=== PATIENT | male | born 1935 | race Two or more races ===

== ENCOUNTER → 2024-06-05 | Outpatient (BNVA) | payer MEDICARE, SELFPAY | END | disposition home or self-care (01) | PROVIDERS: PCP Internal Medicine; Referring Provider Internal Medicine; Visit Provider Urology | DX: N40.1 Benign prostatic hyperplasia with lower urinary tract symptoms (principal); N13.8 Other obstructive and reflux uropathy; N32.89 Other specified disorders of bladder; N32.3 Diverticulum of bladder; Z96.0 Presence of urogenital implants; I10 Essential (primary) hypertension; I25.10 Atherosclerotic heart disease of native coronary artery without angina pectoris | CPT/HCPCS: 99212; G0463 ==

== ENCOUNTER → 2024-06-20 | Outpatient (BNVA) | payer MEDICARE, SELFPAY | END | disposition home or self-care (01) | PROVIDERS: PCP Internal Medicine; Referring Provider Internal Medicine; Visit Provider Urology | DX: N32.89 Other specified disorders of bladder (principal); N32.3 Diverticulum of bladder; Z96.0 Presence of urogenital implants; Z98.890 Other specified postprocedural states; C67.9 Malignant neoplasm of bladder, unspecified; I10 Essential (primary) hypertension; E78.00 Pure hypercholesterolemia, unspecified | CPT/HCPCS: 52310; 96372; 99212; A4217; A4649; C1894; J3260; A9270; G0463 ==

== ENCOUNTER 2024-07-24 14:05 | Inpatient (IN) | payer MEDICARE, SELFPAY ==
[2024-07-24] VITALS (24 sets, daily range): BP systolic 96–157; BP diastolic 44–78; PULSE 87–114; RESP 14–27; TEMP 36.5–37; O2SAT 81–97; BMI 31.0
--- NOTE | 2024-07-24 14:23 | EKG_ITS ---
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
--- NOTE | 2024-07-24 14:27 | XR_ITS ---
Examination: AP chest single view Technique one AP portable upright chest single view Exam date and time: July 24, 2024 1442 hours Comparison April 20, 2017 INDICATIONS: Shortness of breath today, history fluid buildup heart failure FINDINGS: Mild chronic heart failure Moderate enlargement cardiac contour with prominent vascular congestion Bibasilar opacity which may represent superimposed pneumonia Cardiac leads satisfactory position IMPRESSION: Mild chronic heart failure Consider superimposed bibasilar pneumonia Consider ultrasound left hemithorax follow-up to exclude left pleural fluid
[2024-07-24] MEDS: MORPHINE SULF INJ 10 MG/ML VIAL 2 MG IVP (15:22)
[2024-07-24] MEDS: FUROSEMIDE INJ 10 MG/ML 4ML VIAL 80 MG IVP (15:22)
[2024-07-24] MEDS: NITROGLYCERIN OINT 2% 1 INCH PACKET TOP (15:22)
--- NOTE | 2024-07-24 15:42 | EDNOTE_ITS ---
ED SOB =RME/HPI General Chief Complaint: Shortness of Breath/Dyspnea Stated Complaint: WATER LEFT LUNG, SOB; SENT BY DR CRABTREE Time Seen by Provider: 07/24/24 14:12 Arrival date/time: 07/24/24 14:05 RME / HPI RME / HPI Narrative: This section includes all my notes and documentations, including HPI, PE, and ED course. Ricki Stubbs MD HPI: 89-year-old male here with 1-2 week history of worsening cough, productive cough, purulent sputum, and dyspnea. No obvious fever. Increased leg swelling. Reports orthopnea. No chest pain. No other complaints. ROS: All negative except as documented in HPI. Physical Exam: General: Alert and oriented. Respiratory distress. Hypoxia noted needing oxygen. Eyes: Conjunctivae and lids clear. ENT: No nasal congestion. Neck: Supple. Heart: RRR. Lungs: In moderate respiratory distress. Moderately decreased air movement with bilateral rails, L > R. Abdomen: Soft and nontender. Back: No CVA tenderness. Skin: Warm and dry. Legs: Remarkable for pitting edema in the lower legs. Neuro: Alert and oriented X 3. At this point, I suspect CHF. And he was given Lasix and topical NTG and morphine. I reviewed all diagnostic test results. My interpretation of the EKG is sinus rhythm with LBBB. My interpretation of the chest x-ray is bilateral infiltrates, L > R. My review of the bilateral leg US report is no DVT. Blood tests and urine tests remarkable for WBC 30.6, D-dimer > 3820, negative troponin, BNP 31. At this point, diagnoses include: Acute respiratory failure with hypoxia, sepsis, pneumonia, elevated D-dimer, left lower effusion, and CHF. I discussed the case with our [employer] product consultant and our hospitalist. About the presentation and exam and diagnostics and treatments here. And need of further care in the hospital. Will accept the patient. Ricki Stubbs MD Related Data Home Medications ?Medication ?Instructions ?Recorded ?Confirmed simvastatin 40 mg tablet (Zocor) 20 mg PO HS #0 tabs 07/22/15 06/20/24 aspirin 81 mg tablet,delayed 81 mg PO QDAY 12/30/19 06/20/24 release (Aspir-) dorzolamide 2 %-timolol 0.5 % (PF) 1 drp ophthalmic (eye) QDAY 12/30/19 06/20/24 eye drops tamsulosin 0.4 mg capsule 0.4 mg PO QHS 05/02/24 06/20/24 finasteride 5 mg tablet 5 mg PO QDAY 06/20/24 06/20/24 telmisartan 20 mg tablet 20 mg PO QDAY 06/20/24 06/20/24 Allergies Allergy/AdvReac Type Severity Reaction Status Date / Time clopidogrel [From Plavix] Allergy Mild Rash Verified 07/24/24 14:09 Penicillins Allergy Verified 07/24/24 14:09 Course Quality Measures none Orders Category Date Time Status Bedside COVID-19 Antigen Test NOW Care 07/24/24 14:23 Active Bedside Influenza A&B Antigen Test NOW Care 07/24/24 14:[address] Screening NOW Care 07/24/24 14:27 Active EKG (ED ONLY) *Do not use* NOW Care 07/24/24 14:23 Completed EKG (ED ONLY) *Do not use* NOW Care 07/24/24 14:27 Completed Saline [Insert IV] NOW Care 07/24/24 14:26 Active Consult to Cardiology Stat Cons 07/24/24 16:[address] angio chest Stat Exams 07/24/24 14:27 Ordered EKG (ED Only) Stat Exams 07/24/24 14:23 Draft EKG (ED Only) Stat Exams 07/24/24 14:27 Ordered US pleural effusion Stat Exams 07/24/24 15:44 Completed US venous doppler LE BI Stat Exams 07/24/24 15:44 Completed XR chest 1V portable Stat Exams 07/24/24 14:27 Completed ABG [Arterial Blood Gas] Stat Lab 07/24/24 21:16 Completed BNP [B-Type Natriuretic Peptide] Stat Lab 07/24/24 15:16 Completed CBC Stat Lab 07/24/24 15:16 Completed CMP [Comprehensive Metabolic Panel] Stat Lab 07/24/24 15:16 Completed D-Dimer Stat Lab 07/24/24 15:16 Completed Magnesium Stat Lab 07/24/24 15:16 Completed TSH [Thyroid Stimulating Hormone] Stat Lab 07/24/24 15:16 Completed Troponin I Stat Lab 07/24/24 15:16 Completed UA, C/S IF [Urinalysis, C/S if Indicated] Stat Lab 07/24/24 15:44 Completed Azithromycin Inj [Zithromax Inj] 500 mg Med 07/24/24 16:31 Discontinued Sodium Chloride 0.9% 250 ml [Ns] 250 ml IV X1 Furosemide Inj [Lasix Inj] Med 07/24/24 14:25 Discontinued 80 mg IVP X1 ONE Morphine Inj Med 07/24/24 14:25 Discontinued 2 mg IVP X1 ONE Nitroglycerin Oint 2% [Nitro-paste Oint 2%] Med 07/24/24 14:25 Discontinued 1 inch TOP X1 ONE cefTRIAXone [Rocephin] 1,000 mg Med 07/24/24 16:31 Discontinued Sodium Chloride 0.9% (P) [Ns 0.9% (P)] 50 ml IV X1 Vital Signs Vital signs: Vital Signs Temperature 98.6 F 07/24/24 14:17 Pulse Rate 103 H 07/24/24 14:17 Respiratory Rate 20 07/24/24 14:17 Blood Pressure 136/62 H 07/24/24 14:17 Pulse Oximetry (%) 90 L 07/24/24 14:17 Oxygen Delivery Method Room Air 07/24/24 14:17 Shortness of Breath / Dyspnea Patient data External records reviewed:: [facility] previous records Clinical information provided by:: patient and family Social determinants that could affect healthcare access:: none Patient has the following chronic illnesses:: CAD and HTN How is presenting disease/condition affected by chronic disease/condition?: exacerbated by Evaluation data The following diagnostics were reviewed and interpreted by me:: lab results, radiology exam(s) and EKG tracing(s) (My interpretation of the EKG is: Sinus rhy thm (98 bpm) with left BBB. Ricki Stubbs MD) Lab and/or radiology exams considered but not ordered:: None Interpretation Summary: Acute respiratory failure with hypoxia, sepsis, pneumonia, elevated D-dimer, left lower effusion, and CHF. Medications / Prescriptions Medications or Prescriptions considered but not ordered:: None Medication administrations:: Medication Administration History Acetaminophen (Acetaminophen 325 Mg Tablet) 650 mg PO Q6H PRN PRN Reason: Fever >100.5 Stop: 08/23/24 17:22 Last Admin: 07/25/24 01:33 Dose: 650 mg Documented By: KARINE Acetaminophen (Acetaminophen 325 Mg Tablet) 650 mg PO Q6H PRN PRN Reason: PAIN SCALE 1-3 (mild Stop: 08/23/24 17:22 Hydrocodone Bitart/Acetaminophen (Hydrocodone/Apap 5/325 Tablet) 1 tab PO Q6HR PRN PRN Reason: PAIN SCALE 4-10(Mod-Sev Stop: 07/30/24 04:20 Last Admin: 07/25/24 04:39 Dose: 1 tab Documented By: KARINE Aspirin (Aspirin Ec 81 Mg Tabec) 81 mg PO QDAY [facility] Stop: 08/23/24 18:14 Last Admin: 07/24/24 20:11 Dose: 81 mg Documented By: KARINE Atorvastatin Calcium (Atorvastatin Calcium 20 Mg Tablet) 40 mg PO HS [facility] Stop: 08/23/24 20:59 Last Admin: 07/24/24 20:35 Dose: 40 mg Documented By: KARINE Bumetanide (Bumetanide Inj 0.25 Mg/Ml Vial 4 Ml) 2 mg IVP BIDD [facility] Stop: 08/23/24 17:59 Last Admin: 07/24/24 20:14 Dose: 2 mg Documented By: KARINE Docusate Sodium (Docusate Sod 100 Mg Capsule) 100 mg PO QDAY [facility]; Protocol Stop: 08/24/24 08:59 Doxycycline Hyclate (Doxycycline 100 Mg Tablet) 100 mg PO BID [facility] Stop: 07/31/24 20:59 Last Admin: 07/24/24 20:38 Dose: 100 mg Documented By: KARINE Heparin Sodium (Porcine) (Heparin Sod Inj 5000 Unit/Ml Vial) 5,000 unit SC Q8HR [facility] Stop: 08/07/24 21:59 Last Admin: 07/25/24 01:32 Dose: 5,000 unit Documented By: KARINE Co-signed By: URSULA Ceftriaxone Sodium/Dextrose (Rocephin/D5w 1gm Iv Premix) 50 mls @ 100 mls/hr IV QDAY [facility] Stop: 08/01/24 08:59 Losartan Potassium (Losartan Potassium 25 Mg Tablet) 50 mg PO QDAY [facility] Stop: 08/23/24 18:44 Last Admin: 07/24/24 20:12 Dose: 50 mg Documented By: KARINE Ondansetron HCl (Ondansetron Inj 2 Mg/Ml Inj 2 Ml) 4 mg IV Q6H PRN; Protocol PRN Reason: NAUSEA OR VOMITING Stop: 08/23/24 17:22 Tamsulosin HCl (Tamsulosin Hcl 0.4 Mg Capsule) 0.4 mg PO QDAY [facility] Stop: 08/23/24 17:44 Last Admin: 07/24/24 20:11 Dose: 0.4 mg Documented By: KARINE Discontinued Medications Bumetanide (Bumetanide Inj 0.25 Mg/Ml Vial 4 Ml) 1 mg IVP BID [facility] Stop: 08/23/24 20:59 Furosemide (Furosemide Inj 10 Mg/Ml 4ml Vial) 80 mg IVP X1 ONE Stop: 07/24/24 14:26 Last Admin: 07/24/24 15:22 Dose: 80 mg Documented By: EM Azithromycin 500 mg/ Sodium (Chloride) 250 mls @ 250 mls/hr IV X1 ONE Stop: 07/24/24 17:30 Last Infusion: 07/24/24 22:39 Dose: Infused Documented By: Admin: 07/24/24 20:15 Dose: 250 mls/hr Documented By: KARINE Ceftriaxone Sodium 1,000 mg/ (Sodium Chloride) 50 mls @ 100 mls/hr IV X1 ONE Stop: 07/24/24 17:00 Last Infusion: 07/24/24 18:49 Dose: Infused Documented By: Admin: 07/24/24 17:40 Dose: 100 mls/hr Documented By: EM Losartan Potassium (Losartan Potassium 25 Mg Tablet) 50 mg PO QDAY [facility] Stop: 08/23/24 18:29 Morphine Sulfate (Morphine Sulf Inj 10 Mg/Ml Vial) 2 mg IVP X1 ONE Stop: 07/24/24 14:26 Last Admin: 07/24/24 15:22 Dose: 2 mg Documented By: EM Nitroglycerin (Nitroglycerin Oint 2% 1 Inch Packet) 1 inch TOP X1 ONE Stop: 07/24/24 14:26 Last Admin: 07/24/24 15:22 Dose: 1 inch Documented By: EM Potassium Chloride (Potassium Chloride 20 Meq Tabcr) 40 meq PO X1 ONE Stop: 07/24/24 17:45 Last Admin: 07/24/24 20:35 Dose: 40 meq Documented By: KARINE Sodium Chloride (Sodium Chloride Rt 10% 15 Ml Nebu) 5 ml INH X1 ONE Stop: 07/24/24 17:51 Last Admin: 07/25/24 01:34 Dose: Not Given Documented By: AC Non-Admin Reason: Patient Refused In the ER, he was given Lasix and topical NTG and morphine only by me. Consultations Consultation(s) initiated? (list below): Yes Consultation #1 (Physician, Specialty, Details): Cardiology, Dr. Noyola Diagnosis Shortness of Breath Differential Diagnosis: acute exacerbation of chronic obstructive airways disease, congestive heart failure, community acquired pneumonia, asthma with exacerbation, pulmonary embolism and other (CHF, NC, sepsis, pleural effusion) Most likely diagnosis given after review of the tests above:: Acute respiratory failure with hypoxia, sepsis, pneumonia, elevated D-dimer, left lower effusion, and CHF. Admission Indicated Admission indicated?: indicated Explain why admission is indicated or not indicated:: Acute respiratory failure with hypoxia, sepsis, pneumonia, elevated D-dimer, left lower effusion, and CHF. Admission Request Was there a request for admission?: Yes Admission Attestation Admission request attestation: Discussed case with Hospitalist service regarding admission. Discussed patients ED course, exam findings, labs, and radiology results. The Hospitalist [agrees,declines] to accept the patient for admission. Disposition Plan Disposition Plan: Admit Critical Care Time Critical Care Time Critical Care Time: Yes Total Critical Care Time (min.): 36 Attestation: Due to a high probability of clinically significant, life threatening deterioration, the patient required my highest level of preparedness to intervene emergently and I personally spent this critical care time directly and personally managing the patient. This critical care time included obtaining a history; examining the patient; ordering and review of studies; arranging urgent treatment with development of a management plan; evaluation of patient's response to treatment; frequent reassessment; and discussions with family and other providers. It was exclusive of separately billable procedures and treating other patients and teaching time. Ricki Stubbs MD Discharge Plan Plan Patient Disposition: Admit Acute Care w/in Hospital Problem List Clinical Impression: Acute respiratory failure with hypoxia, Pneumonia, CHF (congestive heart failure), Elevated d-dimer, Pleural effusion, left, Sepsis
--- NOTE | 2024-07-24 15:44 | XR_ITS ---
Examination: Venous duplex lower extremity sonogram, bilateral. Date and time of exam: July 24, 2024 1632 hrs. Indications: Onset shortness of breath today, with bilateral leg edema Technique: Multiple sonographic images of the deep venous system have been obtained. B-mode/2-D grayscale imaging of vascular structures and Doppler spectral analysis (waveforms) and color performed Both legs are examined. Findings: Deep venous systems do not demonstrate abnormal echogenicity. All visualized deep veins exhibit compressibility. All visualized deep veins exhibit augmentation. Impression: Negative for deep vein thrombosis
--- NOTE | 2024-07-24 15:44 | XR_ITS ---
Examination: Ultrasound left hemithorax Technique: Grayscale sonographic images left hemithorax Indications: Shortness of breath today, pleural parenchymal disease left base on chest film today Exam date and time: July 24, 2024 1717 hrs. Findings: Moderate left pleural effusion Impression: Moderate left pleural effusion, amenable to ultrasound-guided thoracentesis
[2024-07-24 15:53] LABS: Collection Type, Urine Clean Catch
[2024-07-24 16:00] LABS: Basophils # (Auto) 0.1 Thou/mm3 (0.0-0.2); Basophils % (Auto) 0 % (0-2.5); Eosinophils # (Auto) 0.4 Thou/mm3 (0.0-0.5); Eosinophils % (Auto) 1 % (0-10); Hematocrit 32.8 % (41.0-53.0); Hemoglobin 10.7 g/dL (13.5-16.0); Immature Granulocytes % (Auto) 3 % (0-0); Immature Granulocytes Auto 0.88 Thou/mm3 (0.00-0.00); Lymphocytes # (Auto) 1.8 Thou/mm3 (1.0-4.8); Lymphocytes % (Auto) 6 % (10-50); Mean Corpuscular HGB Conc 32.6 g/dl (31.0-37.0); Mean Corpuscular Hemoglobin 27.3 pg (25.0-35.0); Mean Corpuscular Volume 84 fL (80-100); Monocytes # (Auto) 2.5 Thou/mm3 (0.0-0.8); Monocytes % (Auto) 8 % (0-12); Neutrophils # (Auto) 24.3 Thou/mm3 (1.8-7.7); Neutrophils % (Auto) 81 % (37-80); Nucleated Red Blood Cell # 0.03 Thou/mm3 (0.00-0.00); Nucleated Red Blood Cell % 0 /100 WBC (0); Platelet Count 418 Thou/mm3 (140-440); RDW Standard Deviation 44.1 fL (35.1-43.9); Red Blood Count 3.92 Miln/mm3 (4.50-5.90)
[2024-07-24 16:01] LABS: Bilirubin,Urine Negative (Negative); Blood,Urine Negative (Negative); Clarity,Urine Clear (Clear/Hazy); Color,Urine Lt-Yellow (Lt Yel-Yel); Culture Indicated,Urine Not Indicated; Glucose, Urine Negative (Negative); Hyaline Casts,Urine < 1 /hpf (0-1); Ketones,Urine Negative (Negative); Leukocyte Esterase,Urine Negative (Negative); Nitrite,Urine Negative (Negative); Protein,Urine Negative (Neg - Trace); RBC,Urine 1 /hpf (0-3); Specific Gravity,Urine 1.013 (1.001-1.035); Squamous Epithelial Cell,Urine < 1 /hpf (0-5); Urobilinogen,Urine Negative mg/dL (0.0-1.0); WBC,Urine 2 /hpf (0-5)
[2024-07-24 16:19] LABS: D-Dimer > 3820 ng/mL (<600)
[2024-07-24 16:26] LABS: Alanine Aminotransferase 55 U/L (10-49); Albumin, Serum 4.1 gm/dL (3.4-4.8); Albumin/Globulin Ratio 1.4 (1.2-2.2); Alkaline Phosphatase 128 U/L (46-116); Anion Gap 9 (7-16); Aspartate Amino Transferase 40 U/L (0-34); BUN/Creatinine Ratio 29 Ratio (12-20); Bilirubin,Total 0.5 mg/dL (0.3-1.2); Blood Urea Nitrogen 23 mg/dL (9-23); Calcium 9.7 mg/dL (8.3-10.6); Calcium (Corrected) 9.7 mg/dL (8.5-10.1); Carbon Dioxide 33.1 mMol/L (20.0-31.0); Chloride 93 mMol/L (98-107); Creatinine (Component) 0.8 mg/dL (0.6-1.3); Estimated Creatinine Clearance 74.1 mL/min (>60); Glucose 216 mg/dL (74-106); Osmolality,Calculated 280 (275-295); Potassium 3.6 mMol/L (3.4-5.1); Sodium 135 mMol/L (136-145); Thyroid Stimulating Hormone 0.46 uIU/mL (0.55-4.78); Total Protein 7.1 gm/dL (5.7-8.2); Troponin I < 0.020 ng/mL (0.0-0.045); eGFR > 60 See Note
[2024-07-24 16:27] LABS: B-Type Natriuretic Peptide 31 pg/mL (0-100)
[2024-07-24] MEDS: cefTRIAXone 1,000 MG in SODIUM CHLORIDE 0.9% (P) 50 ML 100 MG IV (17:40)
--- NOTE | 2024-07-24 17:42 | ECHO_ITS ---
Transthoracic Echo Report Ht (in): 69 Wt (lb): 210 Exam Location: ER Status: Emergency Real Estate Operations Manager: Mulu Bejarano Indications: Procedure Performed: BP: 117 / 50 HR: 83 Technical Quality: Technically difficult study MEASUREMENTS (Male / Female) Normal Values 2D ECHO LV Diastolic Diameter PLAX 4.3 cm 4.2 - 5.9 / 3.9 - 5.3 cm LV Systolic Diameter PLAX 2.8 cm IVS Diastolic Thickness 1.1 cm 0.6 - 1.0 / 0.6 - 0.9 cm LVPW Diastolic Thickness 1.1 cm 0.6 - 1.0 / 0.6 - 0.9 cm LV Relative Wall Thickness 0.5 LVOT Diameter 1.7 cm LA Volume Index 31.3 cm?/m? 16 - 28 cm?/m? Ascending Aorta Diameter 3.4 cm M-MODE Aortic Root Diameter MM 2.6 cm LA Systolic Diameter MM 3.6 cm LA Ao Ratio MM 1.4 AV Cusp Separation MM 2.0 cm DOPPLER AV Peak Velocity 194.7 cm/s AV Peak Gradient 15.2 mmHg AV Mean Gradient 7.7 mmHg AV Velocity Time Integral 33.8 cm LVOT Peak Velocity 117.0 cm/s LVOT Peak Gradient 5.5 mmHg LVOT Velocity Time Integral 23.0 cm LVOT Cardiac Index 1986.9 cm?/min?m? AV Area Cont Eq vti 1.5 cm? AV Area Cont Eq pk 1.4 cm? MV Peak Velocity 152.0 cm/s MV Peak Gradient 9.2 mmHg MV Mean Velocity 90.5 cm/s MV Mean Gradient 4.0 mmHg MV Area PHT 4.6 cm? Mitral E Point Velocity 70.3 cm/s Mitral A Point Velocity 138.0 cm/s Mitral E to A Ratio 0.5 LV E' Lateral Velocity 6.7 cm/s Mitral E to LV E' Lateral Ratio 10.4 LV E' Septal Velocity 6.1 cm/s Mitral E to LV E' Septal Ratio 11.5 FINDINGS Left Ventricle Normal left ventricular size, systolic function with no obvious regional wall motion abnormalities.M ild LVH. The ejection fraction is visually estimated at 60-65%. Right Ventricle The right ventricle is normal in size and systolic function. Left Atrium The left atrium is normal by two-dimensional, color flow and Doppler imaging with no structural abnormalities, no thrombus formation present. Right Atrium The right atrium is normal by two-dimensional imaging, color flow and Doppler imaging with no struct ural abnormalities, no thrombus formation present. Atrial Septum The interatrial septum appears normal with no evidence of a shunt. Aorta The aorta is normal by two-dimensional, color flow and Doppler interrogation. Mitral Valve The mitral valve is normal by two-dimensional, color flow and Doppler interrogation. There is no sig nificant mitral valve regurgitation. Aortic Valve Aortic bioprothetic valve mean gradient 4mmHg, vmax 1.5m/s. There is no significant aortic valve regurgitation. Tricuspid Valve The tricuspid valve is normal by two-dimensional, color flow and Doppler interrogation. There is tra ce tricuspid valve regurgitation. Pulmonic Valve There is no significant pulmonic valve regurgitation. Vessels The pulmonary artery appears normal. The inferior vena cava pulmonary and hepatic veins appear kim l. Pericardium The pericardium is normal by two-dimensional imaging. There is no significant pericardial effusion. Other Findings Large pleural effusion present. CONCLUSIONS Normal LV size and function. Mild LVH. Estimated EF 60-65% Normal RV size and function Aortic bioprothetic valve mean gradient 4mmHg, vmax 1.5m/s. Trace TR. Large pleural effusion present. Sherri Arguello (Electronically Signed) Final Date: 25 July 2024 11:56
--- NOTE | 2024-07-24 17:54 | ESHP_ITS ---
Documentation for date of: 07/24/24 HPI History of Present Illness Chief complaint: Shortness of breath History of present illness: Patient's son Was present at the bedside,contributed to the HPI. 89-year-old former smoker male with past medical history of hypertension, congestive heart failure, hyperlipidemia, status post pacemaker, CAD status post stents, status post valve replacement, BPH, cataracts came to the ED from Dr. Geovanna Noyola's office due to shortness of breath. Per son patient had a cold a few weeks ago and then just a few days ago started developing a dry cough approximately and experiencing shortness of breath has been progressive. Patient went to his PCP had an x-ray done was found with pleural effusion on the left side. At that point in time patient went to Dr. Noyola's office evaluated the patient and sent him to the ED. Patient is unable to lay flat endorses orthopnea and sleeps on recliner due to shortness of breath. ED course: Vitals on arrival significant for hypertension systolic blood pressure 130s, tachycardia 103, tachypnea, O2 sat 90% on room air. Labs significant for leukocytosis white blood cells in the 30s, hemoglobin 10.7, bicarb 33.1, chloride 93, glucose 216. D-dimer is more than 3820. EKG showed sinus rhythm with some paced beats possible left bundle branch block, chest x- ray showed left-sided pleural effusion and bibasilar pneumonia. In the ED patient received 80 mg of Lasix, morphine 2 mg, nitroglycerin PMHx: Hypertension, CHF, hyperlipidemia, BPH, cataract SxHx: Pacemaker, stents, TURP procedure, valve replacement Social Hx: Denies alcohol use, denies illicit substances use including THC, former smoker FHx: Unknown Review of Systems Review of Systems Narrative Review of Systems: Narrative ROS GENERAL: Denies fevers/chills or diaphoresis. HEENT: Denies headache or visual/hearing changes. Denies nasal discharge. NEURO: Denies unusual weakness or difficulty speaking. CARDIO: Denies chest pain or palpitations. PULM: + SOB, coughing GI: Denies abdominal pain, N/V/C/D/reflux/gas, bright red blood per rectum or melena. Reports having BMs. URO: Denies burning/itching/pain/urinary changes. MSK/EXT/SKIN: Denies joint/skeletal/muscle pain, issues/changes in upper or lower extremities, itchiness, or superficial pain. PSYCH: Cooperative, pleasant mood & affect. The rest of the review of systems is otherwise negative. Past Medical History Past Medical History NEUROLOGIC: Negative Neurological Disorders CARDIAC: Positive Cardiac Disorders, Cardiac Arrhythmia, Hypercholesterolemia, Valvular Heart Disease and Hypertension; Negative Myocardial Infarction, Atrial Fibrillation, Angina, Heart Murmur, Coronary Artery Disease, Atherosclerotic Heart Disease, Peripheral Vascular Disease, Aneurysm, Congestive Heart Failure, Congenital Heart Disease, Rheumatic Fever, Cardiomyopathy, Edema, Pericarditis, Cellulitis, Deep Vein Thrombosis, Hypotension or Varicose Veins RESPIRATORY: Negative Chronic Obstructive Pulmonary Disease (COPD) or Asthma GASTROINTESTINAL: Negative Gastrointestinal Disorders GENITOURINARY: Negative Genitourinary Disorders or Renal Disease MUSCULOSKELETAL: Negative Arthritis ENT: Positive Cataracts (BILATERAL) ENDOCRINE: Negative Endocrine Disorders, Diabetes Mellitus Type 1, Diabetes Mellitus Type 2, Hypoglycemia, Ubly's Syndrome, Mcduffie's Disease, Hyperthyroidism, Hypothyroidism, Parathyroid Disease, Pituitary Disease, Systemic Lupus Erythematosus, Syndrome of Inappropriate Antidiuretic Hormone (SIADH), Adrenal Disease or Graves' Disease HEMATOLOGIC: Negative Anemia or Sickle Cell Disease OTHER HISTORY: Positive Chicken Pox, Measles and Mumps; Negative Hospitalization (SINCE PACEMAKER), Autoimmune Disease, Falls or Cancer Family History FAMILY HISTORY: Positive Family Cardiac Disorders (FATHER HAD MO/PASSED AT 55Y.O.); Negative Family Psychiatric Problems, Family Respiratory Disorders, Family Gastrointestinal Problems, Family Cancer, Family Surgery or Family Anesthesia Reaction Surgical History SURGICAL: Positive Cardiac Surgery, Valve Replacement, Coronary Stent, Pacemaker (2017) and Tonsillectomy Social History SMOKING STATUS: Never smoker Exam Vital Signs Temp Pulse Resp BP Pulse Ox O2 Del Method O2 Flow Rate 97.7 F 99 23 H 157/78 H 94 L Nasal Cannula 2 07/24/24 17:40 07/24/24 17:40 07/24/24 17:40 07/24/24 17:40 07/24/24 17:40 07/24/24 17:40 07/24/24 17:40 Narrative Exam Physical Exam GENERAL: NAD, AAOx3, hard of hearing HEENT: Moist mucosa. Eyes open, symmetrical, & clear CARDIO: Heart RRR, no obvious murmurs PULM: No noted coughing/dyspnea CTA B/L, no R/W/R GI: Abdomen soft, nondistended, no pain on palpation. BSx4 SKIN/MSK/EXT: +2 pitting lower extremity edema, no pain on palpation. Pedal pulses present B/L NEURO: AAOx3, no focal neuro deficits, able to move all 4 extremities Results: Labs 07/25/24 04:25 07/25/24 04:25 Labs: Short CBC 07/24/24 Range/Units 15:16 WBC 30.0 H (3.8-10.6) Thou/mm3 Hgb 10.7 L (13.5-16.0) g/dL Hct 32.8 L (41.0-53.0) % Plt Count 418 (140-440) Thou/mm3 BMP 07/24/24 15:16 Sodium 135 L Potassium 3.6 Chloride 93 L Carbon Dioxide 33.1 H BUN 23 Creatinine 0.8 Glucose 216 H Calcium 9.7 Cardiac Enzymes 07/24/24 Range/Units 15:16 Troponin I < 0.020 (0.0-0.045) ng/mL Liver Function 07/24/24 Range/Units 15:16 Total Bilirubin 0.5 (0.3-1.2) mg/dL AST 40 H (0-34) U/L ALT 55 H (10-49) U/L Alkaline Phosphatase 128 H (46-116) U/L Albumin 4.1 (3.4-4.8) gm/dL Urine 07/24/24 Range/Units 15:44 Urine Color Lt-Yellow (Lt Yel-Yel) Urine Clarity Clear (Clear/Hazy) Urine pH 6.0 (5.0-7.0) Ur Specific [place] 1.013 (1.001-1.035) Urine Protein Negative (Neg - Trace) Urine Glucose (UA) Negative (Negative) Quality Measures Quality Measures VTE prophylaxis Advance care planning discussed with:: patient and child Medications Home Medications and Allergies Home Medications ?Medication ?Instructions ?Recorded ?Confirmed ?Type simvastatin 40 mg tablet (Zocor) 20 mg PO HS #0 tabs 07/22/15 06/20/24 History aspirin 81 mg tablet,delayed 81 mg PO QDAY 12/30/19 06/20/24 History release (Aspir-) dorzolamide 2 %-timolol 0.5 % (PF) 1 drp ophthalmic (eye) QDAY 12/30/19 06/20/24 History eye drops tamsulosin 0.4 mg capsule 0.4 mg PO QHS 05/02/24 06/20/24 History finasteride 5 mg tablet 5 mg PO QDAY 06/20/24 06/20/24 History telmisartan 20 mg tablet 20 mg PO QDAY 06/20/24 06/20/24 History Allergies Allergy/AdvReac Type Severity Reaction Status Date / Time clopidogrel [From Plavix] Allergy Mild Rash Verified 07/24/24 14:09 Penicillins Allergy Verified 07/24/24 14:09 Visit Medications Acetaminophen (Acetaminophen 325 Mg Tablet) 650 mg PO Q6H PRN PRN Reason: Fever >100.5 Stop: 08/23/24 17:22 Acetaminophen (Acetaminophen 325 Mg Tablet) 650 mg PO Q6H PRN PRN Reason: PAIN SCALE 1-3 (mild Stop: 08/23/24 17:22 Bumetanide (Bumetanide Inj 0.25 Mg/Ml Vial 4 Ml) 2 mg IVP BIDD [facility] Stop: 08/23/24 17:59 Docusate Sodium (Docusate Sod 100 Mg Capsule) 100 mg PO QDAY [facility]; Protocol Stop: 08/24/24 08:59 Doxycycline Hyclate (Doxycycline 100 Mg Tablet) 100 mg PO BID [facility] Stop: 07/31/24 20:59 Heparin Sodium (Porcine) (Heparin Sod Inj 5000 Unit/Ml Vial) 5,000 unit SC Q8HR [facility] Stop: 08/07/24 21:59 Ceftriaxone Sodium/Dextrose (Rocephin/D5w 1gm Iv Premix) 50 mls @ 100 mls/hr IV QDAY [facility] Stop: 08/01/24 08:59 Ondansetron HCl (Ondansetron Inj 2 Mg/Ml Inj 2 Ml) 4 mg IV Q6H PRN; Protocol PRN Reason: NAUSEA OR VOMITING Stop: 08/23/24 17:22 Tamsulosin HCl (Tamsulosin Hcl 0.4 Mg Capsule) 0.4 mg PO QDAY [facility] Stop: 08/23/24 17:44 Discontinued Medications Bumetanide (Bumetanide Inj 0.25 Mg/Ml Vial 4 Ml) 1 mg IVP BID [facility]ITO Stop: 08/23/24 20:59 Furosemide (Furosemide Inj 10 Mg/Ml 4ml Vial) 80 mg IVP X1 ONE Stop: 07/24/24 14:26 Last Admin: 07/24/24 15:22 Dose: 80 mg Azithromycin 500 mg/ Sodium (Chloride) 250 mls @ 250 mls/hr IV X1 ONE Stop: 07/24/24 17:30 Ceftriaxone Sodium 1,000 mg/ (Sodium Chloride) 50 mls @ 100 mls/hr IV X1 ONE Stop: 07/24/24 17:00 Last Admin: 07/24/24 17:40 Dose: 100 mls/hr Morphine Sulfate (Morphine Sulf Inj 10 Mg/Ml Vial) 2 mg IVP X1 ONE Stop: 07/24/24 14:26 Last Admin: 07/24/24 15:22 Dose: 2 mg Nitroglycerin (Nitroglycerin Oint 2% 1 Inch Packet) 1 inch TOP X1 ONE Stop: 07/24/24 14:26 Last Admin: 07/24/24 15:22 Dose: 1 inch Potassium Chloride (Potassium Chloride 20 Meq Tabcr) 40 meq PO X1 ONE Stop: 07/24/24 17:45 Sodium Chloride (Sodium Chloride Rt 10% 15 Ml Nebu) 5 ml INH X1 ONE Stop: 07/24/24 17:51 Assessment & Plan Plan 89-year-old former smoker male with past medical history of hypertension, congestive heart failure, hyperlipidemia who presented to the ED from Dr. Noyola's office due to shortness of breath. Patient will be admitted due to acute hypoxic respiratory failure secondary to acute decompensated heart failure versus bilateral pneumonia. #Acute hypoxic respiratory failure #Left-sided pleural effusion #Congestive heart failure #? Pulmonary embolism-rule out Patient has been having progressive shortness of breath for the past few days, patient endorses orthopnea BNP within normal limits, troponins negative Patient has extensive cardiac history including coronary artery disease with stent placement, congestive heart failure, hypertension, pacemaker placement, valve replacement Chest x-ray was done showed left-sided pleural effusion D-dimer was found to be more than 3820, CTA was ordered however patient was unable to lay flat so study was unable to be done, will likely need some diuresis and later perform study Ultrasound left side of the chest was done, ultrasound of the lower extremities was done -Bumex 2 mg IV twice daily -Strict ins and outs -Fluid restriction 1200 mL -Daily weights -Echo ordered -Keep potassium above 4, magnesium above 2 -Pending CTA chest -Pending ultrasound of lower extremity read -Cardiology Dr. Noyola consulted and appreciate recommendations #Sepsis secondary to bilateral pneumonia #Community-acquired pneumonia Admission patient had leukocytosis, tachycardia, tachypnea 3 out of 4 SIRS criteria with endorgan damage lung Patient had a cold a few weeks ago and then a few days ago started developing a cough with shortness of breath has been progressing till arrival here in the ED. Sepsis 30 cc/kg not given due to likely CHF exacerbation -Ceftriaxone 1 g IV daily [07/24/2024- -Doxycycline 100 mg p.o. twice daily [07/24/2024- -Blood cultures ordered -Lactic acid ordered -Sputum cultures ordered -Procalcitonin ordered #Hypertension #Hyperlipidemia #CAD status post stents #Status post pacemaker #History of valve replacement Patient takes simvastatin 40 mg and baby aspirin -Resumed aspirin 81 mg daily -Started losartan 50 mg daily -Atorvastatin 40 mg daily #Benign prostatic hyperplasia #History of TURP procedure -Resume Flomax 0.4 mg daily Case discussed with my senior Dr. Bocanegra PGY-[address] Sandra Graff MD PGY-1 Disposition: Telemetry Fluids: None Feeding: Cardiac diet Thrombo prophylaxis: Heparin Gastric Ulcer prophylaxis: Not indicated CODE STATUS: DNR Senior resident attestation: Patient evaluated and examined at the bedside, plan of care discussed with rest of the team including my attending physician, except as noted. Patient is a 89-year-old foremost, per, history of CHF recent history of surgical procedure s/p TURP, who presented to the emergency room complaining of shortness of breath after being directed by maintenance repairman for acute CHF. Complaining of cough and shortness of breath for the past 2 days being unable to lay down, orthopnea positive nocturnal dyspnea positive, denied fever, but reported having a cold 1 week ago. Initial labs pertinent for WBC 30,000, pending lactic acid and Pro-Brandt, admitted for acute CHF exacerbation and pneumonia started on IV antibiotics and IV diuresis. Also concern for acute pulmonary embolism, but patient is unable to lay down for CT angiogram, DVT was more than 3000, will proceed with CT angiogram once patient is able to lie down after diuresis. Mendez's catheter ordered as patient history of s/p TURP and aggressive diuresis right now Daljit PGY2 Attending Provider Attestation/Addendum I reviewed labs, imaging, EKG, home medications and prior available records. Face to face evaluation was performed by me. I have personally examined the patient and discussed assessment and plan with the IM team. I reviewed the resident note and agree with the plan with exceptions as below. CHF exacerbation, unknown EF Bilateral pneumonia, bibasilar, organism unknown CAD status post stenting Status post AICD Type 2 diabetes mellitus History of AV replacement History of bladder cancer Started IV diuresis Started ceftriaxone/doxycycline Order echocardiogram Cannot do CTA chest as he is not able to lie flat due to volume overload Ordered ultrasound of the lower extremities to rule out DVT Ordered echocardiogram DVT prophylaxis with subcutaneous heparin Consulted cardiology
[2024-07-24 18:08] LABS: Lactate (Lactic Acid) 1.6 mMol/L (0.4-2.0)
[2024-07-24 18:38] LABS: Procalcitonin 1.02 ng/ml (0.0-0.49)
[2024-07-24] MEDS: TAMSULOSIN HCL 0.4 MG CAPSULE PO (20:11)
[2024-07-24] MEDS: ASPIRIN EC 81 MG TABEC PO (20:11)
[2024-07-24] MEDS: LOSARTAN POTASSIUM 25 MG TABLET 50 MG PO (20:12)
[2024-07-24] MEDS: BUMETANIDE INJ 0.25 MG/ML VIAL 4 ML 2 MG IVP (20:14)
[2024-07-24] MEDS: AZITHROMYCIN INJ 500 MG in SODIUM CHLORIDE 0.9% 250 ML 250 ML 250 MG IV (20:15)
[2024-07-24] MEDS: ATORVASTATIN CALCIUM 20 MG TABLET 40 MG PO (20:35)
[2024-07-24] MEDS: POTASSIUM CHLORIDE 20 mEq TABCR 40 MEQ PO (20:35)
[2024-07-24] MEDS: DOXYCYCLINE 100 MG TABLET PO (20:38)
[2024-07-24 21:23] LABS: Base Excess 11 (-3-3); HCO3 37 mEq/L (20-26); Inspired Oxygen, FIO2 21 %; O2 Saturation 97 % (91-98); PCO2 55 mmHg (32.0-48.0); PO2 82 mmHg (83-108); pH, Arterial 7.44 (7.35-7.45)
[2024-07-24 21:25] LABS: Allen Test Performed/OK; Puncture Site Left Radial
--- NOTE | 2024-07-24 22:44 | PC.RT ---
Pt refused Sputum... Pt says hes too dry and does not want TX to make him cough.
[2024-07-25] VITALS (22 sets, daily range): BP systolic 69–121; BP diastolic 44–65; PULSE 78–100; RESP 13–28; TEMP 35.8–36.8; O2SAT 92–100
--- NOTE | 2024-07-25 | XR_ITS ---
Examination: AP chest single view Technique one AP portable chest single view Exam date and time: July 25, 2024 1403 hours INDICATIONS: Post left thoracentesis today. FINDINGS: No pneumothorax post left thoracentesis Mild enlargement cardiac contour Prominent vascular congestion Cardiac leads adequate position IMPRESSION: No pneumothorax post thoracentesis
[2024-07-25] MEDS: HEPARIN SOD INJ 5000 UNIT/ML VIAL SC ×4 (01:32→20:30)
[2024-07-25] MEDS: ACETAMINOPHEN 325 MG TABLET 650 MG PO (01:33)
[2024-07-25] MEDS: HYDROcodone/APAP 5/325 TABLET 1 TAB PO ×3 (04:39→20:37)
--- NOTE | 2024-07-25 04:52 | PC.NURSE ---
Pt is sitting straight up in [facility]. PT unwilling to lay back at all for fear he cant breath. Pt refuses to take breathing tx do th the fact that they make him cough profusely. Has chronic back pain tylenol gave him no relief. contacted admit Dr and stronger pain med ordered and given. Assisting pt in changeing position frequently to help with back pain.
[2024-07-25 04:55] LABS: Basophils # (Auto) 0.1 Thou/mm3 (0.0-0.2); Basophils % (Auto) 0 % (0-2.5); Eosinophils # (Auto) 0.7 Thou/mm3 (0.0-0.5); Eosinophils % (Auto) 2 % (0-10); Hematocrit 29.8 % (41.0-53.0); Hemoglobin 9.8 g/dL (13.5-16.0); Immature Granulocytes % (Auto) 3 % (0-0); Immature Granulocytes Auto 0.75 Thou/mm3 (0.00-0.00); Lymphocytes % (Auto) 7 % (10-50); Mean Corpuscular HGB Conc 32.9 g/dl (31.0-37.0); Mean Corpuscular Hemoglobin 27.6 pg (25.0-35.0); Mean Corpuscular Volume 84 fL (80-100); Monocytes # (Auto) 2.7 Thou/mm3 (0.0-0.8); Monocytes % (Auto) 9 % (0-12); Neutrophils # (Auto) 24.3 Thou/mm3 (1.8-7.7); Neutrophils % (Auto) 80 % (37-80); Nucleated Red Blood Cell # 0.02 Thou/mm3 (0.00-0.00); Nucleated Red Blood Cell % 0 /100 WBC (0); Platelet Count 354 Thou/mm3 (140-440); RDW Standard Deviation 44.9 fL (35.1-43.9); Red Blood Count 3.55 Miln/mm3 (4.50-5.90); White Blood Count 30.6 Thou/mm3 (3.8-10.6)
[2024-07-25 05:10] LABS: Alanine Aminotransferase 50 U/L (10-49); Albumin, Serum 3.6 gm/dL (3.4-4.8); Albumin/Globulin Ratio 1.3 (1.2-2.2); Alkaline Phosphatase 109 U/L (46-116); Anion Gap 6 (7-16); Aspartate Amino Transferase 32 U/L (0-34); BUN/Creatinine Ratio 27 Ratio (12-20); Bilirubin,Total 0.5 mg/dL (0.3-1.2); Blood Urea Nitrogen 24 mg/dL (9-23); Calcium 9.4 mg/dL (8.3-10.6); Calcium (Corrected) 9.7 mg/dL (8.5-10.1); Carbon Dioxide 35.7 mMol/L (20.0-31.0); Cardiac Risk Estimate 5.3 RATIO (4.0-6.7); Chloride 92 mMol/L (98-107); Cholesterol 117 mg/dL (132-200); Creatinine (Component) 0.9 mg/dL (0.6-1.3); Estimated Creatinine Clearance 65.9 mL/min (>60); Globulin 2.7 gm/dL (2.3-3.5); Glucose 170 mg/dL (74-106); HDL Cholesterol 22 mg/dL (40-60); LDL Cholesterol,Calculated 74 mg/dL (0-130); Magnesium 1.8 mg/dL (1.6-2.6); Osmolality,Calculated 276 (275-295); Phosphorous 4.3 mg/dL (2.4-5.1); Potassium 3.4 mMol/L (3.4-5.1); Sodium 134 mMol/L (136-145); Thyroid Stimulating Hormone 0.78 uIU/mL (0.55-4.78); Total Protein 6.3 gm/dL (5.7-8.2); Triglycerides 104 mg/dL (30-150); eGFR > 60 See Note
--- NOTE | 2024-07-25 05:13 | PC.NURSE ---
pt had refused oxymask earlier and was on NC 5L. pt now accepts oxymask.
--- NOTE | 2024-07-25 06:13 | PC.NURSE ---
Pt resting quietly. pain has significantly improved and pt feeling much better after oxy mask on.
[2024-07-25] MEDS: BUMETANIDE INJ 0.25 MG/ML VIAL 4 ML 2 MG IVP ×2 (06:50→18:04)
[2024-07-25] MEDS: Magnesium Sulfate 4 GM Ivpb 4 GM/50 ML BAG IV (08:04)
[2024-07-25] MEDS: ASPIRIN EC 81 MG TABEC PO (08:19)
[2024-07-25] MEDS: LOSARTAN POTASSIUM 25 MG TABLET 50 MG PO (08:19)
[2024-07-25] MEDS: POTASSIUM CHLORIDE 20 mEq TABCR 40 MEQ PO (08:19)
[2024-07-25] MEDS: POTASSIUM CHL 10 mEq IVPB 10 MEQ/100 ML BAG 100 MEQ IV ×3 (08:20→12:31)
[2024-07-25] MEDS: DOCUSATE SOD 100 MG CAPSULE PO (08:24)
[2024-07-25] MEDS: DOXYCYCLINE 100 MG TABLET PO (08:24)
[2024-07-25] MEDS: TAMSULOSIN HCL 0.4 MG CAPSULE PO (08:24)
[2024-07-25] MEDS: cefTRIAXone/D5w 1gm IV premix 50 ML IV (08:24)
--- NOTE | 2024-07-25 10:21 | PC.NURSE ---
potassium chloride behind, pt keeps bending arm at IV site cutting off infusion repeatedly.
--- NOTE | 2024-07-25 11:29 | PC.CC ---
Patient is a 89 year-old male who presents to the [facility] shortness of breath. ASWZoë made [id number] contact with patient. ASW introduced self, role, and reason for visit. Patient appeared alert and oriented to self, location, and situation. Patient was pleasant and engaged in initial assessment. Patient confirmed information on demographics and reports to living home alone. Patient stated his medical decision maker should he be unable to make his own decisions is his son, Iain Choudhary . At home patient uses a walker to ambulate and reports he completes his own ADLs but his son is always checking up on him. Patient does not use oxygen at home. Patient has a nurse that comes to the home once a week but does not recall which company she is with. Patient receives primary care with [facility]. Upon discharge patient plans to return and is not open to SNF. ASW to follow up with any discharge needs.
--- NOTE | 2024-07-25 11:59 | XR_ITS ---
Examination: Ultrasound-guided left thoracentesis Ultrasound left hemithorax Ultrasound right hemithorax Exam date and time: January 22, 2025 1327 hours INDICATIONS: Difficulty breathing this week, CT chest study yesterday significant left pleural fluid TECHNIQUE AND FINDINGS: Multiple grayscale sonographic images right and left hemithoraces Large left pleural effusion Small right pleural effusion Informed consent provided. Timeout performed. Skin prepped over the left hemithorax and sterile drape applied, hand hygiene ultrasound sterile technique 1% lidocaine administered for local anesthesia Utilizing ultrasonographic guidance 5 Sinhala catheter placed in left pleural space 1900 cc pleural fluid removed Estimated blood loss 0 cc IMPRESSION: Successful ultrasound-guided left thoracentesis, 1900 cc pleural fluid removed
[2024-07-25 12:42] LABS: INR 1.2 (0.9-1.3); Prothrombin Time 12.6 Seconds (9.0-12.2)
[2024-07-25] MEDS: CEFEPIME INJ 1 GM in SODIUM CHLORIDE 0.9% 50 ML IV ×2 (12:59→20:33)
--- NOTE | 2024-07-25 13:48 | PC.NURSE ---
Pt to US @1315, floor RN made aware, pt to go to floor from [facility].
--- NOTE | 2024-07-25 14:01 | ESCONSULT_ITS ---
<Statement entered by Flower Noyola MD - 07/27/24 14:55> I personally examined the patient known him for several years he was having severe shortness of breath admitted hospital large left pleural effusion and pneumonia recommending thoracentesis and CT scan to assess the pneumonia patient clinically appears to be doing a little better but still very short of breath I evaluated the patient in detail all essential components of the note are reviewed by me agree with the treatment plan recommendation as documented with Dr Laureano will continue to follow the patient with you HPI Data of Consult Requesting Physician: Luis Flores MD Admitting Provider: Luis Flores MD Attending Provider: Luis Flores MD Primary Care Provider: Huy Matute NP Consult Narrative History of present illness: Patient is an 89-year-old former smoker male with past medical history of hypertension, 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 On imaging patient noted to have pleural effusion and admitted to hospital for management of pleural effusion and acute hypoxia. Patient well-known by Dr. Noyola and cardiology consulted due to extensive past cardiac history. cc:: cc: Luis Flores MD Exam Vital Signs Temp Pulse Resp BP Pulse Ox O2 Del Method O2 Flow Rate 98.2 F 93 19 104/51 L 99 Nasal Cannula 07/25/24 12:00 07/25/24 12:00 07/25/24 12:07/25/24 12:07/25/24 12:07/25/24 12:07/25/24 07:28 Narrative Exam GENERAL: Pleasant elderly male. NAD, AAOx3, hard of hearing CARDIO: Heart RRR, distant heart sounds. PULM: Chest clear to auscultation bilaterally anteriorly. No wheezing, rhonchi or rales. GI: Abdomen soft, nondistended, no pain on palpation. SKIN/MSK/EXT: +2 pitting lower extremity edema. Results Labs 07/25/24 04:25 07/25/24 04:25 Labs: Short CBC 07/24/24 07/25/24 Range/Units 15:16 04:25 WBC 30.0 H 30.6 H (3.8-10.6) Thou/mm3 Hgb 10.7 L 9.8 L (13.5-16.0) g/dL Hct 32.8 L 29.8 L (41.0-53.0) % Plt Count 418 354 D (140-440) Thou/mm3 BMP 07/24/24 07/25/24 15:16 04:25 Sodium 135 L 134 L Potassium 3.6 3.4 Chloride 93 L 92 L Carbon Dioxide 33.1 H 35.7 H BUN 23 24 H Creatinine 0.8 0.9 Glucose 216 H 170 H Calcium 9.7 9.4 Cardiac Enzymes 07/24/24 Range/Units 15:16 Troponin I < 0.020 (0.0-0.045) ng/mL Liver Function 07/24/24 07/25/24 Range/Units 15:16 04:25 Total Bilirubin 0.5 0.5 (0.3-1.2) mg/dL AST 40 H 32 (0-34) U/L ALT 55 H 50 H (10-49) U/L Alkaline Phosphatase 128 H 109 (46-116) U/L Albumin 4.1 3.6 D (3.4-4.8) gm/dL Urine 07/24/24 Range/Units 15:44 Urine Color Lt-Yellow (Lt Yel-Yel) Urine Clarity Clear (Clear/Hazy) Urine pH 6.0 (5.0-7.0) Ur Specific [place] 1.013 (1.001-1.035) Urine Protein Negative (Neg - Trace) Urine Glucose (UA) Negative (Negative) ABG Interpretation ABG results: 07/24/24 21:16 ABG pH 7.44 ABG pCO2 55 H ABG pO2 82 L ABG HCO3 37 H ABG O2 Saturation 97 ABG Base Excess 11 H Quality Measures Quality Measures none Advance care planning discussed with:: patient Medications Home Medications and Allergies Home Medications ?Medication ?Instructions ?Recorded ?Confirmed ?Type simvastatin 40 mg tablet (Zocor) 20 mg PO HS #0 tabs 07/22/15 06/20/24 History aspirin 81 mg tablet,delayed 81 mg PO QDAY 12/30/19 06/20/24 History release (Aspir-) dorzolamide 2 %-timolol 0.5 % (PF) 1 drp ophthalmic (eye) QDAY 12/30/19 06/20/24 History eye drops tamsulosin 0.4 mg capsule 0.4 mg PO QHS 05/02/24 06/20/24 History finasteride 5 mg tablet 5 mg PO QDAY 06/20/24 06/20/24 History telmisartan 20 mg tablet 20 mg PO QDAY 06/20/24 06/20/24 History Allergies Allergy/AdvReac Type Severity Reaction Status Date / Time clopidogrel [From Plavix] Allergy Mild Rash Verified 07/24/24 14:09 Penicillins Allergy Verified 07/24/24 14:09 Visit Medications Acetaminophen (Acetaminophen 325 Mg Tablet) 650 mg PO Q6H PRN PRN Reason: Fever >100.5 Stop: 08/23/24 17:22 Last Admin: 07/25/24 01:33 Dose: 650 mg Acetaminophen (Acetaminophen 325 Mg Tablet) 650 mg PO Q6H PRN PRN Reason: PAIN SCALE 1-3 (mild Stop: 08/23/24 17:22 Hydrocodone Bitart/Acetaminophen (Hydrocodone/Apap 5/325 Tablet) 1 tab PO Q6HR PRN PRN Reason: PAIN SCALE 4-10(Mod-Sev Stop: 07/30/24 04:20 Last Admin: 07/25/24 04:39 Dose: 1 tab Aspirin (Aspirin Ec 81 Mg Tabec) 81 mg PO QDAY [facility] Stop: 08/23/24 18:14 Last Admin: 07/25/24 08:19 Dose: 81 mg Atorvastatin Calcium (Atorvastatin Calcium 20 Mg Tablet) 40 mg PO HS [facility] Stop: 08/23/24 20:59 Last Admin: 07/24/24 20:35 Dose: 40 mg Bumetanide (Bumetanide Inj 0.25 Mg/Ml Vial 4 Ml) 2 mg IVP BIDD [facility] Stop: 08/23/24 17:59 Last Admin: 07/25/24 06:50 Dose: 2 mg Docusate Sodium (Docusate Sod 100 Mg Capsule) 100 mg PO QDAY [facility]; Protocol Stop: 08/24/24 08:59 Last Admin: 07/25/24 08:24 Dose: 100 mg Heparin Sodium (Porcine) (Heparin Sod Inj 5000 Unit/Ml Vial) 5,000 unit SC Q8HR [facility] Stop: 08/07/24 21:59 Last Admin: 07/25/24 06:51 Dose: 5,000 unit Cefepime HCl 1 gm/ Sodium (Chloride) 50 mls @ 100 mls/hr IV Q12HR [facility] Stop: 08/01/24 11:38 Last Admin: 07/25/24 12:59 Dose: 100 mls/hr Losartan Potassium (Losartan Potassium 25 Mg Tablet) 50 mg PO QDAY [facility] Stop: 08/23/24 18:44 Last Admin: 07/25/24 08:19 Dose: 50 mg Ondansetron HCl (Ondansetron Inj 2 Mg/Ml Inj 2 Ml) 4 mg IV Q6H PRN; Protocol PRN Reason: NAUSEA OR VOMITING Stop: 08/23/24 17:22 Pharmacy Consult (Vancomycin Pharmacy To Dose 1 Each Each) 1 each IV QDAY PRN PRN Reason: CONSULT Stop: 08/24/24 11:44 Tamsulosin HCl (Tamsulosin Hcl 0.4 Mg Capsule) 0.4 mg PO QDAY [facility] Stop: 08/23/24 17:44 Last Admin: 07/25/24 08:24 Dose: 0.4 mg Discontinued Medications Bumetanide (Bumetanide Inj 0.25 Mg/Ml Vial 4 Ml) 1 mg IVP BID [facility] Stop: 08/23/24 20:59 Doxycycline Hyclate (Doxycycline 100 Mg Tablet) 100 mg PO BID [facility] Stop: 07/31/24 20:59 Last Admin: 07/25/24 08:24 Dose: 100 mg Furosemide (Furosemide Inj 10 Mg/Ml 4ml Vial) 80 mg IVP X1 ONE Stop: 07/24/24 14:26 Last Admin: 07/24/24 15:22 Dose: 80 mg Azithromycin 500 mg/ Sodium (Chloride) 250 mls @ 250 mls/hr IV X1 ONE Stop: 07/24/24 17:30 Last Infusion: 07/24/24 22:39 Dose: Infused Ceftriaxone Sodium 1,000 mg/ (Sodium Chloride) 50 mls @ 100 mls/hr IV X1 ONE Stop: 07/24/24 17:00 Last Infusion: 07/24/24 18:49 Dose: Infused Ceftriaxone Sodium/Dextrose (Rocephin/D5w 1gm Iv Premix) 50 mls @ 100 mls/hr IV QDAY [facility] Stop: 08/01/24 08:59 Last Infusion: 07/25/24 12:51 Dose: Infused Magnesium Sulfate (Magnesium Sulfate Ivpb) 4 gm in 50 mls @ 12.5 mls/hr IV X1 ONE Stop: 07/25/24 11:09 Last Infusion: 07/25/24 12:48 Dose: Infused Potassium Chloride (Kcl Ivpb) 10 meq in 100 mls @ 100 mls/hr IV Q1H [facility] Stop: 07/25/24 11:14 Last Admin: 07/25/24 12:31 Dose: 100 mls/hr Vancomycin/Sodium Chloride (Vancomycin/Ns 1 Gm Ivpb) 200 mls @ 120 mls/hr IV X1 ONE Stop: 07/25/24 13:39 Losartan Potassium (Losartan Potassium 25 Mg Tablet) 50 mg PO QDAY [facility] Stop: 08/23/24 18:29 Morphine Sulfate (Morphine Sulf Inj 10 Mg/Ml Vial) 2 mg IVP X1 ONE Stop: 07/24/24 14:26 Last Admin: 07/24/24 15:22 Dose: 2 mg Nitroglycerin (Nitroglycerin Oint 2% 1 Inch Packet) 1 inch TOP X1 ONE Stop: 07/24/24 14:26 Last Admin: 07/24/24 15:22 Dose: 1 inch Potassium Chloride (Potassium Chloride 20 Meq Tabcr) 40 meq PO X1 ONE Stop: 07/24/24 17:45 Last Admin: 07/24/24 20:35 Dose: 40 meq Potassium Chloride (Potassium Chloride 20 Meq Tabcr) 40 meq PO X1 ONE Stop: 07/25/24 07:11 Last Admin: 07/25/24 08:19 Dose: 40 meq Sodium Chloride (Sodium Chloride Rt 10% 15 Ml Nebu) 5 ml INH X1 ONE Stop: 07/24/24 17:51 Last Admin: 07/25/24 01:34 Dose: Not Given Assessment & Plan Plan Patient is an 89-year-old former smoker male with past medical history of hypertension, 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 Patient will be admitted due to acute hypoxic respiratory failure secondary to acute decompensated heart failure versus bilateral pneumonia. #HFpEF EF 60 to 65% Cardiac echo showing EF 60 to 65% with normal LV function and size Patient does have pleural effusion likely secondary to pneumonia VS CHF exacerbation VS malignant Patient getting therapeutic thoracentesis Recommend cytology and labs from pleural fluid Strict ins and outs and fluid restrictions Continue with diuresis #Acute hypoxic respiratory failure #Left-sided pleural effusion #Sepsis secondary to bilateral pneumonia #Community-acquired pneumonia #Hypertension #Hyperlipidemia #CAD status post stents #Status post pacemaker #History of valve replacement #Benign prostatic hyperplasia #History of TURP procedure Continue management per primary team Case discussed with attending fiber optic technician Dr. Dennys Coe MD PGY3
--- NOTE | 2024-07-25 14:16 | PC.RT ---
pt refused to do sputum so it was cancelled
--- NOTE | 2024-07-25 14:42 | PD.RESPRO ---
Documentation for date of: 07/25/24 Subjective Subjective Interval history: Patient seen today at the bedside found awake, alert, oriented x 3. No overnight events. Continues to states shortness of breath, oxygen requirements were increased. Leukocytosis continues to worsen antibiotic regimen broadened to vancomycin and cefepime. Will continue to diurese at this time. Echo showed Normal LV size and function. Mild LVH. Estimated EF 60-65%. Normal RV size and function. Aortic bioprothetic valve mean gradient 4mmHg, vmax 1.5m/s. Trace TR. Large pleural effusion present. Patient underwent left-sided thoracentesis approximately 2 L of fluid removed. Postprocedure chest x-ray does not show much improvement will place patient on BiPAP at this time. Exam Vital Signs Temp Pulse Resp BP Pulse Ox O2 Del Method O2 Flow Rate 98.2 F 93 19 104/51 L 99 Nasal Cannula 10 07/25/24 12:00 07/25/24 12:00 07/25/24 12:00 07/25/24 12:07/25/24 12:07/25/24 12:07/25/24 07:28 Narrative Exam Physical Exam GENERAL: NAD, AAOx3, hard of hearing HEENT: Moist mucosa. Eyes open, symmetrical, & clear CARDIO: Heart RRR, no obvious murmurs PULM: No noted coughing/dyspnea CTA B/L, no R/W/R GI: Abdomen soft, nondistended, no pain on palpation. BSx4 SKIN/MSK/EXT: +2 pitting lower extremity edema, no pain on palpation. Pedal pulses present B/L NEURO: AAOx3, no focal neuro deficits, able to move all 4 extremities Objective Labs 07/26/24 05:01 07/26/24 05:01 Labs: Laboratory Results - last 24 hr 07/24/24 07/24/24 07/24/24 15:16 15:44 18:01 WBC 30.0 H RBC 3.92 L Hgb 10.7 L Hct 32.8 L MCV 84 MCH 27.3 MCHC 32.6 RDW Std Deviation 44.1 H Plt Count 418 Neut % (Auto) 81 H Lymph % (Auto) 6 L [place] % (Auto) 8 Eos % (Auto) 1 Baso % (Auto) 0 Neut # (Auto) 24.3 H Lymph # (Auto) 1.8 [place] # (Auto) 2.5 H Eos # (Auto) 0.4 Baso # (Auto) 0.1 Immature Gran # (Auto) 0.88 H Absolute Nucleated RBC 0.03 H Immature Gran % 3 H Nucleated RBC % 0 PT INR D-Dimer > 3820 H Puncture Site ABG pH ABG pCO2 ABG pO2 ABG HCO3 ABG O2 Saturation ABG Base Excess FiO2 Sodium 135 L Potassium 3.6 Chloride 93 L Carbon Dioxide 33.1 H Anion Gap 9 BUN 23 Creatinine 0.8 Estim Creat Clear Calc 74.1 eGFR > 60 BUN/Creatinine Ratio 29 H Glucose 216 H Calculated Osmolality 280 Lactic Acid 1.6 Calcium 9.7 Corrected Calcium 9.7 Phosphorus Magnesium 2.0 Total Bilirubin 0.5 AST 40 H ALT 55 H Alkaline Phosphatase 128 H Troponin I < 0.020 B-Natriuretic Peptide 31 Total Protein 7.1 Albumin 4.1 Globulin 3.0 Albumin/Globulin Ratio 1.4 Triglycerides Cholesterol LDL Cholesterol, Calc HDL Cholesterol Cholesterol/HDL Ratio Procalcitonin 1.02 H TSH 0.46 L Ur Collection Type Clean Catch Urine Color Lt-Yellow Urine Clarity Clear Urine pH 6.0 Ur Specific [place] 1.013 Urine Protein Negative Urine Glucose (UA) Negative Urine Ketones Negative Urine Blood Negative Urine Nitrite Negative Urine Bilirubin Negative Urine Urobilinogen (Auto) Negative Ur Leukocyte Esterase Negative Urine RBC 1 Urine WBC 2 Ur Squamous Epith Cells < 1 Urine Bacteria None Hyaline Casts < 1 Ur Culture Indicated? Not Indicated 07/24/24 07/25/24 21:16 04:25 WBC 30.6 H RBC 3.55 L Hgb 9.8 L Hct 29.8 L MCV 84 MCH 27.6 MCHC 32.9 RDW Std Deviation 44.9 H Plt Count 354 D Neut % (Auto) 80 Lymph % (Auto) 7 L [place] % (Auto) 9 Eos % (Auto) 2 Baso % (Auto) 0 Neut # (Auto) 24.3 H Lymph # (Auto) 2.0 [place] # (Auto) 2.7 H Eos # (Auto) 0.7 H Baso # (Auto) 0.1 Immature Gran # (Auto) 0.75 H Absolute Nucleated RBC 0.02 H Immature Gran % 3 H Nucleated RBC % 0 PT 12.6 H INR 1.2 D-Dimer Puncture Site Left Radial ABG pH 7.44 ABG pCO2 55 H ABG pO2 82 L ABG HCO3 37 H ABG O2 Saturation 97 ABG Base Excess 11 H FiO2 21 Sodium 134 L Potassium 3.4 Chloride 92 L Carbon Dioxide 35.7 H Anion Gap 6 L BUN 24 H Creatinine 0.9 Estim Creat Clear Calc 65.9 eGFR > 60 BUN/Creatinine Ratio 27 H Glucose 170 H Calculated Osmolality 276 Lactic Acid Calcium 9.4 Corrected Calcium 9.7 Phosphorus 4.3 Magnesium 1.8 Total Bilirubin 0.5 AST 32 ALT 50 H Alkaline Phosphatase 109 Troponin I B-Natriuretic Peptide Total Protein 6.3 Albumin 3.6 D Globulin 2.7 Albumin/Globulin Ratio 1.3 Triglycerides 104 Cholesterol 117 L LDL Cholesterol, Calc 74 HDL Cholesterol 22 L Cholesterol/HDL Ratio 5.3 Procalcitonin TSH 0.78 Ur Collection Type Urine Color Urine Clarity Urine pH Ur Specific [place] Urine Protein Urine Glucose (UA) Urine Ketones Urine Blood Urine Nitrite Urine Bilirubin Urine Urobilinogen (Auto) Ur Leukocyte Esterase Urine RBC Urine WBC Ur Squamous Epith Cells Urine Bacteria Hyaline Casts Ur Culture Indicated? ABG Interpretation ABG results: 07/24/24 21:16 ABG pH 7.44 ABG pCO2 55 H ABG pO2 82 L ABG HCO3 37 H ABG O2 Saturation 97 ABG Base Excess 11 H Quality Measures Quality Measures none Advance care planning discussed with:: patient Assessment & Plan Assessment Current Active Medications: Generic Name Dose Route Start Last Admin Trade Name Freq PRN Reason Stop Dose Admin Acetaminophen 650 mg 07/24/24 17:23 07/25/24 01:33 Acetaminophen 325 Mg Tablet PO 08/23/24 17:22 650 mg Q6H PRN Administration Fever >100.5 Acetaminophen 650 mg 07/24/24 17:23 Acetaminophen 325 Mg Tablet PO 08/23/24 17:22 Q6H PRN PAIN SCALE 1-3 (mild Hydrocodone Bitart/Acetaminophen 1 tab 07/25/24 04:21 07/25/24 04:39 Hydrocodone/Apap 5/325 Tablet PO 07/30/24 04:20 1 tab Q6HR PRN Administration PAIN SCALE 4-10(Mod-Sev Aspirin 81 mg 07/24/24 18:15 07/25/24 08:19 Aspirin Ec 81 Mg Tabec PO 08/23/24 18:14 81 mg QDAY [facility] Administration Atorvastatin Calcium 40 mg 07/24/24 21:00 07/24/24 20:35 Atorvastatin Calcium 20 Mg Tablet PO 08/23/24 20:59 40 mg HS [facility] Administration Bumetanide 2 mg 07/24/24 18:00 07/25/24 06:50 Bumetanide Inj 0.25 Mg/Ml Vial 4 Ml IVP 08/23/24 17:59 2 mg BIDD [facility] Administration Docusate Sodium 100 mg 07/25/24 09:00 07/25/24 08:24 Docusate Sod 100 Mg Capsule PO 08/24/24 08:59 100 mg QDAY [facility] Administration Protocol Heparin Sodium (Porcine) 5,000 unit 07/24/24 22:00 07/25/24 06:51 Heparin Sod Inj 5000 Unit/Ml Vial SC 08/07/24 21:59 5,000 unit Q8HR [facility] Administration Cefepime HCl 1 gm/ Sodium 50 mls @ 100 mls/hr 07/25/24 11:39 07/25/24 12:59 Chloride IV 08/01/24 11:38 100 mls/hr Q12HR [facility] Administration Losartan Potassium 50 mg 07/24/24 18:45 07/25/24 08:19 Losartan Potassium 25 Mg Tablet PO 08/23/24 18:44 50 mg QDAY [facility] Administration Ondansetron HCl 4 mg 07/24/24 17:23 Ondansetron Inj 2 Mg/Ml Inj 2 Ml IV 08/23/24 17:22 Q6H PRN NAUSEA OR VOMITING Protocol Pharmacy Consult 1 each 07/25/24 11:45 Vancomycin Pharmacy To Dose 1 Each Each IV 08/24/24 11:44 QDAY PRN CONSULT Tamsulosin HCl 0.4 mg 07/24/24 17:45 07/25/24 08:24 Tamsulosin Hcl 0.4 Mg Capsule PO 08/23/24 17:44 0.4 mg QDAY [facility] Administration Plan 89-year-old former smoker male with past medical history of hypertension, congestive heart failure, hyperlipidemia who presented to the ED from Dr. Noyola's office due to shortness of breath. Patient will be admitted due to acute hypoxic respiratory failure secondary to acute decompensated heart failure versus bilateral pneumonia. #Acute hypoxic respiratory failure #Left-sided pleural effusion #Congestive heart failure #? Pulmonary embolism-rule out Patient has been having progressive shortness of breath for the past few days, patient endorses orthopnea BNP within normal limits, troponins negative Patient has extensive cardiac history including coronary artery disease with stent placement, congestive heart failure, hypertension, pacemaker placement, valve replacement Chest x-ray was done showed left-sided pleural effusion D-dimer was found to be more than 3820, CTA was ordered however patient was unable to lay flat so study was unable to be done, will likely need some diuresis and later perform study Ultrasound left side of the chest was done, ultrasound of the lower extremities was done negative for DVT Echo showed Normal LV size and function. Mild LVH. Estimated EF 60-65%. Normal RV size and function. Aortic bioprothetic valve mean gradient 4mmHg, vmax 1.5m/s. Trace TR. Large pleural effusion present. Patient underwent left-sided thoracentesis approximately 2 L of fluid removed. Postprocedure chest x-ray does not show much improvement will place patient on BiPAP at this time. -Bumex 2 mg IV twice daily -Strict ins and outs -Fluid restriction 1200 mL -Daily weights -BiPAP -Keep potassium above 4, magnesium above 2 -Pending CTA chest -Cardiology Dr. Noyola consulted and appreciate recommendations #Sepsis secondary to bilateral pneumonia #Community-acquired pneumonia Admission patient had leukocytosis, tachycardia, tachypnea 3 out of 4 SIRS criteria with endorgan damage lung Patient had a cold a few weeks ago and then a few days ago started developing a cough with shortness of breath has been progressing till arrival here in the ED. Sepsis 30 cc/kg not given due to likely CHF exacerbation Lactic acid normal, Pro-Brandt 1.02 -On vancomycin -On cefepime -Blood cultures pending -Sputum cultures pending -Urine culture pending #Hypertension #Hyperlipidemia #CAD status post stents #Status post pacemaker #History of valve replacement Patient takes simvastatin 40 mg and baby aspirin -Resumed aspirin 81 mg daily -Chronic losartan 50 mg daily -Atorvastatin 40 mg daily #Benign prostatic hyperplasia #History of TURP procedure -Resume Flomax 0.4 mg daily Case discussed with my senior Dr. Bocanegra PGY-[address] Sandra Graff MD PGY-1 Disposition: Telemetry Fluids: None Feeding: Cardiac diet Thrombo prophylaxis: Heparin Gastric Ulcer prophylaxis: Not indicated CODE STATUS: DNR Senior resident attestation: Patient evaluated and examined at the bedside, plan of care discussed with rest of the team including my attending physician, except as noted. Patient is an 89-year-old male past medical history of bladder mass recent surgical procedure s/p TURP, recent hospitalization for surgery, was having cold and flulike symptoms for the past week, complaining of worsening shortness of breath for the past 2 to 3 days, complaining of orthopnea, patient went to see his hospice aide Dr. Reginaldo Noyola who directed him to the emergency room for further workup and admission. Patient is admitted for acute pulmonary edema secondary to CHF as well as concern for superimposed pneumonia. Leukocytosis could possibly be reactive versus secondary to pneumonia. Noted pleural effusion on chest x-ray, there is concern for pulm embolism due to elevated D-dimers, negative Doppler venous ultrasound bilateral lower limbs, CT angiogram was ordered to rule out pulmonary embolism but patient is unable to lay flat due to severe orthopnea. Overnight patient has increasing oxygen requirements up to 10 L via oxy mask, patient was started on IV diuresis Bumex 2 mg twice daily, Mendez's bag was emptied multiple times, patient is s/p thoracentesis, 2 L drained, post Thora chest x-ray did not show pneumothorax, but noted blunting of CP angle on the left and worsening vascular congestion. Will start the patient on BiPAP, once patient is able to lay flat and get the CT chest done, will rule out pulmonary embolism as well as any other underlying pathology. #Acute CHF #Acute hypoxic respiratory failure #Concern for pneumonia #Pleural effusion #Pulmonary edema #History of bladder surgery status post TURP Quresh PGY2 Attending Provider Attestation/Addendum I reviewed labs, imaging, EKG, home medications and prior available records. Face to face evaluation was performed by me. I have personally examined the patient and discussed assessment and plan with the IM team. I reviewed the resident note and agree with the plan with exceptions as below. CHF exacerbation, unknown EF Bilateral pneumonia, bibasilar, organism unknown CAD status post stenting Status post AICD Type 2 diabetes mellitus History of AV replacement History of bladder cancer Started IV diuresis Ordered IR guided pleurocentesis given the pleural effusion Escalated antibiotics to Vanco cefepime given the leukocytosis and borderline hypotension Cannot do CTA chest as he is not able to lie flat due to volume overload Ordered ultrasound of the lower extremities to rule out DVT: Showed no DVT Ordered echocardiogram DVT prophylaxis with subcutaneous heparin Consulted cardiology
[2024-07-25] MEDS: POTASSIUM CHL 10 mEq IVPB 10 MEQ/100 ML BAG 50 MEQ IV (14:49)
[2024-07-25] MEDS: VANCOMYCIN/NS 1 GM IVPB 200 ML IV (15:31)
[2024-07-25 16:57] LABS: Pleural Fluid WBC 2400 /cmm
[2024-07-25 17:05] LABS: Pleural Fluid Appearance Hazy; Pleural Fluid Color Straw; Pleural Fluid RBC 17000 /cmm
[2024-07-25 17:15] LABS: Amylase,Pleural Fluid < 20 IU/L; Glucose,Pleural Fluid 204 mg/dL; LDH,Pleural Fluid 263 IU/L; Protein Total,Pleural Fluid 3.9 g/dL
[2024-07-25] MEDS: ATORVASTATIN CALCIUM 20 MG TABLET 40 MG PO (20:30)
[2024-07-26] VITALS (11 sets, daily range): BP systolic 96–115; BP diastolic 52–77; PULSE 69–118; RESP 12–26; TEMP 36.1–36.4; O2SAT 92–100; BMI 29.7
[2024-07-26] MEDS: BUMETANIDE INJ 0.25 MG/ML VIAL 4 ML 2 MG IVP ×2 (05:14→17:35)
[2024-07-26] MEDS: HEPARIN SOD INJ 5000 UNIT/ML VIAL SC ×3 (05:14→20:05)
[2024-07-26 05:53] LABS: Basophils # (Auto) 0.1 Thou/mm3 (0.0-0.2); Basophils % (Auto) 0 % (0-2.5); Eosinophils # (Auto) 0.7 Thou/mm3 (0.0-0.5); Eosinophils % (Auto) 2 % (0-10); Hematocrit 28.6 % (41.0-53.0); Hemoglobin 9.2 g/dL (13.5-16.0); Immature Granulocytes % (Auto) 3 % (0-0); Immature Granulocytes Auto 0.99 Thou/mm3 (0.00-0.00); Lymphocytes # (Auto) 1.8 Thou/mm3 (1.0-4.8); Lymphocytes % (Auto) 6 % (10-50); Mean Corpuscular HGB Conc 32.2 g/dl (31.0-37.0); Mean Corpuscular Hemoglobin 27.6 pg (25.0-35.0); Mean Corpuscular Volume 86 fL (80-100); Monocytes # (Auto) 2.4 Thou/mm3 (0.0-0.8); Monocytes % (Auto) 8 % (0-12); Neutrophils # (Auto) 25.1 Thou/mm3 (1.8-7.7); Neutrophils % (Auto) 81 % (37-80); Nucleated Red Blood Cell % 0 /100 WBC (0); Platelet Count 287 Thou/mm3 (140-440); RDW Standard Deviation 46.4 fL (35.1-43.9); Red Blood Count 3.33 Miln/mm3 (4.50-5.90)
[2024-07-26 06:14] LABS: Alanine Aminotransferase 48 U/L (10-49); Albumin, Serum 3.5 gm/dL (3.4-4.8); Albumin/Globulin Ratio 1.3 (1.2-2.2); Alkaline Phosphatase 120 U/L (46-116); Anion Gap 6 (7-16); Aspartate Amino Transferase 24 U/L (0-34); BUN/Creatinine Ratio 27 Ratio (12-20); Bilirubin,Total 0.4 mg/dL (0.3-1.2); Blood Urea Nitrogen 32 mg/dL (9-23); Calcium 9.5 mg/dL (8.3-10.6); Calcium (Corrected) 9.9 mg/dL (8.5-10.1); Carbon Dioxide 34.6 mMol/L (20.0-31.0); Chloride 92 mMol/L (98-107); Creatinine (Component) 1.2 mg/dL (0.6-1.3); Estimated Creatinine Clearance 48.4 mL/min (>60); Globulin 2.6 gm/dL (2.3-3.5); Glucose 153 mg/dL (74-106); Magnesium 2.4 mg/dL (1.6-2.6); Osmolality,Calculated 276 (275-295); Phosphorous 4.4 mg/dL (2.4-5.1); Potassium 3.8 mMol/L (3.4-5.1); Sodium 133 mMol/L (136-145); Total Protein 6.1 gm/dL (5.7-8.2); eGFR 59 See Note
[2024-07-26] MEDS: LOSARTAN POTASSIUM 25 MG TABLET 50 MG PO (09:12)
[2024-07-26] MEDS: TAMSULOSIN HCL 0.4 MG CAPSULE PO (09:12)
[2024-07-26] MEDS: POTASSIUM CHLORIDE 10% 20 MEQ/15 ML UDC 40 MEQ PO (09:12)
[2024-07-26] MEDS: ASPIRIN EC 81 MG TABEC PO (09:12)
[2024-07-26] MEDS: CEFEPIME INJ 1 GM in SODIUM CHLORIDE 0.9% 50 ML IV ×2 (09:13→20:05)
[2024-07-26] MEDS: guaiFENesin SYRUP 200 MG/10 ML UDC PO (10:18)
[2024-07-26 10:38] LABS: Path Review Blood Smear Sent to Pathologist
--- NOTE | 2024-07-26 10:55 | ESPR_ITS ---
<Statement entered by Flower Noyola MD - 07/27/24 14:59> I personally examined the patient with resident physician Dr. Anthony Coe appears to be clinically doing better patient continues or shortness of breath thoracentesis performed more than 1 L fluid was removed appears to be improving but still white count is quite elevated acutely ill discussed with daughter about plan patient requires prolonged hospitalization because of his acutely ill as well as bilateral extensive pneumonia and multiple comorbidities. Documentation for date of: 07/26/24 Subjective Subjective Interval history: Patient seen and assessed at bedside. Patient continues on 4 L nasal cannula and states to be feeling slightly better. Patient still has 2+ lower extremity edema. Patient denies any chest pain at this time. Exam Vital Signs Temp Pulse Resp BP Pulse Ox O2 Del Method O2 Flow Rate 96.9 F 100 20 115/60 94 L Nasal Cannula 4 07/26/24 08:00 07/26/24 09:12 07/26/24 08:00 07/26/24 09:12 07/26/24 08:00 07/26/24 08:00 07/26/24 08:00 Narrative Exam GENERAL: Pleasant elderly male. NAD, AAOx3, hard of hearing CARDIO: Heart RRR, distant heart sounds. PULM: Chest clear to auscultation bilaterally anteriorly. No wheezing, rhonchi or rales. GI: Abdomen soft, nondistended, no pain on palpation. SKIN/MSK/EXT: +2 pitting lower extremity edema. Objective Labs 07/26/24 05:01 07/26/24 05:01 Labs: Laboratory Results - last 24 hr 07/25/24 07/25/24 07/26/24 04:25 15:25 05:01 WBC 31.0 H RBC 3.33 L Hgb 9.2 L Hct 28.6 L MCV 86 MCH 27.6 MCHC 32.2 RDW Std Deviation 46.4 H Plt Count 287 D Neut % (Auto) 81 H Lymph % (Auto) 6 L [place] % (Auto) 8 Eos % (Auto) 2 Baso % (Auto) 0 Neut # (Auto) 25.1 H Lymph # (Auto) 1.8 [place] # (Auto) 2.4 H Eos # (Auto) 0.7 H Baso # (Auto) 0.1 Immature Gran # (Auto) 0.99 H Absolute Nucleated RBC 0.00 Immature Gran % 3 H Nucleated RBC % 0 Smear Path Review Sent to Pathologist PT 12.6 H INR 1.2 Sodium 133 L Potassium 3.8 Chloride 92 L Carbon Dioxide 34.6 H Anion Gap 6 L BUN 32 H Creatinine 1.2 Estim Creat Clear Calc 48.4 L eGFR 59 L BUN/Creatinine Ratio 27 H Glucose 153 H Calculated Osmolality 276 Calcium 9.5 Corrected Calcium 9.9 Phosphorus 4.4 Magnesium 2.4 Total Bilirubin 0.4 AST 24 ALT 48 Alkaline Phosphatase 120 H Total Protein 6.1 Albumin 3.5 Globulin 2.6 Albumin/Globulin Ratio 1.3 Pleural Color Straw Pleural Appearance Hazy Pleural WBC 2400 Pleural RBC 23057 Pleural Polynuclear WBC 34.0 Pleural Mononuclear WBC 66.0 Pleural Total Protein 3.9 Pleural LDH 263 Pleural Glucose 204 Pleural Amylase < 20 ABG Interpretation ABG results: 07/24/24 21:16 ABG pH 7.44 ABG pCO2 55 H ABG pO2 82 L ABG HCO3 37 H ABG O2 Saturation 97 ABG Base Excess 11 H Quality Measures Quality Measures none Advance care planning discussed with:: patient and child Assessment & Plan Assessment Current Active Medications: Generic Name Dose Route Start Last Admin Trade Name Freq PRN Reason Stop Dose Admin Acetaminophen 650 mg 07/24/24 17:23 07/25/24 01:33 Acetaminophen 325 Mg Tablet PO 08/23/24 17:22 650 mg Q6H PRN Administration Fever >100.5 Acetaminophen 650 mg 07/24/24 17:23 Acetaminophen 325 Mg Tablet PO 08/23/24 17:22 Q6H PRN PAIN SCALE 1-3 (mild Hydrocodone Bitart/Acetaminophen 1 tab 07/25/24 04:21 07/25/24 20:37 Hydrocodone/Apap 5/325 Tablet PO 07/30/24 04:20 1 tab Q6HR PRN Administration PAIN SCALE 4-10(Mod-Sev Aspirin 81 mg 07/24/24 18:15 07/26/24 09:12 Aspirin Ec 81 Mg Tabec PO 08/23/24 18:14 81 mg QDAY VERITO Administration Atorvastatin Calcium 40 mg 07/24/24 21:00 07/25/24 20:30 Atorvastatin Calcium 20 Mg Tablet PO 08/23/24 20:59 40 mg HS VERITO Administration Bumetanide 2 mg 07/24/24 18:00 07/26/24 05:14 Bumetanide Inj 0.25 Mg/Ml Vial 4 Ml IVP 08/23/24 17:59 2 mg BIDD VERITO Administration Docusate Sodium 100 mg 07/25/24 09:00 07/26/24 09:33 Docusate Sod 100 Mg Capsule PO 08/24/24 08:59 Not Given QDAY VERITO Protocol Heparin Sodium (Porcine) 5,000 unit 07/24/24 22:00 07/26/24 05:14 Heparin Sod Inj 5000 Unit/Ml Vial SC 08/07/24 21:59 5,000 unit Q8HR VERITO Administration Cefepime HCl 1 gm/ Sodium 50 mls @ 100 mls/hr 07/25/24 21:00 07/26/24 09:13 Chloride IV 08/01/24 11:38 100 mls/hr Q12HR VERITO Administration Vancomycin/Sodium Chloride 200 mls @ 120 mls/hr 07/26/24 10:00 Vancomycin/Ns 1 Gm Ivpb IV 08/02/24 09:59 QDAY@1000 VERITO Protocol Losartan Potassium 50 mg 07/24/24 18:45 07/26/24 09:12 Losartan Potassium 25 Mg Tablet PO 08/23/24 18:44 50 mg QDAY VERITO Administration Ondansetron HCl 4 mg 07/24/24 17:23 Ondansetron Inj 2 Mg/Ml Inj 2 Ml IV 08/23/24 17:22 Q6H PRN NAUSEA OR VOMITING Protocol Pharmacy Consult 1 each 07/25/24 11:45 Vancomycin Pharmacy To Dose 1 Each Each IV 08/24/24 11:44 QDAY PRN CONSULT Tamsulosin HCl 0.4 mg 07/24/24 17:45 07/26/24 09:12 Tamsulosin Hcl 0.4 Mg Capsule PO 08/23/24 17:44 0.4 mg QDAY VERITO Administration Plan Patient is an 89-year-old former smoker male with past medical history of hypertension, 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 Patient will be admitted due to acute hypoxic respiratory failure secondary to acute decompensated heart failure versus bilateral pneumonia. #HFpEF EF 60 to 65% Cardiac echo showing EF 60 to 65% with normal LV function and size Patient does have pleural effusion likely secondary to pneumonia VS CHF exacerbation VS malignant Patient got 2 L removed from thoracentesis which was exudative per lights criteria Strict ins and outs and fluid restrictions Continue with aggressive diuresis #Acute hypoxic respiratory failure #Left-sided pleural effusion #Sepsis secondary to bilateral pneumonia #Community-acquired pneumonia #Hypertension #Hyperlipidemia #CAD status post stents #Status post pacemaker #History of valve replacement #Benign prostatic hyperplasia #History of TURP procedure Continue management per primary team Case discussed with attending training officer Dr. Dennys Coe MD PGY3
[2024-07-26] MEDS: VANCOMYCIN/NS 1 GM IVPB 200 ML IV (10:57)
[2024-07-26] MEDS: HYDROcodone/APAP 5/325 TABLET 1 TAB PO ×2 (11:06→20:05)
--- NOTE | 2024-07-26 11:44 | XR_ITS ---
Examination: CTA chest with intravenous contrast 2-D reconstructions 3-D reconstructions, vascular Date and time of exam: July 26, 2024 1429 hrs. Indications: Onset chest pain shortness of breath today CTDI: vol (mGy) 42.7 DLP: (mGycm) 540 Technique: Multiple axial sections of the thorax have been obtained. 3 mm slice thickness, from below the hemidiaphragms to above the apices of the lungs. Mediastinal and lung density settings have been obtained. 2-D sagittal and coronal reconstructions. 3-D angiographic renderings, 3-D volume renderings, 3D post processing, vascular maximum intensity projections obtained. Contrast administered is 100 cc Isovue-370. Low dose protocols were performed. One or more of the following dose reduction techniques were used; automated exposure control, adjustment of the mA and/or KV according to patient size, use of iterative reconstruction technique. Findings: No thoracic aortic aneurysm dilatation or dissection Pulmonary artery opacification peripheral branches is not optimal, no gross pulmonary artery emboli Mild to moderate enlargement cardiac contour Extensive opacities throughout both lungs consistent with pneumonia, especially at the lung bases with moderate bilateral pleural fluid Small preaortic lymph nodes Enlarged substernal left thyroid Fatty liver with irregular contour Absent gallbladder Spleen not enlarged No pancreatic mass Impression: Pulmonary artery opacification is limited No gross pulmonary artery emboli Extensive bilateral pneumonia
[2024-07-26 11:58] LABS: LDH (Lactate Dehydrogenase) 191 U/L (120-246)
--- NOTE | 2024-07-26 12:12 | PD.RESPRO ---
Documentation for date of: 07/26/24 Subjective Subjective Interval history: Patient seen today at the bedside fine awake, alert, oriented x 3. Overnight patient refused BiPAP. continues to report shortness of breath. Vital signs stable at this time. Spoke to the patient is agreeable to use BiPAP. Ordered CT angio chest will follow-up on the results if patient can lay flat on the bed. Labs significant for uptrending leukocytosis possibly in the setting of pneumonia versus underlying malignancy. Pending pleural fluid culture however per lights criteria pleural fluid seems to be exudative effusion. Exam Vital Signs Temp Pulse Resp BP Pulse Ox O2 Del Method O2 Flow Rate 96.9 F 100 20 115/60 94 L Nasal Cannula 4 07/26/24 08:00 07/26/24 09:12 07/26/24 08:00 07/26/24 09:12 07/26/24 08:00 07/26/24 08:00 07/26/24 08:00 Narrative Exam Physical Exam GENERAL: NAD, AAOx3, hard of hearing HEENT: Moist mucosa. Eyes open, symmetrical, & clear CARDIO: Heart RRR, no obvious murmurs PULM: No noted coughing/dyspnea CTA B/L, no R/W/R GI: Abdomen soft, nondistended, no pain on palpation. BSx4 SKIN/MSK/EXT: +2 pitting lower extremity edema, no pain on palpation. Pedal pulses present B/L NEURO: AAOx3, no focal neuro deficits, able to move all 4 extremities Objective Labs 07/27/24 04:38 07/27/24 04:38 Labs: Laboratory Results - last 24 hr 07/25/24 07/25/24 07/26/24 04:25 15:25 05:01 WBC 31.0 H RBC 3.33 L Hgb 9.2 L Hct 28.6 L MCV 86 MCH 27.6 MCHC 32.2 RDW Std Deviation 46.4 H Plt Count 287 D Neut % (Auto) 81 H Lymph % (Auto) 6 L [place] % (Auto) 8 Eos % (Auto) 2 Baso % (Auto) 0 Neut # (Auto) 25.1 H Lymph # (Auto) 1.8 [place] # (Auto) 2.4 H Eos # (Auto) 0.7 H Baso # (Auto) 0.1 Immature Gran # (Auto) 0.99 H Absolute Nucleated RBC 0.00 Immature Gran % 3 H Nucleated RBC % 0 Smear Path Review Sent to Pathologist PT 12.6 H INR 1.2 Sodium 133 L Potassium 3.8 Chloride 92 L Carbon Dioxide 34.6 H Anion Gap 6 L BUN 32 H Creatinine 1.2 Estim Creat Clear Calc 48.4 L eGFR 59 L BUN/Creatinine Ratio 27 H Glucose 153 H Calculated Osmolality 276 Calcium 9.5 Corrected Calcium 9.9 Phosphorus 4.4 Magnesium 2.4 Total Bilirubin 0.4 AST 24 ALT 48 Alkaline Phosphatase 120 H Lactate Dehydrogenase 191 Total Protein 6.1 Albumin 3.5 Globulin 2.6 Albumin/Globulin Ratio 1.3 Pleural Color Straw Pleural Appearance Hazy Pleural WBC 2400 Ple[place] 95114 Pleural Polynuclear WBC 34.0 Pleural Mononuclear WBC 66.0 Pleural Total Protein 3.9 Pleural LDH 263 Pleural Glucose 204 Pleural Amylase < 20 ABG Interpretation ABG results: 07/24/24 21:16 ABG pH 7.44 ABG pCO2 55 H ABG pO2 82 L ABG HCO3 37 H ABG O2 Saturation 97 ABG Base Excess 11 H Quality Measures Quality Measures none Advance care planning discussed with:: patient Assessment & Plan Assessment Current Active Medications: Generic Name Dose Route Start Last Admin Trade Name Freq PRN Reason Stop Dose Admin Acetaminophen 650 mg 07/24/24 17:23 07/25/24 01:33 Acetaminophen 325 Mg Tablet PO 08/23/24 17:22 650 mg Q6H PRN Administration Fever >100.5 Acetaminophen 650 mg 07/24/24 17:23 Acetaminophen 325 Mg Tablet PO 08/23/24 17:22 Q6H PRN PAIN SCALE 1-3 (mild Hydrocodone Bitart/Acetaminophen 1 tab 07/25/24 04:21 07/26/24 11:06 Hydrocodone/Apap 5/325 Tablet PO 07/30/24 04:20 1 tab Q6HR PRN Administration PAIN SCALE 4-10(Mod-Sev Aspirin 81 mg 07/24/24 18:15 07/26/24 09:12 Aspirin Ec 81 Mg Tabec PO 08/23/24 18:14 81 mg QDAY VERITO Administration Atorvastatin Calcium 40 mg 07/24/24 21:00 07/25/24 20:30 Atorvastatin Calcium 20 Mg Tablet PO 08/23/24 20:59 40 mg HS VERITO Administration Bumetanide 2 mg 07/24/24 18:00 07/26/24 05:14 Bumetanide Inj 0.25 Mg/Ml Vial 4 Ml IVP 08/23/24 17:59 2 mg BIDD VERITO Administration Docusate Sodium 100 mg 07/25/24 09:00 07/26/24 09:33 Docusate Sod 100 Mg Capsule PO 08/24/24 08:59 Not Given QDAY VERITO Protocol Heparin Sodium (Porcine) 5,000 unit 07/24/24 22:00 07/26/24 05:14 Heparin Sod Inj 5000 Unit/Ml Vial SC 08/07/24 21:59 5,000 unit Q8HR VERITO Administration Cefepime HCl 1 gm/ Sodium 50 mls @ 100 mls/hr 07/25/24 21:00 07/26/24 09:13 Chloride IV 08/01/24 11:38 100 mls/hr Q12HR VERITO Administration Vancomycin/Sodium Chloride 200 mls @ 120 mls/hr 07/26/24 10:00 07/26/24 10:57 Vancomycin/Ns 1 Gm Ivpb IV 08/02/24 09:59 120 mls/hr QDAY@1000 VERITO Administration Protocol Losartan Potassium 50 mg 07/24/24 18:45 07/26/24 09:12 Losartan Potassium 25 Mg Tablet PO 08/23/24 18:44 50 mg QDAY VERITO Administration Ondansetron HCl 4 mg 07/24/24 17:23 Ondansetron Inj 2 Mg/Ml Inj 2 Ml IV 08/23/24 17:22 Q6H PRN NAUSEA OR VOMITING Protocol Pharmacy Consult 1 each 07/25/24 11:45 Vancomycin Pharmacy To Dose 1 Each Each IV 08/24/24 11:44 QDAY PRN CONSULT Tamsulosin HCl 0.4 mg 07/24/24 17:45 07/26/24 09:12 Tamsulosin Hcl 0.4 Mg Capsule PO 08/23/24 17:44 0.4 mg QDAY VERITO Administration Plan 89-year-old former smoker male with past medical history of hypertension, congestive heart failure, hyperlipidemia who presented to the ED from Dr. Noyola's office due to shortness of breath. Patient will be admitted due to acute hypoxic respiratory failure secondary to acute decompensated heart failure versus bilateral pneumonia. #Acute hypoxic respiratory failure #Left-sided pleural effusion # HFpEF 60-65% #? Pulmonary embolism-rule out Patient has been having progressive shortness of breath for the past few days, patient endorses orthopnea BNP within normal limits, troponins negative Patient has extensive cardiac history including coronary artery disease with stent placement, congestive heart failure, hypertension, pacemaker placement, valve replacement Chest x-ray was done showed left-sided pleural effusion D-dimer was found to be more than 3820, CTA was ordered however patient was unable to lay flat so study was unable to be done, will likely need some diuresis and later perform study Ultrasound left side of the chest was done, ultrasound of the lower extremities was done negative for DVT Echo showed Normal LV size and function. Mild LVH. Estimated EF 60-65%. Normal RV size and function. Aortic bioprothetic valve mean gradient 4mmHg, vmax 1.5m/s. Trace TR. Large pleural effusion present. Patient underwent left-sided thoracentesis approximately 2 L of fluid removed. Postprocedure chest x-ray does not show much improvement will place patient on BiPAP at this time. -Bumex 2 mg IV twice daily -Strict ins and outs -Fluid restriction 1200 mL -Daily weights -BiPAP -Pending pleural fluid culture -Keep potassium above 4, magnesium above 2 -Pending CTA chest -Cardiology Dr. Noyola consulted and appreciate recommendations #Sepsis secondary to bilateral pneumonia #Community-acquired pneumonia Admission patient had leukocytosis, tachycardia, tachypnea 3 out of 4 SIRS criteria with endorgan damage lung Patient had a cold a few weeks ago and then a few days ago started developing a cough with shortness of breath has been progressing till arrival here in the ED. Sepsis 30 cc/kg not given due to likely CHF exacerbation Lactic acid normal, Pro-Brandt 1.02 Blood cultures negative in 24 hours, urine culture is negative -On vancomycin -On cefepime -Sputum cultures pending #Hypertension #Hyperlipidemia #CAD status post stents #Status post pacemaker #History of valve replacement Patient takes simvastatin 40 mg and baby aspirin -Resumed aspirin 81 mg daily -On losartan 50 mg daily -Atorvastatin 40 mg daily #Benign prostatic hyperplasia #History of TURP procedure -Resume Flomax 0.4 mg daily Case discussed with my attending Dr. Sandra Graff MD PGY-1 Disposition: Telemetry Fluids: None Feeding: Cardiac diet Thrombo prophylaxis: Heparin Gastric Ulcer prophylaxis: Not indicated CODE STATUS: DNR Attending Provider Attestation/Addendum I reviewed labs, imaging, EKG, home medications and prior available records. Face to face evaluation was performed by me. I have personally examined the patient and discussed assessment and plan with the IM team. I reviewed the resident note and agree with the plan with exceptions as below. CHF exacerbation, unknown EF Bilateral pneumonia, bibasilar, organism unknown CAD status post stenting Status post AICD Type 2 diabetes mellitus History of AV replacement History of bladder cancer Started IV diuresis Ordered IR guided pleurocentesis given the pleural effusion. Status post removal of 1.9 L of exudative fluid Escalated antibiotics to Vanco cefepime given the leukocytosis and borderline hypotension Ordered CTA of the chest given the persistent leukocytosis and to rule out loculated effusion Ordered peripheral smear: Ordered ultrasound of the lower extremities to rule out DVT: Showed no DVT Ordered echocardiogram showed preserved EF of 60 to 65% DVT prophylaxis with subcutaneous heparin Consulted cardiology
[2024-07-26] MEDS: LORazepam 0.5 MG TABLET 1 MG PO (13:09)
[2024-07-26] MEDS: ATORVASTATIN CALCIUM 20 MG TABLET 40 MG PO (20:05)
[2024-07-26] MEDS: guaiFENesin/DM TABLET 1 EACH PO (20:05)
[2024-07-27] VITALS (11 sets, daily range): BP systolic 110–138; BP diastolic 51–72; PULSE 68–118; RESP 13–95; TEMP 36.1–36.6; O2SAT 93–99; BMI 29.6
[2024-07-27] MEDS: HEPARIN SOD INJ 5000 UNIT/ML VIAL SC ×3 (05:15→20:12)
[2024-07-27] MEDS: BUMETANIDE INJ 0.25 MG/ML VIAL 4 ML 2 MG IVP ×2 (05:15→17:48)
[2024-07-27 05:59] LABS: Basophils # (Auto) 0.1 Thou/mm3 (0.0-0.2); Basophils % (Auto) 0 % (0-2.5); Eosinophils # (Auto) 0.8 Thou/mm3 (0.0-0.5); Eosinophils % (Auto) 3 % (0-10); Hemoglobin 9.1 g/dL (13.5-16.0); Immature Granulocytes % (Auto) 3 % (0-0); Immature Granulocytes Auto 1.09 Thou/mm3 (0.00-0.00); Lymphocytes # (Auto) 1.9 Thou/mm3 (1.0-4.8); Lymphocytes % (Auto) 6 % (10-50); Mean Corpuscular HGB Conc 31.4 g/dl (31.0-37.0); Mean Corpuscular Hemoglobin 27.4 pg (25.0-35.0); Mean Corpuscular Volume 87 fL (80-100); Monocytes # (Auto) 2.6 Thou/mm3 (0.0-0.8); Monocytes % (Auto) 8 % (0-12); Neutrophils # (Auto) 25.7 Thou/mm3 (1.8-7.7); Neutrophils % (Auto) 80 % (37-80); Nucleated Red Blood Cell # 0.02 Thou/mm3 (0.00-0.00); Nucleated Red Blood Cell % 0 /100 WBC (0); Platelet Count 321 Thou/mm3 (140-440); RDW Standard Deviation 48.7 fL (35.1-43.9); Red Blood Count 3.32 Miln/mm3 (4.50-5.90); White Blood Count 32.2 Thou/mm3 (3.8-10.6)
[2024-07-27 06:25] LABS: Alanine Aminotransferase 45 U/L (10-49); Albumin, Serum 3.5 gm/dL (3.4-4.8); Albumin/Globulin Ratio 1.5 (1.2-2.2); Alkaline Phosphatase 126 U/L (46-116); Anion Gap 8 (7-16); Aspartate Amino Transferase 30 U/L (0-34); BUN/Creatinine Ratio 25 Ratio (12-20); Bilirubin,Total 0.4 mg/dL (0.3-1.2); Blood Urea Nitrogen 32 mg/dL (9-23); Calcium 9.5 mg/dL (8.3-10.6); Calcium (Corrected) 9.9 mg/dL (8.5-10.1); Carbon Dioxide 32.7 mMol/L (20.0-31.0); Chloride 93 mMol/L (98-107); Creatinine (Component) 1.3 mg/dL (0.6-1.3); Estimated Creatinine Clearance 44.6 mL/min (>60); Globulin 2.4 gm/dL (2.3-3.5); Glucose 145 mg/dL (74-106); Magnesium 2.3 mg/dL (1.6-2.6); Osmolality,Calculated 278 (275-295); Phosphorous 4.5 mg/dL (2.4-5.1); Potassium 4.4 mMol/L (3.4-5.1); Sodium 134 mMol/L (136-145); Total Protein 5.9 gm/dL (5.7-8.2); eGFR 53 See Note
[2024-07-27] MEDS: ASPIRIN EC 81 MG TABEC PO (08:08)
[2024-07-27] MEDS: TAMSULOSIN HCL 0.4 MG CAPSULE PO (08:08)
[2024-07-27] MEDS: LOSARTAN POTASSIUM 25 MG TABLET 50 MG PO (08:08)
[2024-07-27] MEDS: CEFEPIME INJ 1 GM in SODIUM CHLORIDE 0.9% 50 ML IV ×2 (08:09→20:12)
[2024-07-27] MEDS: VANCOMYCIN/NS 750 MG IVPB 750 MG/150 ML BAG 120 MG IV (09:49)
[2024-07-27] MEDS: guaiFENesin/DM TABLET 1 EACH PO ×2 (09:58→18:29)
[2024-07-27] MEDS: HYDROcodone/APAP 5/325 TABLET 1 TAB PO ×2 (11:05→20:12)
--- NOTE | 2024-07-27 13:11 | PD.RESPRO ---
Documentation for date of: 07/27/24 Subjective Subjective Interval history: Patient seen at bedside today. He is sitting upright in a chair on around 3 L via nasal cannula with O2 sats of 95. Explained to the patient that the likelihood of malignancy remains high and we are still pending results of the cell cytology. Patient was scheduled to have outpatient follow-up with [facility] for potential PET/CT due to his history of bladder cancer and prostate cancer. I explained to the patient that our goal will be for tomorrow to de-escalate antibiotic therapy to p.o. antibiotics and to discharge him on 2 L via nasal cannula and for him to follow-up with [facility] for him to have long-term management/planning for his health. Exam Vital Signs Temp Pulse Resp BP Pulse Ox O2 Del Method O2 Flow Rate 97.1 F 99 15 138/72 H 94 L Nasal Cannula 4 07/27/24 12:00 07/27/24 12:00 07/27/24 12:00 07/27/24 12:00 07/27/24 12:00 07/27/24 12:00 07/27/24 12:00 FiO2 96 07/27/24 07:00 Narrative Exam Physical Exam GENERAL: NAD, AAOx3, hard of hearing HEENT: Moist mucosa. Eyes open, symmetrical, & clear CARDIO: Heart RRR, no obvious murmurs PULM: No noted coughing/dyspnea CTA B/L, no R/W/R GI: Abdomen soft, nondistended, no pain on palpation. BSx4 SKIN/MSK/EXT: +2 pitting lower extremity edema, no pain on palpation. Pedal pulses present B/L NEURO: AAOx3, no focal neuro deficits, able to move all 4 extremities Objective Labs 07/28/24 05:05 07/28/24 05:05 Labs: Laboratory Results - last 24 hr 07/27/24 04:38 WBC 32.2 H RBC 3.32 L Hgb 9.1 L Hct 29.0 L MCV 87 MCH 27.4 MCHC 31.4 RDW Std Deviation 48.7 H Plt Count 321 D Neut % (Auto) 80 Lymph % (Auto) 6 L [place] % (Auto) 8 Eos % (Auto) 3 Baso % (Auto) 0 Neut # (Auto) 25.7 H Lymph # (Auto) 1.9 [place] # (Auto) 2.6 H Eos # (Auto) 0.8 H Baso # (Auto) 0.1 Immature Gran # (Auto) 1.09 H Absolute Nucleated RBC 0.02 H Immature Gran % 3 H Nucleated RBC % 0 Sodium 134 L Potassium 4.4 D Chloride 93 L Carbon Dioxide 32.7 H Anion Gap 8 BUN 32 H Creatinine 1.3 Estim Creat Clear Calc 44.6 L eGFR 53 L BUN/Creatinine Ratio 25 H Glucose 145 H Calculated Osmolality 278 Calcium 9.5 Corrected Calcium 9.9 Phosphorus 4.5 Magnesium 2.3 Total Bilirubin 0.4 AST 30 ALT 45 Alkaline Phosphatase 126 H Total Protein 5.9 Albumin 3.5 Globulin 2.4 Albumin/Globulin Ratio 1.5 ABG Interpretation ABG results: 07/24/24 21:16 ABG pH 7.44 ABG pCO2 55 H ABG pO2 82 L ABG HCO3 37 H ABG O2 Saturation 97 ABG Base Excess 11 H Quality Measures Quality Measures none Advance care planning discussed with:: patient Assessment & Plan Assessment Current Active Medications: Generic Name Dose Route Start Last Admin Trade Name Freq PRN Reason Stop Dose Admin Acetaminophen 650 mg 07/24/24 17:23 07/25/24 01:33 Acetaminophen 325 Mg Tablet PO 08/23/24 17:22 650 mg Q6H PRN Administration Fever >100.5 Acetaminophen 650 mg 07/24/24 17:23 Acetaminophen 325 Mg Tablet PO 08/23/24 17:22 Q6H PRN PAIN SCALE 1-3 (mild Hydrocodone Bitart/Acetaminophen 1 tab 07/25/24 04:21 07/27/24 11:05 Hydrocodone/Apap 5/325 Tablet PO 07/30/24 04:20 1 tab Q6HR PRN Administration PAIN SCALE 4-10(Mod-Sev Aspirin 81 mg 07/24/24 18:15 07/27/24 08:08 Aspirin Ec 81 Mg Tabec PO 08/23/24 18:14 81 mg QDAY VERITO Administration Atorvastatin Calcium 40 mg 07/24/24 21:00 07/26/24 20:05 Atorvastatin Calcium 20 Mg Tablet PO 08/23/24 20:59 40 mg HS VERITO Administration Bumetanide 2 mg 07/24/24 18:00 07/27/24 05:15 Bumetanide Inj 0.25 Mg/Ml Vial 4 Ml IVP 08/23/24 17:59 2 mg BIDD VERITO Administration Docusate Sodium 100 mg 07/25/24 09:00 07/27/24 08:19 Docusate Sod 100 Mg Capsule PO 08/24/24 08:59 Not Given QDAY VERITO Protocol Guaifenesin/Dextromethorphan 1 each 07/26/24 18:02 07/27/24 09:58 Guaifenesin/Dm Tablet PO 08/25/24 18:01 1 each Q4HR PRN Administration COUGH Heparin Sodium (Porcine) 5,000 unit 07/24/24 22:00 07/27/24 05:15 Heparin Sod Inj 5000 Unit/Ml Vial SC 08/07/24 21:59 5,000 unit Q8HR VERITO Administration Cefepime HCl 1 gm/ Sodium 50 mls @ 100 mls/hr 07/25/24 21:00 07/27/24 08:09 Chloride IV 08/01/24 11:38 100 mls/hr Q12HR VERITO Administration Vancomycin/Sodium Chloride 750 mg in 150 mls @ 120 mls/hr 07/27/24 10:00 07/27/24 09:49 Vancomycin/Ns 750 Mg Ivpb IV 08/03/24 09:59 120 mls/hr DAILY@1000 VERITO Administration Losartan Potassium 50 mg 07/24/24 18:45 07/27/24 08:08 Losartan Potassium 25 Mg Tablet PO 08/23/24 18:44 50 mg QDAY VERITO Administration Ondansetron HCl 4 mg 07/24/24 17:23 Ondansetron Inj 2 Mg/Ml Inj 2 Ml IV 08/23/24 17:22 Q6H PRN NAUSEA OR VOMITING Protocol Pharmacy Consult 1 each 07/25/24 11:45 Vancomycin Pharmacy To Dose 1 Each Each IV 08/24/24 11:44 QDAY PRN CONSULT Tamsulosin HCl 0.4 mg 07/24/24 17:45 07/27/24 08:08 Tamsulosin Hcl 0.4 Mg Capsule PO 08/23/24 17:44 0.4 mg QDAY VERITO Administration Plan 89-year-old former smoker male with past medical history of hypertension, congestive heart failure, hyperlipidemia who presented to the ED from Dr. Noyola's office due to shortness of breath. Patient will be admitted due to acute hypoxic respiratory failure secondary to acute decompensated heart failure versus bilateral pneumonia. #Acute hypoxic respiratory failure #Left-sided pleural effusion # HFpEF 60-65% #? Pulmonary embolism-rule out Patient has been having progressive shortness of breath for the past few days, patient endorses orthopnea BNP within normal limits, troponins negative Patient has extensive cardiac history including coronary artery disease with stent placement, congestive heart failure, hypertension, pacemaker placement, valve replacement Chest x-ray was done showed left-sided pleural effusion D-dimer was found to be more than 3820, CTA was ordered however patient was unable to lay flat so study was unable to be done, will likely need some diuresis and later perform study Ultrasound left side of the chest was done, ultrasound of the lower extremities was done negative for DVT Echo showed Normal LV size and function. Mild LVH. Estimated EF 60-65%. Normal RV size and function. Aortic bioprothetic valve mean gradient 4mmHg, vmax 1.5m/s. Trace TR. Large pleural effusion present. Patient underwent left-sided thoracentesis approximately 2 L of fluid removed. Postprocedure chest x-ray does not show much improvement will place patient on BiPAP at this time. -Bumex 2 mg IV twice daily -Strict ins and outs -Fluid restriction 1200 mL -Daily weights -BiPAP ?Pleural fluid culture still pending, continue with antibiotic therapy -Keep potassium above 4, magnesium above 2 -CTA chest negative for pulmonary emboli -Cardiology Dr. Noyola consulted and appreciate recommendations #Sepsis secondary to bilateral pneumonia #Community-acquired pneumonia Admission patient had leukocytosis, tachycardia, tachypnea 3 out of 4 SIRS criteria with endorgan damage lung Patient had a cold a few weeks ago and then a few days ago started developing a cough with shortness of breath has been progressing till arrival here in the ED. Sepsis 30 cc/kg not given due to likely CHF exacerbation Lactic acid normal, Pro-Brandt 1.02 Blood cultures negative in 24 hours, urine culture is negative -On vancomycin, will de-escalate once pleural fluid cultures obtained -On cefepime -Sputum cultures pending #Hypertension #Hyperlipidemia #CAD status post stents #Status post pacemaker #History of valve replacement Patient takes simvastatin 40 mg and baby aspirin -Resumed aspirin 81 mg daily -On losartan 50 mg daily -Atorvastatin 40 mg daily #Benign prostatic hyperplasia #History of TURP procedure -Resume Flomax 0.4 mg daily Case discussed with my attending Dr. Sandra Constantino M.D. PGY-3 Disposition: Telemetry Fluids: None Feeding: Cardiac diet Thrombo prophylaxis: Heparin Gastric Ulcer prophylaxis: Not indicated CODE STATUS: DNR Attending Provider Attestation/Addendum I reviewed labs, imaging, EKG, home medications and prior available records. Face to face evaluation was performed by me. I have personally examined the patient and discussed assessment and plan with the IM team. I reviewed the resident note and agree with the plan with exceptions as below. CHF exacerbation, unknown EF Bilateral pneumonia, bibasilar, organism unknown CAD status post stenting Status post AICD Type 2 diabetes mellitus History of AV replacement History of bladder cancer Continue IV diuresis Ordered IR guided pleurocentesis given the pleural effusion. Status post removal of 1.9 L of exudative fluid Escalated antibiotics to Vanco cefepime given the leukocytosis and borderline hypotension Ordered CTA of the chest given the persistent leukocytosis and to rule out loculated effusion: Showed extensive bilateral pneumonia Ordered peripheral smear Ordered ultrasound of the lower extremities to rule out DVT: Showed no DVT Ordered echocardiogram showed preserved EF of 60 to 65% DVT prophylaxis with subcutaneous heparin Consulted cardiology
--- NOTE | 2024-07-27 17:44 | ESPR_ITS ---
RE: SANDEE BERNAL : 1935 DATE OF SERVICE: 07/26/2024 I counseled the patient on 07/27/2024. SUBJECTIVE: The patient is an 89-year-old male with known history of CAD, status post bypass surgery and stent placement, aortic valve replacement, TAVR and recent abdominal surgery and complicated ventral hernia repair, admitted to the hospital with acute shortness of breath and large left pleural effusion initially, even infection, pneumonia on 07/24/2024. The patient has persistent white count elevation. CT scan of the chest repeated showed extensive bilateral pneumonia as well. Pleural effusion was drained more than _ yesterday on 07/25. Clinically improved a lot, but still having a lot of back pain, shortness of breath, no chest pain, however. ALLERGIES: NONE. MEDICATIONS: He continues to be receiving IV antibiotic therapy. Broad spectrum antibiotics have been given. Atorvastatin and bumetanide 2 mg IV b.i.d. for heart failure along with vancomycin and aggressive antibody therapy. Continued on losartan as well. He is still very disappointed. He does not want to stay here or go home. However, I strongly advised him to stay in the hospital. OBJECTIVE: Vital Signs: Shows blood pressure 130/70, pulse 99, respiratory rate 16, temperature normal, and saturating 94% nasal cannula 4 L. HEENT: Head is atraumatic. Neck: Supple. No JVD . Chest: Clear. Lungs: Decreased breath sounds in both bases. Heart: S1 and S2, regular. No gallops. A 1/6 systolic murmur at apex. Abdomen: Thin and soft. Extremities: Mild edema of both feet. Genitourinary and Rectal: Not performed. Central Nervous System: Normal. IMPRESSION: 1. Bilateral extensive pneumonia with hypoxic respiratory failure. 2. Congestive heart failure with further ejection fraction. 3. Status post aortic valve replacement, transcatheter aortic valve replacement procedure. 4. Status post coronary artery bypass graft and stent placement, stable. 5. Hypertension. 6. Chronic back pain. RECOMMENDATIONS: Continue IV antibiotic therapy and oxygen supplement. I do not see any malignancy in the lungs, but patient has a history of prostatic carcinoma, surgical intervention and also ventral hernia repair, complicated stay in the hospital. Recommended to continue to monitor the patient. IV diuretic will be continued. Antibiotics continue. Recommended the patient will need to stay at least 3-4 more days before discharge. The patient wants to move to [place] after they discharged home. I spoke to the daughter as well. DT: 14:32:49 TT: 17:38:00 Ref: [id number] - TID: [id number] MTDD
[2024-07-27] MEDS: ATORVASTATIN CALCIUM 20 MG TABLET 40 MG PO (20:12)
[2024-07-28] VITALS (10 sets, daily range): BP systolic 102–131; BP diastolic 51–74; PULSE 62–112; RESP 12–95; TEMP 36–36.7; O2SAT 95–100; BMI 29.9
[2024-07-28] MEDS: guaiFENesin/DM TABLET 1 EACH PO ×2 (02:15→18:40)
[2024-07-28] MEDS: HYDROcodone/APAP 5/325 TABLET 1 TAB PO ×2 (02:18→14:28)
[2024-07-28] MEDS: HEPARIN SOD INJ 5000 UNIT/ML VIAL SC ×2 (05:25→21:46)
[2024-07-28] MEDS: BUMETANIDE INJ 0.25 MG/ML VIAL 4 ML 2 MG IVP ×2 (05:26→17:40)
[2024-07-28 06:15] LABS: Basophils # (Auto) 0.1 Thou/mm3 (0.0-0.2); Basophils % (Auto) 0 % (0-2.5); Eosinophils % (Auto) 3 % (0-10); Mean Corpuscular Volume 85 fL (80-100); Neutrophils % (Auto) 80 % (37-80); Nucleated Red Blood Cell % 0 /100 WBC (0)
[2024-07-28 06:17] LABS: Eosinophils # (Auto) 0.9 Thou/mm3 (0.0-0.5); Hematocrit 27.9 % (41.0-53.0); Hemoglobin 8.9 g/dL (13.5-16.0); Immature Granulocytes % (Auto) 4 % (0-0); Immature Granulocytes Auto 1.15 Thou/mm3 (0.00-0.00); Lymphocytes # (Auto) 1.9 Thou/mm3 (1.0-4.8); Lymphocytes % (Auto) 6 % (10-50); Mean Corpuscular HGB Conc 31.9 g/dl (31.0-37.0); Monocytes # (Auto) 2.4 Thou/mm3 (0.0-0.8); Monocytes % (Auto) 7 % (0-12); Platelet Count 322 Thou/mm3 (140-440); RDW Standard Deviation 46.6 fL (35.1-43.9); White Blood Count 32.5 Thou/mm3 (3.8-10.6)
[2024-07-28 06:37] LABS: Alanine Aminotransferase 40 U/L (10-49); Albumin, Serum 3.1 gm/dL (3.4-4.8); Albumin/Globulin Ratio 1.1 (1.2-2.2); Alkaline Phosphatase 131 U/L (46-116); Anion Gap 6 (7-16); Aspartate Amino Transferase 28 U/L (0-34); BUN/Creatinine Ratio 29 Ratio (12-20); Bilirubin,Total 0.4 mg/dL (0.3-1.2); Blood Urea Nitrogen 32 mg/dL (9-23); Calcium 9.6 mg/dL (8.3-10.6); Calcium (Corrected) 10.3 mg/dL (8.5-10.1); Carbon Dioxide 32.6 mMol/L (20.0-31.0); Chloride 94 mMol/L (98-107); Creatinine (Component) 1.1 mg/dL (0.6-1.3); Globulin 2.7 gm/dL (2.3-3.5); Glucose 140 mg/dL (74-106); Magnesium 2.2 mg/dL (1.6-2.6); Osmolality,Calculated 275 (275-295); Phosphorous 3.9 mg/dL (2.4-5.1); Potassium 3.8 mMol/L (3.4-5.1); Sodium 133 mMol/L (136-145); Total Protein 5.8 gm/dL (5.7-8.2); eGFR > 60 See Note
[2024-07-28] MEDS: CEFEPIME INJ 1 GM in SODIUM CHLORIDE 0.9% 50 ML IV (08:21)
[2024-07-28] MEDS: TAMSULOSIN HCL 0.4 MG CAPSULE PO (08:22)
[2024-07-28] MEDS: ASPIRIN EC 81 MG TABEC PO (08:22)
[2024-07-28] MEDS: POTASSIUM CHLORIDE 10% 20 MEQ/15 ML UDC 40 MEQ PO (08:22)
[2024-07-28] MEDS: LOSARTAN POTASSIUM 25 MG TABLET 50 MG PO (08:22)
--- NOTE | 2024-07-28 09:44 | XR_ITS ---
Examination: Ultrasound right hemithorax Ultrasound left hemithorax Exam date and time: July 28, 2024 1356 hours INDICATIONS: Shortness of breath this week, bilateral pleural effusions on CT examination chest July 26, 2024 Technique an findings: Grayscale sonographic images right and left hemithoraces Minimal bilateral pleural effusions IMPRESSION: Minimal bilateral pleural effusions
[2024-07-28 09:56] LABS: Vancomycin,Trough 8.1 mcg/mL (5.0-10.0)
--- NOTE | 2024-07-28 10:28 | ESPR_ITS ---
Subjective Subjective Interval history: asked to see for hypoxia with some degree of eosinophilia. 89 yoa, dnr . cocci pending. Exam Vital Signs Temp Pulse Resp BP Pulse Ox O2 Del Method O2 Flow Rate 96.8 F 62 20 117/63 97 Nasal Cannula 3 07/28/24 08:00 07/28/24 08:22 07/28/24 08:00 07/28/24 08:22 07/28/24 08:00 07/28/24 08:00 07/28/24 08:00 FiO2 96 07/28/24 04:00 Narrative Exam no distress. on O2. very [place]. spoke with daughter on phone she will be coming to see him. no water features at home. has a dog . some time ago it seems Objective - Internal Medicine Labs 07/28/24 05:05 07/28/24 05:05 Labs: Laboratory Results - last 24 hr 07/28/24 07/28/24 05:05 09:15 WBC 32.5 H RBC 3.30 L Hgb 8.9 L Hct 27.9 L MCV 85 MCH 27.0 MCHC 31.9 RDW Std Deviation 46.6 H Plt Count 322 Neut % (Auto) 80 Lymph % (Auto) 6 L [place] % (Auto) 7 Eos % (Auto) 3 Baso % (Auto) 0 Neut # (Auto) 26.0 H Lymph # (Auto) 1.9 [place] # (Auto) 2.4 H Eos # (Auto) 0.9 H Baso # (Auto) 0.1 Immature Gran # (Auto) 1.15 H Absolute Nucleated RBC 0.00 Immature Gran % 4 H Nucleated RBC % 0 Sodium 133 L Potassium 3.8 D Chloride 94 L Carbon Dioxide 32.6 H Anion Gap 6 L BUN 32 H Creatinine 1.1 Estim Creat Clear Calc 53.0 L eGFR > 60 BUN/Creatinine Ratio 29 H Glucose 140 H Calculated Osmolality 275 Calcium 9.6 Corrected Calcium 10.3 H Phosphorus 3.9 Magnesium 2.2 Total Bilirubin 0.4 AST 28 ALT 40 Alkaline Phosphatase 131 H Total Protein 5.8 Albumin 3.1 L Globulin 2.7 Albumin/Globulin Ratio 1.1 L Vancomycin Trough 8.1 ABG Interpretation ABG results: 07/24/24 21:16 ABG pH 7.44 ABG pCO2 55 H ABG pO2 82 L ABG HCO3 37 H ABG O2 Saturation 97 ABG Base Excess 11 H Assessment & Plan A&P Narrative pneumonia with normal bnp on arrival, hld hx of skin CA and prostate ca on biopsy tissue per daughter in [place]. added screen for legionella and rx for that, note that pt is dnr. so heed the guidance. will check in again on sun. note that this could also be CA related ok to screen for other things. is going to live with daughter moving forward. 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 so chest issue may also be metastatic Time Spent With Patient Time: Total time spent is greater than 50% in coordination of care (as documented) at patient's floor/unit and/or counseling patient:
--- NOTE | 2024-07-28 10:31 | ESPR_ITS ---
Documentation for date of: 07/28/24 Subjective Subjective Interval history: Patient seen today at the bedside found awake, alert, orientedx3. No overnight events reported. Still reporting shortness of breath, however patients oxygen requirements have gone down compared to previous examinations currently on 2L NC and chest pain on palpation. Infectious disease, Dr. Davis consulted, adjusted antibiotic therapy to levofloxacin, ordered RSV, Flu/Covid/legionella. Patient will have US for evaluation of reaccumulation of pleural fluid. Spoke to daughter over the phone, updated on care plan. Exam Vital Signs Temp Pulse Resp BP Pulse Ox O2 Del Method O2 Flow Rate 96.8 F 62 20 117/63 97 Nasal Cannula 3 07/28/24 08:00 07/28/24 08:22 07/28/24 08:00 07/28/24 08:22 07/28/24 08:00 07/28/24 08:00 07/28/24 08:00 FiO2 96 07/28/24 04:00 Narrative Exam Physical Exam GENERAL: NAD, AAOx3, hard of hearing HEENT: Moist mucosa. Eyes open, symmetrical, & clear CARDIO: Heart RRR, no obvious murmurs PULM: No noted coughing, +dyspnea, decreased BS on the left GI: Abdomen soft, nondistended, no pain on palpation. BSx4 SKIN/MSK/EXT: +2 pitting lower extremity edema, no pain on palpation. Pedal pulses present B/L NEURO: AAOx3, no focal neuro deficits, able to move all 4 extremities Objective Labs 07/28/24 05:05 07/28/24 05:05 Labs: Laboratory Results - last 24 hr 07/28/24 07/28/24 05:05 09:15 WBC 32.5 H RBC 3.30 L Hgb 8.9 L Hct 27.9 L MCV 85 MCH 27.0 MCHC 31.9 RDW Std Deviation 46.6 H Plt Count 322 Neut % (Auto) 80 Lymph % (Auto) 6 L [place] % (Auto) 7 Eos % (Auto) 3 Baso % (Auto) 0 Neut # (Auto) 26.0 H Lymph # (Auto) 1.9 [place] # (Auto) 2.4 H Eos # (Auto) 0.9 H Baso # (Auto) 0.1 Immature Gran # (Auto) 1.15 H Absolute Nucleated RBC 0.00 Immature Gran % 4 H Nucleated RBC % 0 Sodium 133 L Potassium 3.8 D Chloride 94 L Carbon Dioxide 32.6 H Anion Gap 6 L BUN 32 H Creatinine 1.1 Estim Creat Clear Calc 53.0 L eGFR > 60 BUN/Creatinine Ratio 29 H Glucose 140 H Calculated Osmolality 275 Calcium 9.6 Corrected Calcium 10.3 H Phosphorus 3.9 Magnesium 2.2 Total Bilirubin 0.4 AST 28 ALT 40 Alkaline Phosphatase 131 H Total Protein 5.8 Albumin 3.1 L Globulin 2.7 Albumin/Globulin Ratio 1.1 L Vancomycin Trough 8.1 ABG Interpretation ABG results: 07/24/24 21:16 ABG pH 7.44 ABG pCO2 55 H ABG pO2 82 L ABG HCO3 37 H ABG O2 Saturation 97 ABG Base Excess 11 H Quality Measures Quality Measures none Advance care planning discussed with:: patient and child Assessment & Plan Assessment Current Active Medications: Generic Name Dose Route Start Last Admin Trade Name Freq PRN Reason Stop Dose Admin Acetaminophen 650 mg 07/24/24 17:23 07/25/24 01:33 Acetaminophen 325 Mg Tablet PO 08/23/24 17:22 650 mg Q6H PRN Administration Fever >100.5 Acetaminophen 650 mg 07/24/24 17:23 Acetaminophen 325 Mg Tablet PO 08/23/24 17:22 Q6H PRN PAIN SCALE 1-3 (mild Hydrocodone Bitart/Acetaminophen 1 tab 07/25/24 04:21 07/28/24 02:18 Hydrocodone/Apap 5/325 Tablet PO 07/30/24 04:20 1 tab Q6HR PRN Administration PAIN SCALE 4-10(Mod-Sev Aspirin 81 mg 07/24/24 18:15 07/28/24 08:22 Aspirin Ec 81 Mg Tabec PO 08/23/24 18:14 81 mg QDAY VERITO Administration Atorvastatin Calcium 40 mg 07/24/24 21:00 07/27/24 20:12 Atorvastatin Calcium 20 Mg Tablet PO 08/23/24 20:59 40 mg HS VERITO Administration Benzonatate 200 mg 07/28/24 09:45 Benzonatate 100 Mg Capsule PO 08/27/24 09:44 Q8HR PRN COUGH Protocol Bumetanide 2 mg 07/24/24 18:00 07/28/24 05:26 Bumetanide Inj 0.25 Mg/Ml Vial 4 Ml IVP 08/23/24 17:59 2 mg BIDD VERITO Administration Docusate Sodium 100 mg 07/25/24 09:00 07/28/24 08:53 Docusate Sod 100 Mg Capsule PO 08/24/24 08:59 Not Given QDAY [facility] Protocol Guaifenesin/Dextromethorphan 1 each 07/26/24 18:02 07/28/24 02:15 Guaifenesin/Dm Tablet PO 08/25/24 18:01 1 each Q4HR PRN Administration COUGH Heparin Sodium (Porcine) 5,000 unit 07/24/24 22:00 07/28/24 05:25 Heparin Sod Inj 5000 Unit/Ml Vial SC 08/07/24 21:59 5,000 unit Q8HR VERITO Administration Vancomycin HCl 250 mls @ 120 mls/hr 07/28/24 10:00 Vancomycin/Water 1250 Mg Ivpb IV 08/04/24 09:59 Q24H VERITO Loratadine 10 mg 07/28/24 10:30 Loratadine 10 Mg Tablet PO 08/27/24 10:29 QDAY VERITO Losartan Potassium 50 mg 07/24/24 18:45 07/28/24 08:22 Losartan Potassium 25 Mg Tablet PO 08/23/24 18:44 50 mg QDAY VERITO Administration Ondansetron HCl 4 mg 07/24/24 17:23 Ondansetron Inj 2 Mg/Ml Inj 2 Ml IV 08/23/24 17:22 Q6H PRN NAUSEA OR VOMITING Protocol Pharmacy Consult 1 each 07/25/24 11:45 Vancomycin Pharmacy To Dose 1 Each Each IV 08/24/24 11:44 QDAY PRN CONSULT Tamsulosin HCl 0.4 mg 07/24/24 17:45 07/28/24 08:22 Tamsulosin Hcl 0.4 Mg Capsule PO 08/23/24 17:44 0.4 mg QDAY VERITO Administration Plan 89-year-old former smoker male with past medical history of hypertension, congestive heart failure, hyperlipidemia who presented to the ED from Dr. Noyola's office due to shortness of breath. Patient will be admitted due to acute hypoxic respiratory failure secondary to acute decompensated heart failure versus bilateral pneumonia. #Acute hypoxic respiratory failure #Left-sided pleural effusion # HFpEF 60-65% #Pulmonary embolism-ruled out Patient has been having progressive shortness of breath for the past few days, patient endorses orthopnea BNP within normal limits, troponins negative Patient has extensive cardiac history including coronary artery disease with stent placement, congestive heart failure, hypertension, pacemaker placement, valve replacement Chest x-ray was done showed left-sided pleural effusion D-dimer was found to be more than 3820, CTA was ordered however patient was unable to lay flat so study was unable to be done, will likely need some diuresis and later perform study Ultrasound left side of the chest was done, ultrasound of the lower extremities was done negative for DVT Echo showed Normal LV size and function. Mild LVH. Estimated EF 60-65%. Normal RV size and function. Aortic bioprothetic valve mean gradient 4mmHg, vmax 1.5m/s. Trace TR. Large pleural effusion present. Patient underwent left-sided thoracentesis approximately 2 L of fluid removed. Postprocedure chest x-ray does not show much improvement will place patient on BiPAP at this time. CTA chest negative for pulmonary emboli -Bumex 2 mg IV twice daily -f/u US thoracentesis for re-accumulation -Strict ins and outs -Fluid restriction 1200 mL -Daily weights -BiPAP ?Pleural fluid culture still pending, continue with antibiotic therapy -Keep potassium above 4, magnesium above 2 -Cardiology Dr. Noyola consulted and appreciate recommendations #Sepsis secondary to bilateral pneumonia #Community-acquired pneumonia Admission patient had leukocytosis, tachycardia, tachypnea 3 out of 4 SIRS criteria with endorgan damage lung Patient had a cold a few weeks ago and then a few days ago started developing a cough with shortness of breath has been progressing till arrival here in the ED. Sepsis 30 cc/kg not given due to likely CHF exacerbation Lactic acid normal, Pro-Brandt 1.02 Blood cultures negative in 24 hours, urine culture is negative -Vancomycin and cefepime discontinued -started on levofloxacin by ID -f/u legionella, RSV, flu/covid -Sputum cultures pending -ID, Dr. Davis consulted, appreciate recommendations #Hypertension #Hyperlipidemia #CAD status post stents #Status post pacemaker #History of valve replacement Patient takes simvastatin 40 mg and baby aspirin -Resumed aspirin 81 mg daily -On losartan 50 mg daily -Atorvastatin 40 mg daily #Benign prostatic hyperplasia #History of TURP procedure -Resume Flomax 0.4 mg daily Case discussed with my senior Dr. Bocanegra PGY-[address] Sandra Graff MD PGY-1 Disposition: Telemetry Fluids: None Feeding: Cardiac diet Thrombo prophylaxis: Heparin Gastric Ulcer prophylaxis: Not indicated CODE STATUS: DNR Attending Provider Attestation/Addendum I reviewed labs, imaging, EKG, home medications and prior available records. Face to face evaluation was performed by me. I have personally examined the patient and discussed assessment and plan with the IM team. I reviewed the resident note and agree with the plan with exceptions as below. CHF exacerbation, unknown EF Bilateral pneumonia, bibasilar, organism unknown CAD status post stenting Status post AICD Type 2 diabetes mellitus History of AV replacement History of bladder cancer Continue IV diuresis Ordered IR guided pleurocentesis given the pleural effusion. Status post removal of 1.9 L of exudative fluid Ordered CTA of the chest given the persistent leukocytosis and to rule out loculated effusion: Showed extensive bilateral pneumonia Sent cocci IgM: Positive. Started fluconazole. Continue ceftriaxone Ordered peripheral smear: Pending Ordered ultrasound of the lower extremities to rule out DVT: Showed no DVT Ordered echocardiogram showed preserved EF of 60 to 65% DVT prophylaxis with subcutaneous heparin Consulted cardiology PT evaluation
[2024-07-28] MEDS: LEVOFLOXACIN/D5W 500 MG IVPB 500 MG/100 ML BAG 100 MG IV (11:38)
[2024-07-28] MEDS: lorataDINE 10 MG TABLET PO (11:38)
[2024-07-28 12:19] LABS: COVID-19 Antigen (In-House) Negative (Negative); Respiratory Syncytial Virus Ag Negative (Negative)
[2024-07-28 13:27] LABS: Cocci Serology, IgM Positive (Negative)
[2024-07-28 13:28] LABS: Cocid Sro, CF/ID (UCD) NO CHG* See Sep Rpt
--- NOTE | 2024-07-28 13:43 | ESPR_ITS ---
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 Will continue to monitor the patient closely discussed with the daughter who lives in [place] he ultimately wants to move to [place] but patient is not stable to be discharged at this point evaluate the patient all essential complaints are noted reviewed by me agree with the treatment plan recommendation as documented by Dr. Coe PGY 2 Documentation for date of: 07/28/24 Subjective Subjective Interval history: Patient seen and assessed at bedside. Patient resting comfortably in bed on 3 L nasal cannula. Patient states to be feeling very tired but is otherwise feeling about the same. Patient started on fluconazole for cocci. Spoke with daughter Desiree and gave her update regarding valley fever and treatment. Patient went for thoracentesis, but not enough fluid on imaging so procedure was canceled. Patient currently denying any chest pain or palpitations. Exam Vital Signs Temp Pulse Resp BP Pulse Ox O2 Del Method O2 Flow Rate 97.1 F 95 17 131/74 H 98 Nasal Cannula 3 07/28/24 12:00 07/28/24 12:00 07/28/24 12:00 07/28/24 12:00 07/28/24 12:00 07/28/24 12:00 07/28/24 12:00 FiO2 96 07/28/24 04:00 Narrative Exam GENERAL: Pleasant elderly male. NAD, AAOx3, hard of hearing CARDIO: Heart RRR, distant heart sounds. PULM: Chest clear to auscultation bilaterally anteriorly. No wheezing, rhonchi or rales. GI: Abdomen soft, nondistended, no pain on palpation. SKIN/MSK/EXT: +2 pitting lower extremity edema. Objective Labs 07/28/24 05:05 07/28/24 05:05 Labs: Laboratory Results - last 24 hr 07/28/24 07/28/24 07/28/24 05:05 09:15 10:32 WBC 32.5 H RBC 3.30 L Hgb 8.9 L Hct 27.9 L MCV 85 MCH 27.0 MCHC 31.9 RDW Std Deviation 46.6 H Plt Count 322 Neut % (Auto) 80 Lymph % (Auto) 6 L [place] % (Auto) 7 Eos % (Auto) 3 Baso % (Auto) 0 Neut # (Auto) 26.0 H Lymph # (Auto) 1.9 [place] # (Auto) 2.4 H Eos # (Auto) 0.9 H Baso # (Auto) 0.1 Immature Gran # (Auto) 1.15 H Absolute Nucleated RBC 0.00 Immature Gran % 4 H Nucleated RBC % 0 Sodium 133 L Potassium 3.8 D Chloride 94 L Carbon Dioxide 32.6 H Anion Gap 6 L BUN 32 H Creatinine 1.1 Estim Creat Clear Calc 53.0 L eGFR > 60 BUN/Creatinine Ratio 29 H Glucose 140 H Calculated Osmolality 275 Calcium 9.6 Corrected Calcium 10.3 H Phosphorus 3.9 Magnesium 2.2 Total Bilirubin 0.4 AST 28 ALT 40 Alkaline Phosphatase 131 H Total Protein 5.8 Albumin 3.1 L Globulin 2.7 Albumin/Globulin Ratio 1.1 L Vancomycin Trough 8.1 Coccidioides IgM Ab Positive A RSV Rapid SARS-CoV-2 Ag (Rapid) 07/28/24 10:40 WBC RBC Hgb Hct MCV MCH MCHC RDW Std Deviation Plt Count Neut % (Auto) Lymph % (Auto) [place] % (Auto) Eos % (Auto) Baso % (Auto) Neut # (Auto) Lymph # (Auto) [place] # (Auto) Eos # (Auto) Baso # (Auto) Immature Gran # (Auto) Absolute Nucleated RBC Immature Gran % Nucleated RBC % Sodium Potassium Chloride Carbon Dioxide Anion Gap BUN Creatinine Estim Creat Clear Calc eGFR BUN/Creatinine Ratio Glucose Calculated Osmolality Calcium Corrected Calcium Phosphorus Magnesium Total Bilirubin AST ALT Alkaline Phosphatase Total Protein Albumin Globulin Albumin/Globulin Ratio Vancomycin Trough Coccidioides IgM Ab RSV Rapid Negative SARS-CoV-2 Ag (Rapid) Negative ABG Interpretation ABG results: 07/24/24 21:16 ABG pH 7.44 ABG pCO2 55 H ABG pO2 82 L ABG HCO3 37 H ABG O2 Saturation 97 ABG Base Excess 11 H Quality Measures Quality Measures none Advance care planning discussed with:: patient and child Assessment & Plan Assessment Current Active Medications: Generic Name Dose Route Start Last Admin Trade Name Freq PRN Reason Stop Dose Admin Acetaminophen 650 mg 07/24/24 17:23 07/25/24 01:33 Acetaminophen 325 Mg Tablet PO 08/23/24 17:22 650 mg Q6H PRN Administration Fever >100.5 Acetaminophen 650 mg 07/24/24 17:23 Acetaminophen 325 Mg Tablet PO 08/23/24 17:22 Q6H PRN PAIN SCALE 1-3 (mild Hydrocodone Bitart/Acetaminophen 1 tab 07/25/24 04:21 07/28/24 02:18 Hydrocodone/Apap 5/325 Tablet PO 07/30/24 04:20 1 tab Q6HR PRN Administration PAIN SCALE 4-10(Mod-Sev Aspirin 81 mg 07/24/24 18:15 07/28/24 08:22 Aspirin Ec 81 Mg Tabec PO 08/23/24 18:14 81 mg QDAY VERITO Administration Atorvastatin Calcium 40 mg 07/24/24 21:00 07/27/24 20:12 Atorvastatin Calcium 20 Mg Tablet PO 08/23/24 20:59 40 mg HS VERITO Administration Benzonatate 200 mg 07/28/24 09:45 Benzonatate 100 Mg Capsule PO 08/27/24 09:44 Q8HR PRN COUGH Protocol Bumetanide 2 mg 07/24/24 18:00 07/28/24 05:26 Bumetanide Inj 0.25 Mg/Ml Vial 4 Ml IVP 08/23/24 17:59 2 mg BIDD VERITO Administration Docusate Sodium 100 mg 07/25/24 09:00 07/28/24 08:53 Docusate Sod 100 Mg Capsule PO 08/24/24 08:59 Not Given QDAY VERITO Protocol Guaifenesin/Dextromethorphan 1 each 07/26/24 18:02 07/28/24 02:15 Guaifenesin/Dm Tablet PO 08/25/24 18:01 1 each Q4HR PRN Administration COUGH Heparin Sodium (Porcine) 5,000 unit 07/24/24 22:00 07/28/24 05:25 Heparin Sod Inj 5000 Unit/Ml Vial SC 08/07/24 21:59 5,000 unit Q8HR VERITO Administration Levofloxacin/Dextrose 500 mg in 100 mls @ 100 mls/hr 07/28/24 11:30 07/28/24 11:38 Levaquin Ivpb IV 08/04/24 11:29 100 mls/hr QDAY VERITO Administration Loratadine 10 mg 07/28/24 10:30 07/28/24 11:38 Loratadine 10 Mg Tablet PO 08/27/24 10:29 10 mg QDAY VERITO Administration Losartan Potassium 50 mg 07/24/24 18:45 07/28/24 08:22 Losartan Potassium 25 Mg Tablet PO 08/23/24 18:44 50 mg QDAY VERITO Administration Ondansetron HCl 4 mg 07/24/24 17:23 Ondansetron Inj 2 Mg/Ml Inj 2 Ml IV 08/23/24 17:22 Q6H PRN NAUSEA OR VOMITING Protocol Tamsulosin HCl 0.4 mg 07/24/24 17:45 07/28/24 08:22 Tamsulosin Hcl 0.4 Mg Capsule PO 08/23/24 17:44 0.4 mg QDAY VERITO Administration Plan Patient is an 89-year-old former smoker male with past medical history of hypertension, 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 Patient will be admitted due to acute hypoxic respiratory failure secondary to acute decompensated heart failure versus bilateral pneumonia. #HFpEF EF 60 to 65% Cardiac echo showing EF 60 to 65% with normal LV function and size Strict ins and outs and fluid restrictions Continue with aggressive diuresis #Acute hypoxic respiratory failure #Left-sided pleural effusion s/p thoracentesis #Sepsis secondary to bilateral pneumonia #Community-acquired pneumonia #Hypertension #Hyperlipidemia #CAD status post stents #Status post pacemaker #History of valve replacement #Benign prostatic hyperplasia #History of TURP procedure Continue management per primary team Case discussed with attending primary teaching assistant Dr. Dennys Coe MD PGY3
[2024-07-28] MEDS: cefTRIAXone/D5w 1gm IV premix 50 ML IV (14:21)
[2024-07-28] MEDS: BENZONATATE 100 MG CAPSULE 200 MG PO ×2 (14:28→22:18)
[2024-07-28] MEDS: FLUCONAZOLE/NS 400 MG IVPB 400 MG/200 ML BAG 100 MG IV (14:43)
--- NOTE | 2024-07-28 14:55 | ESCONSULT_ITS ---
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 HISTORY OF PRESENT ILLNESS: The patient is an 89-year-old who recently had a bladder mass found when he had some blood in his urine. According to his daughter in [place], the bladder mass was found to represent skin cancer or prostate cancer one or both. I did not make a note of which one. The findings were not verified here. They occurred somewhere else. Urine cytology in March was nondiagnostic. The patient reportedly had two surgeries at [facility] where he spent nearly two weeks. Prior to that, he has had pacemaker, coronary stenting, and some sort of valve replacement. His blood cultures are negative here. He is not on any antibiotics on an outpatient basis and has no exposure to water sources according to his daughter. She is coming out to see him in the near future and plans to have him eventually drive back with her to [place] where he will be living in the future. His recent chest CT done on showed no obvious pulmonary emboli, he is here with pneumonia, but also been challenged by the presence of bilateral pleural fluid, which he had drainage on one side the other day of 1.5 liters to 2 liters of fluid. He denies history of diabetes or heart failure. He has always been overweight according to his daughter. He had the hematuria recently. Urinalysis done more recently was negative for blood, negative for nitrate and leukocyte esterase and had just 2 white cells, so relatively unimpressive. There are many more red cells noted in March than white cells about 10 times as many. No culture was done at that time. He has no symptoms of UTI. On exam, he is very hard of hearing. He is a pleasant gentleman, but extremely hard of hearing. The staff were in isolation because of his repeated viral panel. I assume that one was done on admission, but I cannot verify that. Pleural fluid analysis shows 2400 white cells, 1700 red cells with a mix of mononuclears and polys, but more mononuclears than polys by a long shot. Glucose was 204. Amylase was normal. I sure there is no obvious infection there. Valley fever testing is pending. The patient's CO2 is elevated. He is DNR, which is appropriate to given his age. His has passed. PAST MEDICAL HISTORY: Include known prostate and presumably skin cancer as well, heart failure, relative obesity. SURGICAL HISTORY: Includes, procedure at [facility] for the bladder cancer, bladder mass. It turned out to be a malignancy that sounds like it is metastatic from other location as well as prior cardiac procedures including aortic valve replacement, coronary stenting, and pacemaker placement. ALLERGIES: NONE KNOWN. IMMUNIZATIONS: Last tetanus was about three years ago. He does take flu shot every year, has had three COVID vaccines and has had pneumococcal vaccine as well. Apparently, he had some other vaccines as well as shingles vaccine in 2018 and PPSV in 2016. No one seems to know what that is. FAMILY HISTORY: Positive for his having dementia. He is otherwise negative. SOCIAL HISTORY: He is , lives with a dog. He plans to move in with his daughter in [place] in the near future. She may take him from here when he leaves. His creatinine is up a bit. It seems to have leveled off at about 1.1 to 1.3. It was technically normal, but it is a little bit elevated for a man of his age. PHYSICAL EXAMINATION: GENERAL: He is otherwise in no distress. He offers a reasonable history. His daughter is much quicker and faster on the history giving. HEENT: He is very hard of hearing. His labs show glucose is high. He wants to check A1c and see where that is as well. I will check on him again on Sunday. I took the liberty of ordering a test for Legionella and Legionella treatment. Even though he has no water exposures, we have to worry about that because of his age. DT: 11:29:40 TT: 13:22:00 Ref: [id number] - TID: [id number] JAY JAY
[2024-07-28 15:42] LABS: Influenza A Ag Negative; Influenza B Ag Negative
[2024-07-28] MEDS: ATORVASTATIN CALCIUM 20 MG TABLET 40 MG PO (20:23)
[2024-07-28] MEDS: MELATONIN 3 MG TABLET PO (20:23)
[2024-07-29] VITALS (13 sets, daily range): BP systolic 105–122; BP diastolic 51–88; PULSE 85–113; RESP 16–26; TEMP 35.9–36.6; O2SAT 93–99
[2024-07-29] MEDS: HYDROcodone/APAP 5/325 TABLET 1 TAB PO ×3 (01:44→23:14)
[2024-07-29] MEDS: BUMETANIDE INJ 0.25 MG/ML VIAL 4 ML 2 MG IVP ×3 (05:42→21:40)
[2024-07-29] MEDS: HEPARIN SOD INJ 5000 UNIT/ML VIAL SC ×3 (05:43→21:39)
[2024-07-29 05:56] LABS: Basophils # (Auto) 0.2 Thou/mm3 (0.0-0.2); Basophils % (Auto) 0 % (0-2.5); Eosinophils # (Auto) 0.6 Thou/mm3 (0.0-0.5); Eosinophils % (Auto) 2 % (0-10); Hematocrit 30.4 % (41.0-53.0); Hemoglobin 9.7 g/dL (13.5-16.0); Immature Granulocytes % (Auto) 3 % (0-0); Immature Granulocytes Auto 1.22 Thou/mm3 (0.00-0.00); Lymphocytes # (Auto) 1.8 Thou/mm3 (1.0-4.8); Lymphocytes % (Auto) 5 % (10-50); Mean Corpuscular HGB Conc 31.9 g/dl (31.0-37.0); Mean Corpuscular Hemoglobin 26.9 pg (25.0-35.0); Mean Corpuscular Volume 84 fL (80-100); Monocytes # (Auto) 2.3 Thou/mm3 (0.0-0.8); Monocytes % (Auto) 6 % (0-12); Neutrophils # (Auto) 30.3 Thou/mm3 (1.8-7.7); Neutrophils % (Auto) 83 % (37-80); Nucleated Red Blood Cell % 0 /100 WBC (0); Platelet Count 336 Thou/mm3 (140-440); RDW Standard Deviation 46.7 fL (35.1-43.9); Red Blood Count 3.61 Miln/mm3 (4.50-5.90)
[2024-07-29 05:58] LABS: Glucose Estimated Average 148 mg/dL (80-131); Hemoglobin A1C 6.8 % Hgb (4.8-6.0)
[2024-07-29 06:00] LABS: B-Type Natriuretic Peptide 33 pg/mL (0-100)
[2024-07-29 06:32] LABS: Prostate Specific Antigen 53.88 ng/mL (0-4.00)
[2024-07-29 06:37] LABS: White Blood Count 36.3 Thou/mm3 (3.8-10.6)
[2024-07-29 06:51] LABS: Alanine Aminotransferase 42 U/L (10-49); Albumin, Serum 3.7 gm/dL (3.4-4.8); Albumin/Globulin Ratio 1.3 (1.2-2.2); Alkaline Phosphatase 128 U/L (46-116); Anion Gap 7 (7-16); Aspartate Amino Transferase 24 U/L (0-34); BUN/Creatinine Ratio 26 Ratio (12-20); Bilirubin,Total 0.4 mg/dL (0.3-1.2); Blood Urea Nitrogen 31 mg/dL (9-23); Calcium 10.4 mg/dL (8.3-10.6); Calcium (Corrected) 10.6 mg/dL (8.5-10.1); Carbon Dioxide 33.7 mMol/L (20.0-31.0); Chloride 92 mMol/L (98-107); Creatinine (Component) 1.2 mg/dL (0.6-1.3); Estimated Creatinine Clearance 48.6 mL/min (>60); Globulin 2.8 gm/dL (2.3-3.5); Glucose 174 mg/dL (74-106); Osmolality,Calculated 276 (275-295); Phosphorous 3.5 mg/dL (2.4-5.1); Potassium 4.3 mMol/L (3.4-5.1); Sodium 133 mMol/L (136-145); Total Protein 6.5 gm/dL (5.7-8.2); eGFR 59 See Note
[2024-07-29 06:53] LABS: Hepatitis C Antibody Non Reactive (Non React)
[2024-07-29] MEDS: Magnesium Sulfate 2 GM Ivpb 2 GM/50 ML BAG IV (07:12)
--- NOTE | 2024-07-29 09:11 | PC.SS ---
Update: Patient receiving treatment for Valley Fever, IV antibiotics.
[2024-07-29] MEDS: LEVOFLOXACIN 250 MG TABLET 750 MG PO (09:24)
[2024-07-29] MEDS: lorataDINE 10 MG TABLET PO (09:24)
[2024-07-29] MEDS: FLUCONAZOLE/NS 400 MG IVPB 400 MG/200 ML BAG 100 MG IV (09:25)
[2024-07-29] MEDS: TAMSULOSIN HCL 0.4 MG CAPSULE PO (09:25)
[2024-07-29] MEDS: ASPIRIN EC 81 MG TABEC PO (09:25)
[2024-07-29 09:36] LABS: Band Neutrophils (Manual) 15 % (0-6); Eosinophils (Manual) 2 % (0-4); Lymphocytes (Manual) 7 % (20-44); Monocytes (Manual) 3 % (2-9); Neutrophils (Manual) 73 % (50-70)
[2024-07-29] MEDS: BENZONATATE 100 MG CAPSULE 200 MG PO (09:44)
--- NOTE | 2024-07-29 11:39 | PD.RESPRO ---
Documentation for date of: 07/29/24 Senior resident attestation: Patient evaluated and examined at the bedside, plan of care discussed with rest of the team including my attending physician, except as noted. The patient is a 89-year-old male admitted to the hospital for acute hypoxic respiratory failure, symptoms of orthopnea and PND, likely secondary to CHF exacerbation, as well as sepsis secondary to pneumonia. Patient has a history of bladder cancer recent surgery was done in June at a tertiary care center, patient tested positive for cocci, started on fluconazole. Started on IV diuresis with Bumex 2 mg twice daily, but diuresis below goal, will increase diuresis 2 mg 3 times daily. Appreciate cardio recommendations. Quresh PGY2 Subjective Subjective Interval history: Patient seen today at the bedside fine awake, alert, oriented x 3. No overnight events reported. States continued shortness of breath and increased work of breathing states he hurts all over and is getting tired. Vital signs stable at this time. Labs significant for uptrending WBCs 36.3, history of syncope toxin positive started on fluconazole. Today started on Levaquin. Patient continues to have lower extremity edema and continued reports shortness of breath increase Bumex 2 mg to 3 times daily. Exam Vital Signs Temp Pulse Resp BP Pulse Ox O2 Del Method O2 Flow Rate 96.7 F L 92 26 H 105/51 L 98 Nasal Cannula 5 07/29/24 08:00 07/29/24 09:25 07/29/24 08:00 07/29/24 09:25 07/29/24 08:00 07/29/24 08:00 07/29/24 08:00 FiO2 96 07/29/24 08:00 Narrative Exam Physical Exam GENERAL: NAD, AAOx3, hard of hearing HEENT: Moist mucosa. Eyes open, symmetrical, & clear CARDIO: Heart RRR, no obvious murmurs PULM: No noted coughing, +dyspnea, decreased BS on the left GI: Abdomen soft, nondistended, no pain on palpation. BSx4 SKIN/MSK/EXT: +2 pitting lower extremity edema, no pain on palpation. Sacral wound pedal pulses present B/L NEURO: AAOx3, no focal neuro deficits, able to move all 4 extremities Objective Labs 07/29/24 05:21 07/29/24 05:21 Labs: Laboratory Results - last 24 hr 07/28/24 07/28/24 07/29/24 10:32 10:40 05:21 WBC 36.3 H* RBC 3.61 L Hgb 9.7 L Hct 30.4 L MCV 84 MCH 26.9 MCHC 31.9 RDW Std Deviation 46.7 H Plt Count 336 Neut % (Auto) 83 H Lymph % (Auto) 5 L [place] % (Auto) 6 Eos % (Auto) 2 Baso % (Auto) 0 Neut # (Auto) 30.3 H Lymph # (Auto) 1.8 [place] # (Auto) 2.3 H Eos # (Auto) 0.6 H Baso # (Auto) 0.2 Immature Gran # (Auto) 1.22 H Absolute Nucleated RBC 0.00 Immature Gran % 3 H Neutrophils % (Manual) 73 H Monocytes % (Manual) 3 Eosinophils % (Manual) 2 Nucleated RBC % 0 Band Neutrophils 15 H Lymphocytes (Manual) 7 L Smear Path Review Cancelled Sodium 133 L Potassium 4.3 D Chloride 92 L Carbon Dioxide 33.7 H Anion Gap 7 BUN 31 H Creatinine 1.2 Estim Creat Clear Calc 48.6 L eGFR 59 L BUN/Creatinine Ratio 26 H Glucose [address] Glu mg/dL 148 H Hemoglobin A1c 6.8 H Calculated Osmolality 276 Calcium 10.4 Corrected Calcium 10.6 H Phosphorus 3.5 Magnesium 2.0 Total Bilirubin 0.4 AST 24 ALT 42 Alkaline Phosphatase 128 H B-Natriuretic Peptide 33 Total Protein 6.5 Albumin 3.7 D Globulin 2.8 Albumin/Globulin Ratio 1.3 Prostate Specific Ag 53.88 H Coccidioides IgM Ab Positive A Hepatitis C Antibody Non Reactive Influenza A (Rapid) Negative Influenza B (Rapid) Negative RSV Rapid Negative SARS-CoV-2 Ag (Rapid) Negative ABG Interpretation ABG results: 07/24/24 21:16 ABG pH 7.44 ABG pCO2 55 H ABG pO2 82 L ABG HCO3 37 H ABG O2 Saturation 97 ABG Base Excess 11 H Quality Measures Quality Measures none Advance care planning discussed with:: patient and child Assessment & Plan Assessment Current Active Medications: Generic Name Dose Route Start Last Admin Trade Name Freq PRN Reason Stop Dose Admin Acetaminophen 650 mg 07/24/24 17:23 07/25/24 01:33 Acetaminophen 325 Mg Tablet PO 08/23/24 17:22 650 mg Q6H PRN Administration Fever >100.5 Acetaminophen 650 mg 07/24/24 17:23 Acetaminophen 325 Mg Tablet PO 08/23/24 17:22 Q6H PRN PAIN SCALE 1-3 (mild Hydrocodone Bitart/Acetaminophen 1 tab 07/25/24 04:21 07/29/24 09:43 Hydrocodone/Apap 5/325 Tablet PO 07/30/24 04:20 1 tab Q6HR PRN Administration PAIN SCALE 4-10(Mod-Sev Aspirin 81 mg 07/24/24 18:15 07/29/24 09:25 Aspirin Ec 81 Mg Tabec PO 08/23/24 18:14 81 mg QDAY VERITO Administration Atorvastatin Calcium 40 mg 07/24/24 21:00 07/28/24 20:23 Atorvastatin Calcium 20 Mg Tablet PO 08/23/24 20:59 40 mg HS VERITO Administration Benzonatate 200 mg 07/28/24 09:45 07/29/24 09:44 Benzonatate 100 Mg Capsule PO 08/27/24 09:44 200 mg Q8HR PRN Administration COUGH Protocol Bumetanide 2 mg 07/29/24 14:00 Bumetanide Inj 0.25 Mg/Ml Vial 4 Ml IVP 08/28/24 13:59 TID VERITO Docusate Sodium 100 mg 07/25/24 09:00 07/29/24 09:29 Docusate Sod 100 Mg Capsule PO 08/24/24 08:59 Not Given QDAY VERITO Protocol Guaifenesin/Dextromethorphan 1 each 07/26/24 18:02 07/28/24 18:40 Guaifenesin/Dm Tablet PO 08/25/24 18:01 1 each Q4HR PRN Administration COUGH Heparin Sodium (Porcine) 5,000 unit 07/24/24 22:00 07/29/24 05:43 Heparin Sod Inj 5000 Unit/Ml Vial SC 08/07/24 21:59 5,000 unit Q8HR VERITO Administration Ceftriaxone Sodium/Dextrose 50 mls @ 100 mls/hr 07/28/24 13:55 07/28/24 14:21 Rocephin/D5w 1gm Iv Premix IV 08/04/24 13:54 100 mls/hr QDAY VERITO Administration Fluconazole 400 mg in 200 mls @ 100 mls/hr 07/28/24 13:57 07/29/24 09:25 Diflucan/Ns Ivpb IV 08/04/24 13:56 100 mls/hr QDAY VERITO Administration Levofloxacin 750 mg 07/29/24 09:00 07/29/24 09:24 Levofloxacin 250 Mg Tablet PO 08/05/24 08:59 750 mg QDAY VERITO Administration Loratadine 10 mg 07/28/24 10:30 07/29/24 09:24 Loratadine 10 Mg Tablet PO 08/27/24 10:29 10 mg QDAY VERITO Administration Losartan Potassium 50 mg 07/24/24 18:45 07/29/24 09:25 Losartan Potassium 25 Mg Tablet PO 08/23/24 18:44 Not Given QDAY VERITO Melatonin 3 mg 07/28/24 21:00 07/28/24 20:23 Melatonin 3 Mg Tablet PO 08/27/24 20:59 3 mg HS VERITO Administration Ondansetron HCl 4 mg 07/24/24 17:23 Ondansetron Inj 2 Mg/Ml Inj 2 Ml IV 08/23/24 17:22 Q6H PRN NAUSEA OR VOMITING Protocol Tamsulosin HCl 0.4 mg 07/24/24 17:45 07/29/24 09:25 Tamsulosin Hcl 0.4 Mg Capsule PO 08/23/24 17:44 0.4 mg QDAY VERITO Administration Plan 89-year-old former smoker male with past medical history of hypertension, congestive heart failure, hyperlipidemia who presented to the ED from Dr. Noyola's office due to shortness of breath. Patient will be admitted due to acute hypoxic respiratory failure secondary to acute decompensated heart failure versus bilateral pneumonia. #Acute hypoxic respiratory failure #Left-sided pleural effusion # HFpEF 60-65% #Pulmonary embolism-ruled out Patient has been having progressive shortness of breath for the past few days, patient endorses orthopnea BNP within normal limits, troponins negative Patient has extensive cardiac history including coronary artery disease with stent placement, congestive heart failure, hypertension, pacemaker placement, valve replacement Chest x-ray was done showed left-sided pleural effusion D-dimer was found to be more than 3820, CTA was ordered however patient was unable to lay flat so study was unable to be done, will likely need some diuresis and later perform study Ultrasound left side of the chest was done, ultrasound of the lower extremities was done negative for DVT Echo showed Normal LV size and function. Mild LVH. Estimated EF 60-65%. Normal RV size and function. Aortic bioprothetic valve mean gradient 4mmHg, vmax 1.5m/s. Trace TR. Large pleural effusion present. Patient underwent left-sided thoracentesis approximately 2 L of fluid removed. Postprocedure chest x-ray does not show much improvement will place patient on BiPAP at this time. CTA chest negative for pulmonary emboli -Bumex 2 mg IV twice daily -f/u US thoracentesis for re-accumulation -Strict ins and outs -Fluid restriction 1200 mL -Daily weights -BiPAP ?Pleural fluid culture still pending, continue with antibiotic therapy -Keep potassium above 4, magnesium above 2 -Cardiology Dr. Noyola consulted and appreciate recommendations #Sepsis secondary to bilateral pneumonia #Community-acquired pneumonia Admission patient had leukocytosis, tachycardia, tachypnea 3 out of 4 SIRS criteria with endorgan damage lung Patient had a cold a few weeks ago and then a few days ago started developing a cough with shortness of breath has been progressing till arrival here in the ED. Sepsis 30 cc/kg not given due to likely CHF exacerbation Lactic acid normal, Pro-Brandt 1.02 Blood cultures negative in 24 hours, urine culture is negative -Vancomycin and cefepime discontinued -started on levofloxacin by ID -f/u legionella, RSV, flu/covid -Sputum cultures pending -ID, Dr. Davis consulted, appreciate recommendations #Hypertension #Hyperlipidemia #CAD status post stents #Status post pacemaker #History of valve replacement Patient takes simvastatin 40 mg and baby aspirin -Resumed aspirin 81 mg daily -On losartan 50 mg daily -Atorvastatin 40 mg daily #Benign prostatic hyperplasia #History of TURP procedure -Resume Flomax 0.4 mg daily #Sacral wound On physical exam noted to have sacral wound possibly grade 1 -Wound care ordered Case discussed with my senior Dr. Bocanegra PGY-[address] Sandra Graff MD PGY-1 Disposition: Telemetry Fluids: None Feeding: Cardiac diet Thrombo prophylaxis: Heparin Gastric Ulcer prophylaxis: Not indicated CODE STATUS: DNR Attending Provider Attestation/Addendum I reviewed labs, imaging, EKG, home medications and prior available records. Face to face evaluation was performed by me. I have personally examined the patient and discussed assessment and plan with the IM team. I reviewed the resident note and agree with the plan with exceptions as below. Acute hypoxic respiratory failure CHF exacerbation, unknown EF Bilateral pneumonia, bibasilar, organism unknown CAD status post stenting Status post AICD Type 2 diabetes mellitus History of AV replacement History of bladder cancer He is on 5 L nasal cannula this a.m. Continue IV diuresis. Increased IV Bumex to 3 times daily given the persistence of edema Ordered IR guided pleurocentesis given the pleural effusion. Status post removal of 1.9 L of exudative fluid Ordered CTA of the chest given the persistent leukocytosis and to rule out loculated effusion: Showed extensive bilateral pneumonia Sent cocci IgM: Positive. Started fluconazole. Consulted ID: Switched antibiotics to Levaquin for possible associated pneumonia Ordered peripheral smear: Pending Ordered ultrasound of the lower extremities to rule out DVT: Showed no DVT Ordered echocardiogram showed preserved EF of 60 to 65% DVT prophylaxis with subcutaneous heparin Consulted cardiology PT evaluation A1c is 6.8. Monitor fingersticks.
--- NOTE | 2024-07-29 13:35 | ESPR_ITS ---
<Statement entered by Flower Noyola MD - 07/31/24 11:35> I personally examined the patient evaluated with the resident physician PGY 2 Dr. Anthony Coe, PGY 2 MD patient is doing better but still having a lot of shortness of breath diagnosed to have IgM antibodies for coccidioidomycosis started on fluconazole IV continues to improve slowly having some shortness of breath but no chest pain continue to monitor the patient with primary team condition still unstable though patient is feeling better also discussed with the family members about prognosis Documentation for date of: 07/29/24 Subjective Subjective Interval history: Patient seen and assessed at bedside. Patient denies any active chest pain except during coughing. Patient is tachycardic and still complaining of shortness of breath. Patient was working with PT but has not walked yet. Patient still feeling sick and is anxious to be discharged. Exam Vital Signs Temp Pulse Resp BP Pulse Ox O2 Del Method O2 Flow Rate 97.8 F 107 H 25 H 111/60 93 L Nasal Cannula 2 07/29/24 12:00 07/29/24 12:00 07/29/24 12:00 07/29/24 12:00 07/29/24 12:00 07/29/24 12:00 07/29/24 12:00 FiO2 96 07/29/24 12:00 Narrative Exam GENERAL: Pleasant elderly male. NAD, AAOx3, hard of hearing CARDIO: Tachycardic, no murmurs, rubs, or gallops. PULM: Chest clear to auscultation bilaterally anteriorly. No wheezing, rhonchi or rales. GI: Abdomen soft, nondistended, no pain on palpation. EXT: +1 pitting lower extremity edema. Objective Labs 07/29/24 05:21 07/29/24 05:21 Labs: Laboratory Results - last 24 hr 07/28/24 07/29/24 10:40 05:21 WBC 36.3 H* RBC 3.61 L Hgb 9.7 L Hct 30.4 L MCV 84 MCH 26.9 MCHC 31.9 RDW Std Deviation 46.7 H Plt Count 336 Neut % (Auto) 83 H Lymph % (Auto) 5 L [place] % (Auto) 6 Eos % (Auto) 2 Baso % (Auto) 0 Neut # (Auto) 30.3 H Lymph # (Auto) 1.8 [place] # (Auto) 2.3 H Eos # (Auto) 0.6 H Baso # (Auto) 0.2 Immature Gran # (Auto) 1.22 H Absolute Nucleated RBC 0.00 Immature Gran % 3 H Neutrophils % (Manual) 73 H Monocytes % (Manual) 3 Eosinophils % (Manual) 2 Nucleated RBC % 0 Band Neutrophils 15 H Lymphocytes (Manual) 7 L Smear Path Review Cancelled Sodium 133 L Potassium 4.3 D Chloride 92 L Carbon Dioxide 33.7 H Anion Gap 7 BUN 31 H Creatinine 1.2 Estim Creat Clear Calc 48.6 L eGFR 59 L BUN/Creatinine Ratio 26 H Glucose [address] Glu mg/dL 148 H Hemoglobin A1c 6.8 H Calculated Osmolality 276 Calcium 10.4 Corrected Calcium 10.6 H Phosphorus 3.5 Magnesium 2.0 Total Bilirubin 0.4 AST 24 ALT 42 Alkaline Phosphatase 128 H B-Natriuretic Peptide 33 Total Protein 6.5 Albumin 3.7 D Globulin 2.8 Albumin/Globulin Ratio 1.3 Prostate Specific Ag 53.88 H Hepatitis C Antibody Non Reactive Influenza A (Rapid) Negative Influenza B (Rapid) Negative ABG Interpretation ABG results: 07/24/24 21:16 ABG pH 7.44 ABG pCO2 55 H ABG pO2 82 L ABG HCO3 37 H ABG O2 Saturation 97 ABG Base Excess 11 H Quality Measures Quality Measures none Advance care planning discussed with:: patient and child Assessment & Plan Assessment Current Active Medications: Generic Name Dose Route Start Last Admin Trade Name Freq PRN Reason Stop Dose Admin Acetaminophen 650 mg 07/24/24 17:23 07/25/24 01:33 Acetaminophen 325 Mg Tablet PO 08/23/24 17:22 650 mg Q6H PRN Administration Fever >100.5 Acetaminophen 650 mg 07/24/24 17:23 Acetaminophen 325 Mg Tablet PO 08/23/24 17:22 Q6H PRN PAIN SCALE 1-3 (mild Hydrocodone Bitart/Acetaminophen 1 tab 07/25/24 04:21 07/29/24 09:43 Hydrocodone/Apap 5/325 Tablet PO 07/30/24 04:20 1 tab Q6HR PRN Administration PAIN SCALE 4-10(Mod-Sev Aspirin 81 mg 07/24/24 18:15 07/29/24 09:25 Aspirin Ec 81 Mg Tabec PO 08/23/24 18:14 81 mg QDAY VERITO Administration Atorvastatin Calcium 40 mg 07/24/24 21:00 07/28/24 20:23 Atorvastatin Calcium 20 Mg Tablet PO 08/23/24 20:59 40 mg HS VERITO Administration Benzonatate 200 mg 07/28/24 09:45 07/29/24 09:44 Benzonatate 100 Mg Capsule PO 08/27/24 09:44 200 mg Q8HR PRN Administration COUGH Protocol Bumetanide 2 mg 07/29/24 14:00 Bumetanide Inj 0.25 Mg/Ml Vial 4 Ml IVP 08/28/24 13:59 TID VERITO Docusate Sodium 100 mg 07/25/24 09:00 07/29/24 09:29 Docusate Sod 100 Mg Capsule PO 08/24/24 08:59 Not Given QDAY [facility] Protocol Fluconazole 400 mg 07/30/24 09:00 Fluconazole 100 Mg Tablet PO 08/06/24 08:59 QDAY VERITO Guaifenesin/Dextromethorphan 1 each 07/26/24 18:02 07/28/24 18:40 Guaifenesin/Dm Tablet PO 08/25/24 18:01 1 each Q4HR PRN Administration COUGH Heparin Sodium (Porcine) 5,000 unit 07/24/24 22:00 07/29/24 05:43 Heparin Sod Inj 5000 Unit/Ml Vial SC 08/07/24 21:59 5,000 unit Q8HR VERITO Administration Ceftriaxone Sodium/Dextrose 50 mls @ 100 mls/hr 07/28/24 13:55 07/28/24 14:21 Rocephin/D5w 1gm Iv Premix IV 08/04/24 13:54 100 mls/hr QDAY VERITO Administration Levofloxacin 750 mg 07/29/24 09:00 07/29/24 09:24 Levofloxacin 250 Mg Tablet PO 08/05/24 08:59 750 mg QDAY VERITO Administration Loratadine 10 mg 07/28/24 10:30 07/29/24 09:24 Loratadine 10 Mg Tablet PO 08/27/24 10:29 10 mg QDAY VERITO Administration Losartan Potassium 50 mg 07/24/24 18:45 07/29/24 09:25 Losartan Potassium 25 Mg Tablet PO 08/23/24 18:44 Not Given QDAY VERITO Melatonin 3 mg 07/28/24 21:00 07/28/24 20:23 Melatonin 3 Mg Tablet PO 08/27/24 20:59 3 mg HS VERITO Administration Ondansetron HCl 4 mg 07/24/24 17:23 Ondansetron Inj 2 Mg/Ml Inj 2 Ml IV 08/23/24 17:22 Q6H PRN NAUSEA OR VOMITING Protocol Tamsulosin HCl 0.4 mg 07/24/24 17:45 07/29/24 09:25 Tamsulosin Hcl 0.4 Mg Capsule PO 08/23/24 17:44 0.4 mg QDAY VERITO Administration Plan Patient is an 89-year-old former smoker male with past medical history of hypertension, 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 Patient will be admitted due to acute hypoxic respiratory failure secondary to acute decompensated heart failure versus bilateral pneumonia. #HFpEF EF 60 to 65% Cardiac echo showing EF 60 to 65% with normal LV function and size Strict ins and outs and fluid restrictions Continue with diuresis Continue weaning off oxygen as able. EKG done today showing paced rhythm with tachycardia. #Acute hypoxic respiratory failure #Left-sided pleural effusion s/p thoracentesis #Sepsis secondary to bilateral pneumonia #Community-acquired pneumonia #Hypertension #Hyperlipidemia #CAD status post stents #Status post pacemaker #History of valve replacement #Benign prostatic hyperplasia #History of TURP procedure #Cocci Continue management per primary team Case discussed with attending stagecraft teacher Dr. Dennys Coe MD PGY3
--- NOTE | 2024-07-29 16:53 | EKG_ITS ---
[facility] Test Date: 2024-07-29 Pat Name: SANDEE BERNAL [facility] Gender[facility] Shoveler: TI : 1935 Requested By: Anthony Coe Order Number: [id number] Reading MD: Anthony Coe Measurements Intervals [place] Rate: 104 P: -39 PA: 192 QRS: -68 QRSD: 184 T: 82 QT: 383 QTc: 505 Interpretive Statements ELECTRONIC VENTRICULAR PACEMAKER ABNORMAL RHYTHM ECG Compared to ECG 07/24/2024 14:34:06 Sinus rhythm no longer present Left-axis deviation no longer present Left bundle-branch block no longer present /store/S0/[id number]/[id number].pdf
[2024-07-29] MEDS: ATORVASTATIN CALCIUM 20 MG TABLET 40 MG PO (20:48)
[2024-07-29] MEDS: guaiFENesin/DM 10 ML UDC PO (20:48)
[2024-07-29] MEDS: MELATONIN 3 MG TABLET PO (20:48)
[2024-07-30] VITALS (14 sets, daily range): BP systolic 94–137; BP diastolic 51–85; PULSE 73–103; RESP 15–28; TEMP 36.1–36.7; O2SAT 92–100; BMI 13.0
[2024-07-30] MEDS: HEPARIN SOD INJ 5000 UNIT/ML VIAL SC ×3 (05:10→20:27)
[2024-07-30] MEDS: BUMETANIDE INJ 0.25 MG/ML VIAL 4 ML 2 MG IVP ×3 (05:11→20:27)
[2024-07-30] MEDS: HYDROcodone/APAP 5/325 TABLET 1 TAB PO ×3 (06:30→20:30)
[2024-07-30 07:46] LABS: Basophils # (Auto) 0.1 Thou/mm3 (0.0-0.2); Basophils % (Auto) 0 % (0-2.5); Eosinophils # (Auto) 0.5 Thou/mm3 (0.0-0.5); Eosinophils % (Auto) 1 % (0-10); Hematocrit 30.5 % (41.0-53.0); Hemoglobin 9.8 g/dL (13.5-16.0); Immature Granulocytes % (Auto) 4 % (0-0); Immature Granulocytes Auto 1.42 Thou/mm3 (0.00-0.00); Lymphocytes # (Auto) 1.7 Thou/mm3 (1.0-4.8); Lymphocytes % (Auto) 5 % (10-50); Mean Corpuscular HGB Conc 32.1 g/dl (31.0-37.0); Mean Corpuscular Hemoglobin 27.2 pg (25.0-35.0); Mean Corpuscular Volume 85 fL (80-100); Monocytes # (Auto) 2.4 Thou/mm3 (0.0-0.8); Monocytes % (Auto) 7 % (0-12); Neutrophils # (Auto) 30.2 Thou/mm3 (1.8-7.7); Neutrophils % (Auto) 83 % (37-80); Nucleated Red Blood Cell % 0 /100 WBC (0); Platelet Count 326 Thou/mm3 (140-440); RDW Standard Deviation 46.4 fL (35.1-43.9)
[2024-07-30 07:58] LABS: Alanine Aminotransferase 46 U/L (10-49); Albumin, Serum 3.7 gm/dL (3.4-4.8); Albumin/Globulin Ratio 1.2 (1.2-2.2); Alkaline Phosphatase 133 U/L (46-116); Anion Gap 6 (7-16); Aspartate Amino Transferase 30 U/L (0-34); BUN/Creatinine Ratio 25 Ratio (12-20); Bilirubin,Total 0.5 mg/dL (0.3-1.2); Blood Urea Nitrogen 27 mg/dL (9-23); Calcium 10.6 mg/dL (8.3-10.6); Calcium (Corrected) 10.8 mg/dL (8.5-10.1); Carbon Dioxide 38.2 mMol/L (20.0-31.0); Chloride 89 mMol/L (98-107); Creatinine (Component) 1.1 mg/dL (0.6-1.3); Globulin 3.1 gm/dL (2.3-3.5); Glucose 173 mg/dL (74-106); Magnesium 1.9 mg/dL (1.6-2.6); Osmolality,Calculated 275 (275-295); Potassium 3.5 mMol/L (3.4-5.1); Sodium 133 mMol/L (136-145); Total Protein 6.8 gm/dL (5.7-8.2); eGFR > 60 See Note
[2024-07-30] MEDS: TAMSULOSIN HCL 0.4 MG CAPSULE PO (08:25)
[2024-07-30] MEDS: cefTRIAXone/D5w 1gm IV premix 50 ML IV (08:25)
[2024-07-30] MEDS: FLUCONAZOLE 100 MG TABLET 400 MG PO (08:25)
[2024-07-30] MEDS: ASPIRIN EC 81 MG TABEC PO (08:25)
[2024-07-30] MEDS: lorataDINE 10 MG TABLET PO (08:25)
[2024-07-30] MEDS: guaiFENesin/DM 10 ML UDC PO ×2 (08:25→20:28)
[2024-07-30 08:32] LABS: White Blood Count 36.3 Thou/mm3 (3.8-10.6)
--- NOTE | 2024-07-30 09:51 | ESPR_ITS ---
Documentation for date of: 07/30/24 Senior resident attestation: Patient evaluated and examined at the bedside, plan of care discussed with rest of the team including my attending physician, except as noted. The patient is a 89-year-old male admitted to the hospital for acute hypoxic respiratory failure, symptoms of orthopnea and PND, likely secondary to CHF exacerbation, as well as sepsis secondary to pneumonia. Patient has a history of bladder cancer recent surgery was done in June at a tertiary care center, patient tested positive for cocci, started on fluconazole. Started on IV diuresis with Bumex 2 mg twice daily, but diuresis below goal, will increase diuresis 2 mg 3 times daily. Appreciate cardio recommendations. 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 Also reported the patient had a PET scan following surgery which did not report metastasis in the lungs. Also noted patient's prior CT chest from April 08 which did not show infiltrates compared to the recent chest imaging. Will continue to treat for cocci, pending Legionella antigen Quresh PGY2 Subjective Subjective Interval history: Patient seen today at the bedside found awake, alert, orientedx3. No overnight events reported. States he is tired of being in the hospital. Vital signs stable at this time. Labs significant for uptrending WBCs. At this time we will panculture to reevaluate for possible infection. Patient was started on levofloxacin by ID, however he EKG was done which showed a QTc prolongation antibiotic was put on hold and was switched to ceftriaxone. Pending infectious disease recommendations. Exam Vital Signs Temp Pulse Resp BP Pulse Ox O2 Del Method O2 Flow Rate 96.9 F 96 20 112/51 L 95 Nasal Cannula 3 07/30/24 08:00 07/30/24 08:26 07/30/24 08:00 07/30/24 08:26 07/30/24 08:00 07/30/24 08:00 07/30/24 08:00 FiO2 96 07/30/24 08:00 Narrative Exam Physical Exam GENERAL: NAD, AAOx3, hard of hearing HEENT: Moist mucosa. Eyes open, symmetrical, & clear CARDIO: Heart RRR, no obvious murmurs PULM: No noted coughing, +dyspnea, decreased BS on the left GI: Abdomen soft, nondistended, no pain on palpation. BSx4 SKIN/MSK/EXT: +2 pitting lower extremity edema, no pain on palpation. Sacral wound pedal pulses present B/L NEURO: AAOx3, no focal neuro deficits, able to move all 4 extremities Objective Labs 07/31/24 05:38 07/31/24 05:38 Labs: Laboratory Results - last 24 hr 07/30/24 07:20 WBC 36.3 H* RBC 3.60 L Hgb 9.8 L Hct 30.5 L MCV 85 MCH 27.2 MCHC 32.1 RDW Std Deviation 46.4 H Plt Count 326 Neut % (Auto) 83 H Lymph % (Auto) 5 L [place] % (Auto) 7 Eos % (Auto) 1 Baso % (Auto) 0 Neut # (Auto) 30.2 H Lymph # (Auto) 1.7 [place] # (Auto) 2.4 H Eos # (Auto) 0.5 Baso # (Auto) 0.1 Immature Gran # (Auto) 1.42 H Absolute Nucleated RBC 0.00 Immature Gran % 4 H Nucleated RBC % 0 Smear Path Review Cancelled Sodium 133 L Potassium 3.5 D Chloride 89 L Carbon Dioxide 38.2 H Anion Gap 6 L BUN 27 H Creatinine 1.1 Estim Creat Clear Calc 53.0 L eGFR > 60 BUN/Creatinine Ratio 25 H Glucose 173 H Calculated Osmolality 275 Calcium 10.6 Corrected Calcium 10.8 H Magnesium 1.9 Total Bilirubin 0.5 AST 30 ALT 46 Alkaline Phosphatase 133 H Total Protein 6.8 Albumin 3.7 Globulin 3.1 Albumin/Globulin Ratio 1.2 ABG Interpretation ABG results: 07/24/24 21:16 ABG pH 7.44 ABG pCO2 55 H ABG pO2 82 L ABG HCO3 37 H ABG O2 Saturation 97 ABG Base Excess 11 H Quality Measures Quality Measures none Advance care planning discussed with:: patient Assessment & Plan Assessment Current Active Medications: Generic Name Dose Route Start Last Admin Trade Name Freq PRN Reason Stop Dose Admin Acetaminophen 650 mg 07/24/24 17:23 07/25/24 01:33 Acetaminophen 325 Mg Tablet PO 08/23/24 17:22 650 mg Q6H PRN Administration Fever >100.5 Acetaminophen 650 mg 07/24/24 17:23 Acetaminophen 325 Mg Tablet PO 08/23/24 17:22 Q6H PRN PAIN SCALE 1-3 (mild Hydrocodone Bitart/Acetaminophen 1 tab 07/30/24 05:49 07/30/24 06:30 Hydrocodone/Apap 5/325 Tablet PO 08/04/24 05:48 1 tab Q6HR PRN Administration PAIN SCALE 7-10 (Severe Aspirin 81 mg 07/24/24 18:15 07/30/24 08:25 Aspirin Ec 81 Mg Tabec PO 08/23/24 18:14 81 mg QDAY VERITO Administration Atorvastatin Calcium 40 mg 07/24/24 21:00 07/29/24 20:48 Atorvastatin Calcium 20 Mg Tablet PO 08/23/24 20:59 40 mg HS VERITO Administration Benzonatate 200 mg 07/28/24 09:45 07/29/24 09:44 Benzonatate 100 Mg Capsule PO 08/27/24 09:44 200 mg Q8HR PRN Administration COUGH Protocol Bumetanide 2 mg 07/29/24 14:00 07/30/24 05:11 Bumetanide Inj 0.25 Mg/Ml Vial 4 Ml IVP 08/28/24 13:59 2 mg TID VERITO Administration Docusate Sodium 100 mg 07/25/24 09:00 07/30/24 08:45 Docusate Sod 100 Mg Capsule PO 08/24/24 08:59 Not Given QDAY VERITO Protocol Fluconazole 400 mg 07/30/24 09:00 07/30/24 08:25 Fluconazole 100 Mg Tablet PO 08/06/24 08:59 400 mg QDAY VERITO Administration Guaifenesin/Dextromethorphan 10 ml 07/29/24 21:00 07/30/24 08:25 Guaifenesin/Dm 10 Ml Udc PO 08/28/24 20:59 10 ml BID VERITO Administration Protocol Heparin Sodium (Porcine) 5,000 unit 07/24/24 22:00 07/30/24 05:10 Heparin Sod Inj 5000 Unit/Ml Vial SC 08/07/24 21:59 5,000 unit Q8HR EVRITO Administration Ceftriaxone Sodium/Dextrose 50 mls @ 100 mls/hr 07/30/24 07:50 07/30/24 08:25 Rocephin/D5w 1gm Iv Premix IV 08/06/24 07:49 100 mls/hr QDAY VERITO Administration Levofloxacin 750 mg 07/29/24 09:00 07/29/24 09:24 Levofloxacin 250 Mg Tablet PO 08/05/24 08:59 750 mg QDAY VERITO Administration Loratadine 10 mg 07/28/24 10:30 07/30/24 08:25 Loratadine 10 Mg Tablet PO 08/27/24 10:29 10 mg QDAY VERITO Administration Losartan Potassium 50 mg 07/24/24 18:45 07/30/24 08:26 Losartan Potassium 25 Mg Tablet PO 08/23/24 18:44 Not Given QDAY VERITO Melatonin 3 mg 07/28/24 21:00 07/29/24 20:48 Melatonin 3 Mg Tablet PO 08/27/24 20:59 3 mg HS VERITO Administration Ondansetron HCl 4 mg 07/24/24 17:23 Ondansetron Inj 2 Mg/Ml Inj 2 Ml IV 08/23/24 17:22 Q6H PRN NAUSEA OR VOMITING Protocol Tamsulosin HCl 0.4 mg 07/24/24 17:45 07/30/24 08:25 Tamsulosin Hcl 0.4 Mg Capsule PO 08/23/24 17:44 0.4 mg QDAY VERITO Administration Plan 89-year-old former smoker male with past medical history of hypertension, congestive heart failure, hyperlipidemia who presented to the ED from Dr. Noyola's office due to shortness of breath. Patient will be admitted due to acute hypoxic respiratory failure secondary to acute decompensated heart failure versus bilateral pneumonia. #Acute hypoxic respiratory failure #Left-sided pleural effusion # HFpEF 60-65% #Pulmonary embolism-ruled out Patient has been having progressive shortness of breath for the past few days, patient endorses orthopnea BNP within normal limits, troponins negative Patient has extensive cardiac history including coronary artery disease with stent placement, congestive heart failure, hypertension, pacemaker placement, valve replacement Chest x-ray was done showed left-sided pleural effusion D-dimer was found to be more than 3820, CTA was ordered however patient was unable to lay flat so study was unable to be done, will likely need some diuresis and later perform study Ultrasound left side of the chest was done, ultrasound of the lower extremities was done negative for DVT Echo showed Normal LV size and function. Mild LVH. Estimated EF 60-65%. Normal RV size and function. Aortic bioprothetic valve mean gradient 4mmHg, vmax 1.5m/s. Trace TR. Large pleural effusion present. Patient underwent left-sided thoracentesis approximately 2 L of fluid removed. Postprocedure chest x-ray does not show much improvement will place patient on BiPAP at this time. CTA chest negative for pulmonary emboli -Bumex 2 mg IV three times daily -Strict ins and outs -Fluid restriction 1200 mL -Daily weights -BiPAP ?Pleural fluid culture still pending, continue with antibiotic therapy -Keep potassium above 4, magnesium above 2 -Cardiology Dr. Noyola consulted and appreciate recommendations #Sepsis secondary to bilateral pneumonia #Community-acquired pneumonia #Cocci Pneumonia Admission patient had leukocytosis, tachycardia, tachypnea 3 out of 4 SIRS criteria with endorgan damage lung Patient had a cold a few weeks ago and then a few days ago started developing a cough with shortness of breath has been progressing till arrival here in the ED. Sepsis 30 cc/kg not given due to likely CHF exacerbation Lactic acid normal, Pro-Brandt 1.02 Blood cultures negative in 24 hours, urine culture is negative RSV negative, COVID-negative, flu negative -Levofloxacin on hold -On ceftriaxone -Diflucan 400mg -Follow-up Legionella, Aspergillus -Follow-up blood cultures -Follow-up urine cultures -Sputum cultures pending -ID, Dr. Davis consulted, appreciate recommendations #Hypertension #Hyperlipidemia #CAD status post stents #Status post pacemaker #History of valve replacement #QT prolongation Patient takes simvastatin 40 mg and baby aspirin EKG was done showed QTc 505 -Hold QT prolonging agents -Resumed aspirin 81 mg daily -On losartan 50 mg daily -Atorvastatin 40 mg daily #Benign prostatic hyperplasia #History of TURP procedure -Resume Flomax 0.4 mg daily #Sacral wound On physical exam noted to have sacral wound possibly grade 1 -Wound care ordered Case discussed with my senior Dr. Bocanegra PGY-[address] Blanco Graff MD PGY-1 Disposition: Telemetry Fluids: None Feeding: Cardiac diet Thrombo prophylaxis: Heparin Gastric Ulcer prophylaxis: Not indicated CODE STATUS: DNR Attending Provider Attestation/Addendum Mayra Jones DO, attest that I was physically present for the ca portions of the service and evaluated the patient with the resident and I reviewed and discussed the case with the resident and agree with the resident's findings and plans of care as documented above Patient seen and evaluated this AM. Patient states that he is very fatigued. WBC remains elevated. 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 Patient had a PET scan following the procedure and was not found to have any lung nodules, only pelvic LNs involved. Daughter states that she can bring records tomorrow for us to review. CTA was reviewed and shows some nodular opacities at left lung base which could be secondary to valley fever. Patient currently on 6L and states he is tired and wants to go home. Peripheral smear shows reactive process. Patient has been afebrile. Thoracoscentsesis had been down and fluid was exudative with copious RBCs concerning for CA. Patient has a remote history of smoking. Cytology for effusion also negative for malignancy, but pleural fluid is very low yield for malignancy. Leukocytosis could be reactive as patient has been on diuretics of bumex 1mg IV daily. Per daughter, b/l LE edema appears improved, but he continues to have 2+ pitting edema. Will continue with diuresis. F/u with ID and cardiology recs.
[2024-07-30] MEDS: DORZOLAMIDE BOTH EYES ×2 (10:20→20:29)
[2024-07-30] MEDS: [UNRECOGNIZED DRUG - OTHER] BOTH EYES ×2 (10:20→20:29)
--- NOTE | 2024-07-30 10:28 | PC.SS ---
Update: WBC remains elevated need to trend down prior to d/c.
[2024-07-30] MEDS: SODIUM CHLORIDE RT 10% 15 ML NEBU 5 ML INH (10:32)
--- NOTE | 2024-07-30 10:33 | PC.SS ---
Update: Patient continues to receive IV antibiotics.
--- NOTE | 2024-07-30 14:03 | ESPR_ITS ---
<Statement entered by Flower Noyola MD - 07/31/24 11:36> I personally examined evaluated the patient appears to be doing clinically better but still having shortness of breath tiredness hypoxemia did not get out of the bed will get physical therapy started on fluconazole IV continue rest of medications evaluated the patient along with Dr. Coe PGY2 agree with the treatment plan recommendation as documented Documentation for date of: 07/30/24 Subjective Subjective Interval history: Patient seen and assessed at bedside. Patient still complaining of shortness of breath and mild chest pain with coughing. Patient appears slightly better but is still having a white count of 36,000. Will continue with fluconazole for cocci and ID recommendations. Patient's heart rate improved today, denies any palpitations. Will continue with diuresis as patient still has lower extremity edema. Exam Vital Signs Temp Pulse Resp BP Pulse Ox O2 Del Method O2 Flow Rate 97.3 F 73 23 H 117/56 L 100 Nasal Cannula 3 07/30/24 12:00 07/30/24 12:00 07/30/24 12:00 07/30/24 12:00 07/30/24 12:00 07/30/24 12:00 07/30/24 12:00 FiO2 96 07/30/24 12:00 Narrative Exam GENERAL: Pleasant elderly male. NAD, AAOx3, hard of hearing CARDIO: Regular rate and rhythm, no murmurs, rubs, or gallops. PULM: Chest clear to auscultation bilaterally anteriorly. No wheezing, rhonchi or rales. GI: Abdomen soft, nondistended, no pain on palpation. EXT: +1 pitting lower extremity edema. Objective Labs 07/30/24 07:20 07/30/24 07:20 Labs: Laboratory Results - last 24 hr 07/30/24 07:20 WBC 36.3 H* RBC 3.60 L Hgb 9.8 L Hct 30.5 L MCV 85 MCH 27.2 MCHC 32.1 RDW Std Deviation 46.4 H Plt Count 326 Neut % (Auto) 83 H Lymph % (Auto) 5 L [place] % (Auto) 7 Eos % (Auto) 1 Baso % (Auto) 0 Neut # (Auto) 30.2 H Lymph # (Auto) 1.7 [place] # (Auto) 2.4 H Eos # (Auto) 0.5 Baso # (Auto) 0.1 Immature Gran # (Auto) 1.42 H Absolute Nucleated RBC 0.00 Immature Gran % 4 H Nucleated RBC % 0 Smear Path Review Cancelled Sodium 133 L Potassium 3.5 D Chloride 89 L Carbon Dioxide 38.2 H Anion Gap 6 L BUN 27 H Creatinine 1.1 Estim Creat Clear Calc 53.0 L eGFR > 60 BUN/Creatinine Ratio 25 H Glucose 173 H Calculated Osmolality 275 Calcium 10.6 Corrected Calcium 10.8 H Magnesium 1.9 Total Bilirubin 0.5 AST 30 ALT 46 Alkaline Phosphatase 133 H Total Protein 6.8 Albumin 3.7 Globulin 3.1 Albumin/Globulin Ratio 1.2 ABG Interpretation ABG results: 07/24/24 21:16 ABG pH 7.44 ABG pCO2 55 H ABG pO2 82 L ABG HCO3 37 H ABG O2 Saturation 97 ABG Base Excess 11 H Quality Measures Quality Measures none Advance care planning discussed with:: patient and child Assessment & Plan Assessment Current Active Medications: Generic Name Dose Route Start Last Admin Trade Name Freq PRN Reason Stop Dose Admin Acetaminophen 650 mg 07/24/24 17:23 07/25/24 01:33 Acetaminophen 325 Mg Tablet PO 08/23/24 17:22 650 mg Q6H PRN Administration Fever >100.5 Acetaminophen 650 mg 07/24/24 17:23 Acetaminophen 325 Mg Tablet PO 08/23/24 17:22 Q6H PRN PAIN SCALE 1-3 (mild Hydrocodone Bitart/Acetaminophen 1 tab 07/30/24 05:49 07/30/24 06:30 Hydrocodone/Apap 5/325 Tablet PO 08/04/24 05:48 1 tab Q6HR PRN Administration PAIN SCALE 7-10 (Severe Aspirin 81 mg 07/24/24 18:15 07/30/24 08:25 Aspirin Ec 81 Mg Tabec PO 08/23/24 18:14 81 mg QDAY VERITO Administration Atorvastatin Calcium 40 mg 07/24/24 21:00 07/29/24 20:48 Atorvastatin Calcium 20 Mg Tablet PO 08/23/24 20:59 40 mg HS VERITO Administration Benzonatate 200 mg 07/28/24 09:45 07/29/24 09:44 Benzonatate 100 Mg Capsule PO 08/27/24 09:44 200 mg Q8HR PRN Administration COUGH Protocol Bumetanide 2 mg 07/29/24 14:00 07/30/24 05:11 Bumetanide Inj 0.25 Mg/Ml Vial 4 Ml IVP 08/28/24 13:59 2 mg TID VERITO Administration Docusate Sodium 100 mg 07/25/24 09:00 07/30/24 08:45 Docusate Sod 100 Mg Capsule PO 08/24/24 08:59 Not Given QDAY VERITO Protocol Dorzolamide/Timolol 1 drop 07/30/24 10:00 07/30/24 10:20 Dorzolamide/Timolol Op Tammy 10 Ml Btl BOTH EYES 08/29/24 09:59 1 drop BID VERITO Administration Fluconazole 400 mg 07/30/24 09:00 07/30/24 08:25 Fluconazole 100 Mg Tablet PO 08/06/24 08:59 400 mg QDAY VERITO Administration Guaifenesin/Dextromethorphan 10 ml 07/29/24 21:00 07/30/24 08:25 Guaifenesin/Dm 10 Ml Udc PO 08/28/24 20:59 10 ml BID VERITO Administration Protocol Heparin Sodium (Porcine) 5,000 unit 07/24/24 22:00 07/30/24 05:10 Heparin Sod Inj 5000 Unit/Ml Vial SC 08/07/24 21:59 5,000 unit Q8HR VERITO Administration Ceftriaxone Sodium/Dextrose 50 mls @ 100 mls/hr 07/30/24 07:50 07/30/24 08:25 Rocephin/D5w 1gm Iv Premix IV 08/06/24 07:49 100 mls/hr QDAY VERITO Administration Latanoprost 0 drop 07/30/24 21:00 Latanoprost Op Tammy 0.005% 2.5 Ml Btl BOTH EYES 08/29/24 20:59 QPM VERITO Levofloxacin 750 mg 07/29/24 09:00 07/29/24 09:24 Levofloxacin 250 Mg Tablet PO 08/05/24 08:59 750 mg QDAY VERITO Administration Loratadine 10 mg 07/28/24 10:30 07/30/24 08:25 Loratadine 10 Mg Tablet PO 08/27/24 10:29 10 mg QDAY VERITO Administration Losartan Potassium 50 mg 07/24/24 18:45 07/30/24 08:26 Losartan Potassium 25 Mg Tablet PO 08/23/24 18:44 Not Given QDAY VERITO Melatonin 3 mg 07/28/24 21:00 07/29/24 20:48 Melatonin 3 Mg Tablet PO 08/27/24 20:59 3 mg HS VERITO Administration Ondansetron HCl 4 mg 07/24/24 17:23 Ondansetron Inj 2 Mg/Ml Inj 2 Ml IV 08/23/24 17:22 Q6H PRN NAUSEA OR VOMITING Protocol Tamsulosin HCl 0.4 mg 07/24/24 17:45 07/30/24 08:25 Tamsulosin Hcl 0.4 Mg Capsule PO 08/23/24 17:44 0.4 mg QDAY VERITO Administration Plan Patient is an 89-year-old former smoker male with past medical history of hypertension, 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 Patient will be admitted due to acute hypoxic respiratory failure secondary to acute decompensated heart failure versus bilateral pneumonia. #HFpEF EF 60 to 65% Cardiac echo showing EF 60 to 65% with normal LV function and size Strict ins and outs and fluid restrictions Continue with diuresis Continue weaning off oxygen as able. #Acute hypoxic respiratory failure #Left-sided pleural effusion s/p thoracentesis #Sepsis secondary to bilateral pneumonia #Community-acquired pneumonia #Hypertension #Hyperlipidemia #CAD status post stents #Status post pacemaker #History of valve replacement #Benign prostatic hyperplasia #History of TURP procedure #Cocci Continue management per primary team Case discussed with attending production cloth cutter Dr. Dennys Coe MD PGY3
--- NOTE | 2024-07-30 14:32 | PC.SS ---
Rounding Note: Plan is to wean down patient's oxygen. D/C within 1-2 days. Patient receptive to SNF upon discharge.
--- NOTE | 2024-07-30 15:10 | PC.SS ---
[employer] GENERATOR O[employer]ER confirmed with patient that discharge plan is for the patient to return home with home health. Patient previously aligned with [facility]. Home health nurse, Milla. Patient did not utilize home oxygen prior to admission. If home oxygen required, no preferred vendor identified.
--- NOTE | 2024-07-30 16:15 | ESPR_ITS ---
Subjective Subjective Interval history: case reviewed. repeat bc on rx have a very low yield. but pt has a wbc elevation that is part of the problem here. no fever noted. Exam Vital Signs Temp Pulse Resp BP Pulse Ox O2 Del Method O2 Flow Rate 97.3 F 73 23 H 117/56 L 100 Nasal Cannula 3 07/30/24 12:00 07/30/24 14:20 07/30/24 12:00 07/30/24 14:20 07/30/24 12:00 07/30/24 12:00 07/30/24 12:00 FiO2 96 07/30/24 12:00 Narrative Exam limited visit. Objective - Internal Medicine Labs 07/30/24 07:20 07/30/24 07:20 Labs: Laboratory Results - last 24 hr 07/30/24 07:20 WBC 36.3 H* RBC 3.60 L Hgb 9.8 L Hct 30.5 L MCV 85 MCH 27.2 MCHC 32.1 RDW Std Deviation 46.4 H Plt Count 326 Neut % (Auto) 83 H Lymph % (Auto) 5 L [place] % (Auto) 7 Eos % (Auto) 1 Baso % (Auto) 0 Neut # (Auto) 30.2 H Lymph # (Auto) 1.7 [place] # (Auto) 2.4 H Eos # (Auto) 0.5 Baso # (Auto) 0.1 Immature Gran # (Auto) 1.42 H Absolute Nucleated RBC 0.00 Immature Gran % 4 H Nucleated RBC % 0 Smear Path Review Cancelled Sodium 133 L Potassium 3.5 D Chloride 89 L Carbon Dioxide 38.2 H Anion Gap 6 L BUN 27 H Creatinine 1.1 Estim Creat Clear Calc 53.0 L eGFR > 60 BUN/Creatinine Ratio 25 H Glucose 173 H Calculated Osmolality 275 Calcium 10.6 Corrected Calcium 10.8 H Magnesium 1.9 Total Bilirubin 0.5 AST 30 ALT 46 Alkaline Phosphatase 133 H Total Protein 6.8 Albumin 3.7 Globulin 3.1 Albumin/Globulin Ratio 1.2 ABG Interpretation ABG results: 07/24/24 21:16 ABG pH 7.44 ABG pCO2 55 H ABG pO2 82 L ABG HCO3 37 H ABG O2 Saturation 97 ABG Base Excess 11 H Assessment & Plan A&P Narrative pneumonia with normal bnp on arrival, pos cocci IgM locally from 07/28 noted. 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 O2 added for sats in the mid ' pleural fluid analysis with mostly rbc's. relatively few wbc ote that pt is dnr. so heed the guidance. will check in again on Sun. note that this could also be CA related. cocci now in ddx too, but does not get out much, so may be false pos. legionella ag pending too. ok to screen for other things. is going to live with daughter moving forward in [place]. 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 so chest issue may also be metastatic. wbc maybe multifactorial. current rx empirical. and pt afebrile. Time Spent With Patient Time: Total time spent is greater than 50% in coordination of care (as documented) at patient's floor/unit and/or counseling patient:
[2024-07-30] MEDS: MELATONIN 3 MG TABLET 6 MG PO (20:28)
[2024-07-30] MEDS: ATORVASTATIN CALCIUM 20 MG TABLET 40 MG PO (20:28)
[2024-07-31] VITALS (10 sets, daily range): BP systolic 113–126; BP diastolic 54–69; PULSE 69–97; RESP 12–24; TEMP 36–36.3; O2SAT 92–98; BMI 29.9
[2024-07-31] MEDS: HEPARIN SOD INJ 5000 UNIT/ML VIAL SC ×3 (05:18→20:09)
[2024-07-31] MEDS: BUMETANIDE INJ 0.25 MG/ML VIAL 4 ML 2 MG IVP (05:19)
[2024-07-31 06:15] LABS: Basophils # (Auto) 0.1 Thou/mm3 (0.0-0.2); Basophils % (Auto) 0 % (0-2.5); Eosinophils # (Auto) 0.8 Thou/mm3 (0.0-0.5); Eosinophils % (Auto) 2 % (0-10); Hematocrit 30.8 % (41.0-53.0); Hemoglobin 9.7 g/dL (13.5-16.0); Immature Granulocytes % (Auto) 4 % (0-0); Immature Granulocytes Auto 1.41 Thou/mm3 (0.00-0.00); Lymphocytes % (Auto) 5 % (10-50); Mean Corpuscular HGB Conc 31.5 g/dl (31.0-37.0); Mean Corpuscular Hemoglobin 26.9 pg (25.0-35.0); Mean Corpuscular Volume 86 fL (80-100); Monocytes # (Auto) 2.7 Thou/mm3 (0.0-0.8); Monocytes % (Auto) 7 % (0-12); Neutrophils % (Auto) 82 % (37-80); Nucleated Red Blood Cell % 0 /100 WBC (0); Platelet Count 303 Thou/mm3 (140-440); RDW Standard Deviation 48.2 fL (35.1-43.9)
[2024-07-31 06:23] LABS: White Blood Count 40.1 Thou/mm3 (3.8-10.6)
[2024-07-31 06:46] LABS: Alanine Aminotransferase 44 U/L (10-49); Albumin, Serum 3.7 gm/dL (3.4-4.8); Albumin/Globulin Ratio 1.3 (1.2-2.2); Alkaline Phosphatase 142 U/L (46-116); Anion Gap 7 (7-16); Aspartate Amino Transferase 31 U/L (0-34); BUN/Creatinine Ratio 28 Ratio (12-20); Bilirubin,Total 0.4 mg/dL (0.3-1.2); Blood Urea Nitrogen 28 mg/dL (9-23); Calcium 10.7 mg/dL (8.3-10.6); Calcium (Corrected) 10.9 mg/dL (8.5-10.1); Carbon Dioxide 38.9 mMol/L (20.0-31.0); Chloride 88 mMol/L (98-107); Estimated Creatinine Clearance 57.2 mL/min (>60); Globulin 2.9 gm/dL (2.3-3.5); Glucose 154 mg/dL (74-106); Magnesium 1.7 mg/dL (1.6-2.6); Osmolality,Calculated 276 (275-295); Potassium 3.6 mMol/L (3.4-5.1); Sodium 134 mMol/L (136-145); Total Protein 6.6 gm/dL (5.7-8.2); eGFR > 60 See Note
[2024-07-31] MEDS: Magnesium Sulfate 4 GM Ivpb 4 GM/50 ML BAG IV (07:31)
[2024-07-31] MEDS: POTASSIUM CHLORIDE 20 mEq TABCR 40 MEQ PO (07:31)
[2024-07-31] MEDS: HYDROcodone/APAP 5/325 TABLET 1 TAB PO (07:32)
[2024-07-31] MEDS: [UNRECOGNIZED DRUG - OTHER] BOTH EYES ×2 (09:51→20:09)
[2024-07-31] MEDS: DORZOLAMIDE BOTH EYES ×2 (09:51→20:09)
[2024-07-31] MEDS: ASPIRIN EC 81 MG TABEC PO (09:52)
[2024-07-31] MEDS: FLUCONAZOLE 100 MG TABLET 400 MG PO (09:52)
[2024-07-31] MEDS: cefTRIAXone/D5w 1gm IV premix 50 ML IV (09:52)
[2024-07-31] MEDS: TAMSULOSIN HCL 0.4 MG CAPSULE PO (09:52)
[2024-07-31] MEDS: lorataDINE 10 MG TABLET PO (09:52)
[2024-07-31] MEDS: DOCUSATE SOD 100 MG CAPSULE PO (09:52)
[2024-07-31] MEDS: guaiFENesin/DM 10 ML UDC PO ×2 (10:01→20:08)
--- NOTE | 2024-07-31 10:10 | PC.SS ---
Update: Plan is to continue to wean patient's oxygen level down. Patient receiving IV antibiotics. Possible d/c tomorrow.
--- NOTE | 2024-07-31 10:23 | XR_ITS ---
Examination: AP chest single view TECHNIQUE: AP portable upright chest single view Exam date and time: July 31, 2024 1027 hours Comparison July 24, 2024 INDICATIONS: Shortness of breath today. FINDINGS: Bilateral significant pneumonia Mild prominence left ventricle Moderate left pleural fluid Cardiac leads satisfactory position Moderate vascular congestion IMPRESSION: Significant bilateral pneumonia Moderate left pleural fluid
--- NOTE | 2024-07-31 10:50 | ESPR_ITS ---
<Statement entered by Flower Noyola MD - 08/01/24 13:30> I personally evaluated examined the patient appears to be clinically stable but still having shortness of breath fatigue general weakness require physical therapy evaluation. White count is persistently elevated which is quite puzzling but continue the antifungal drug therapy and medical management we will continue to monitor the patient closely evaluated the patient along with Dr. Coe PGY 2 agree with the treatment plan recommendation as documented Documentation for date of: 07/31/24 Subjective Subjective Interval history: Patient seen and assessed at bedside with daughter present. Patient states to be feeling about the same, O2 increased to 5 L nasal cannula. Patient states he is tired. Will continue with IV antibiotics and fluconazole, white count still elevated but patient not having any fevers. Discussed about discontinuing Mendez as it could also be a source of infection, but patient refused and states he would be unable to urinate on his own. Exam Vital Signs Temp Pulse Resp BP Pulse Ox O2 Del Method O2 Flow Rate 97.0 F 78 21 H 118/58 L 96 Nasal Cannula 2 07/31/24 08:00 07/31/24 08:00 07/31/24 08:00 07/31/24 08:00 07/31/24 08:00 07/31/24 08:00 07/31/24 08:00 FiO2 96 07/30/24 16:00 Narrative Exam GENERAL: Pleasant elderly male. NAD, AAOx3, hard of hearing CARDIO: Regular rate and rhythm, no murmurs, rubs, or gallops. PULM: Decreased breath sound left lower lobe. Clear right lower lobe. No wheezing, rhonchi or rales. GI: Abdomen soft, nondistended, no pain on palpation. EXT: +2 pitting lower extremity edema. Objective Labs 07/31/24 05:38 07/31/24 05:38 Labs: Laboratory Results - last 24 hr 07/31/24 05:38 WBC 40.1 H* RBC 3.60 L Hgb 9.7 L Hct 30.8 L MCV 86 MCH 26.9 MCHC 31.5 RDW Std Deviation 48.2 H Plt Count 303 Neut % (Auto) 82 H Lymph % (Auto) 5 L [place] % (Auto) 7 Eos % (Auto) 2 Baso % (Auto) 0 Neut # (Auto) 33.0 H Lymph # (Auto) 2.0 [place] # (Auto) 2.7 H Eos # (Auto) 0.8 H Baso # (Auto) 0.1 Immature Gran # (Auto) 1.41 H Absolute Nucleated RBC 0.00 Immature Gran % 4 H Nucleated RBC % 0 Smear Path Review Cancelled Sodium 134 L Potassium 3.6 Chloride 88 L Carbon Dioxide 38.9 H Anion Gap 7 BUN 28 H Creatinine 1.0 Estim Creat Clear Calc 57.2 L eGFR > 60 BUN/Creatinine Ratio 28 H Glucose 154 H Calculated Osmolality 276 Calcium 10.7 H Corrected Calcium 10.9 H Magnesium 1.7 Total Bilirubin 0.4 AST 31 ALT 44 Alkaline Phosphatase 142 H Total Protein 6.6 Albumin 3.7 Globulin 2.9 Albumin/Globulin Ratio 1.3 ABG Interpretation ABG results: 07/24/24 21:16 ABG pH 7.44 ABG pCO2 55 H ABG pO2 82 L ABG HCO3 37 H ABG O2 Saturation 97 ABG Base Excess 11 H Quality Measures Quality Measures none Advance care planning discussed with:: patient and child Assessment & Plan Assessment Current Active Medications: Generic Name Dose Route Start Last Admin Trade Name Freq PRN Reason Stop Dose Admin Acetaminophen 650 mg 07/24/24 17:23 07/25/24 01:33 Acetaminophen 325 Mg Tablet PO 08/23/24 17:22 650 mg Q6H PRN Administration Fever >100.5 Acetaminophen 650 mg 07/24/24 17:23 Acetaminophen 325 Mg Tablet PO 08/23/24 17:22 Q6H PRN PAIN SCALE 1-3 (mild Hydrocodone Bitart/Acetaminophen 1 tab 07/30/24 18:38 07/31/24 07:32 Hydrocodone/Apap 5/325 Tablet PO 08/04/24 05:48 1 tab Q6HR PRN Administration PAIN SCALE 4-6 (Moderate Hydrocodone Bitart/Acetaminophen 1 tab 07/30/24 18:38 Hydrocodone/Apap 7.5/325 Tablet PO 08/04/24 18:37 Q8HR PRN PAIN SCALE 7-10 (Severe Aspirin 81 mg 07/24/24 18:15 07/31/24 09:52 Aspirin Ec 81 Mg Tabec PO 08/23/24 18:14 81 mg QDAY VERITO Administration Atorvastatin Calcium 40 mg 07/24/24 21:00 07/30/24 20:28 Atorvastatin Calcium 20 Mg Tablet PO 08/23/24 20:59 40 mg HS VERITO Administration Bumetanide 2 mg 07/29/24 14:00 07/31/24 05:19 Bumetanide Inj 0.25 Mg/Ml Vial 4 Ml IVP 08/28/24 13:59 2 mg TID VERITO Administration Docusate Sodium 100 mg 07/25/24 09:00 07/31/24 09:52 Docusate Sod 100 Mg Capsule PO 08/24/24 08:59 100 mg QDAY VERITO Administration Protocol Dorzolamide/Timolol 1 drop 07/30/24 10:00 07/31/24 09:51 Dorzolamide/Timolol Op Tammy 10 Ml Btl BOTH EYES 08/29/24 09:59 1 drop BID VERITO Administration Fluconazole 400 mg 07/30/24 09:00 07/31/24 09:52 Fluconazole 100 Mg Tablet PO 08/06/24 08:59 400 mg QDAY VERITO Administration Guaifenesin/Dextromethorphan 10 ml 07/29/24 21:00 07/31/24 10:01 Guaifenesin/Dm 10 Ml Udc PO 08/28/24 20:59 10 ml BID VERITO Administration Protocol Heparin Sodium (Porcine) 5,000 unit 07/24/24 22:00 07/31/24 05:18 Heparin Sod Inj 5000 Unit/Ml Vial SC 08/07/24 21:59 5,000 unit Q8HR VERITO Administration Ceftriaxone Sodium/Dextrose 50 mls @ 100 mls/hr 07/30/24 07:50 07/31/24 09:52 Rocephin/D5w 1gm Iv Premix IV 08/06/24 07:49 100 mls/hr QDAY VERITO Administration Magnesium Sulfate 4 gm in 50 mls @ 12.5 mls/hr 07/31/24 06:56 07/31/24 07:31 Magnesium Sulfate Ivpb IV 07/31/24 10:55 12.5 mls/hr X1 ONE Administration Latanoprost 0 drop 07/30/24 21:00 07/30/24 20:35 Latanoprost Op Tammy 0.005% 2.5 Ml Btl BOTH EYES 08/29/24 20:59 Not Given QPM VERITO Levofloxacin 750 mg 07/29/24 09:00 07/29/24 09:24 Levofloxacin 250 Mg Tablet PO 08/05/24 08:59 750 mg QDAY VERITO Administration Loratadine 10 mg 07/28/24 10:30 07/31/24 09:52 Loratadine 10 Mg Tablet PO 08/27/24 10:29 10 mg QDAY VERITO Administration Losartan Potassium 50 mg 07/24/24 18:45 07/30/24 08:26 Losartan Potassium 25 Mg Tablet PO 08/23/24 18:44 Not Given QDAY VERITO Melatonin 6 mg 07/30/24 21:00 07/30/24 20:28 Melatonin 3 Mg Tablet PO 08/29/24 20:59 6 mg HS VERITO Administration Ondansetron HCl 4 mg 07/24/24 17:23 Ondansetron Inj 2 Mg/Ml Inj 2 Ml IV 08/23/24 17:22 Q6H PRN NAUSEA OR VOMITING Protocol Tamsulosin HCl 0.4 mg 07/24/24 17:45 07/31/24 09:52 Tamsulosin Hcl 0.4 Mg Capsule PO 08/23/24 17:44 0.4 mg QDAY VERITO Administration Plan Patient is an 89-year-old former smoker male with past medical history of hypertension, 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 Patient will be admitted due to acute hypoxic respiratory failure secondary to acute decompensated heart failure versus bilateral pneumonia. #HFpEF EF 60 to 65% Cardiac echo showing EF 60 to 65% with normal LV function and size Strict ins and outs and fluid restrictions Recent x-ray shows left pleural fluid again, would recommend a second thoracentesis to improve breathing Recommend to decrease diuresis to twice daily instead of 3 times daily given soft BPs Continue weaning off oxygen as able. #Acute hypoxic respiratory failure #Left-sided pleural effusion s/p thoracentesis #Sepsis secondary to bilateral pneumonia #Community-acquired pneumonia #Hypertension #Hyperlipidemia #CAD status post stents #Status post pacemaker #History of valve replacement #Benign prostatic hyperplasia #History of TURP procedure #Cocci #Left pleural effusion Continue management per primary team Case discussed with attending clay house worker Dr. Dennys Coe MD PGY3
--- NOTE | 2024-07-31 13:02 | PD.RESPRO ---
Documentation for date of: 07/31/24 Senior resident attestation: Patient evaluated and examined at the bedside, plan of care discussed with rest of the team including my attending physician, except as noted. The patient is a 89-year-old male admitted to the hospital for acute hypoxic respiratory failure, symptoms of orthopnea and PND, likely secondary to CHF exacerbation, as well as sepsis secondary to pneumonia. Patient has a history of bladder cancer recent surgery was done in June at a tertiary care center, patient tested positive for cocci, started on fluconazole. Started on IV diuresis with Bumex 2 mg twice daily, but diuresis below goal, will increase diuresis 2 mg 3 times daily. Appreciate cardio recommendations. 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 Also reported the patient had a PET scan following surgery which did not report metastasis in the lungs. Also noted patient's prior CT chest from April 08 which did not show infiltrates compared to the recent chest imaging. Will continue to treat for cocci, pending Legionella antigen. QT interval 383 ms as communicated by telemetry, will resume the patient on Levaquin to cover for atypicals. Went over patient's discharge summary from [facility] which showed patient had uncomplicated hospital course with VRE infection in the abdominal postop, as well as a recent PET scan in May which was negative for any evidence of metastasis to the lungs. Ordered CT chest abdomen pelvis to rule out any intra-abdominal abscesses Quresh PGY2 Subjective Subjective Interval history: Patient seen today at the bedside found awake, alert, orientedx3. No overnight events reported. Patient continues to report shortness of breath, he also states being tired. Daughter brought records from [facility] showed PET scan results which were negative. Vital signs stable at this time. Labs significant for continued uptrending WBCs, diuresis will be held for today. CXR was also ordered showed bilateral pneumonia, and left sided pleural effusions. Exam Vital Signs Temp Pulse Resp BP Pulse Ox O2 Del Method O2 Flow Rate 97.1 F 69 12 114/59 L 96 Nasal Cannula 4.5 07/31/24 12:00 07/31/24 12:00 07/31/24 12:00 07/31/24 12:00 07/31/24 12:00 07/31/24 12:00 07/31/24 12:00 FiO2 96 07/30/24 16:00 Narrative Exam Physical Exam GENERAL: NAD, AAOx3, hard of hearing HEENT: Moist mucosa. Eyes open, symmetrical, & clear CARDIO: Heart RRR, no obvious murmurs PULM: No noted coughing, +dyspnea, decreased BS on the left GI: Abdomen soft, nondistended, no pain on palpation. BSx4 SKIN/MSK/EXT: +2 pitting lower extremity edema, no pain on palpation. Sacral wound pedal pulses present B/L NEURO: AAOx3, no focal neuro deficits, able to move all 4 extremities Objective Labs 08/01/24 05:24 08/01/24 05:24 Labs: Laboratory Results - last 24 hr 07/31/24 05:38 WBC 40.1 H* RBC 3.60 L Hgb 9.7 L Hct 30.8 L MCV 86 MCH 26.9 MCHC 31.5 RDW Std Deviation 48.2 H Plt Count 303 Neut % (Auto) 82 H Lymph % (Auto) 5 L [place] % (Auto) 7 Eos % (Auto) 2 Baso % (Auto) 0 Neut # (Auto) 33.0 H Lymph # (Auto) 2.0 [place] # (Auto) 2.7 H Eos # (Auto) 0.8 H Baso # (Auto) 0.1 Immature Gran # (Auto) 1.41 H Absolute Nucleated RBC 0.00 Immature Gran % 4 H Nucleated RBC % 0 Smear Path Review Cancelled Sodium 134 L Potassium 3.6 Chloride 88 L Carbon Dioxide 38.9 H Anion Gap 7 BUN 28 H Creatinine 1.0 Estim Creat Clear Calc 57.2 L eGFR > 60 BUN/Creatinine Ratio 28 H Glucose 154 H Calculated Osmolality 276 Calcium 10.7 H Corrected Calcium 10.9 H Magnesium 1.7 Total Bilirubin 0.4 AST 31 ALT 44 Alkaline Phosphatase 142 H Total Protein 6.6 Albumin 3.7 Globulin 2.9 Albumin/Globulin Ratio 1.3 ABG Interpretation ABG results: 07/24/24 21:16 ABG pH 7.44 ABG pCO2 55 H ABG pO2 82 L ABG HCO3 37 H ABG O2 Saturation 97 ABG Base Excess 11 H Quality Measures Quality Measures none Advance care planning discussed with:: patient and child Assessment & Plan Assessment Current Active Medications: Generic Name Dose Route Start Last Admin Trade Name Freq PRN Reason Stop Dose Admin Acetaminophen 650 mg 07/24/24 17:23 07/25/24 01:33 Acetaminophen 325 Mg Tablet PO 08/23/24 17:22 650 mg Q6H PRN Administration Fever >100.5 Acetaminophen 650 mg 07/24/24 17:23 Acetaminophen 325 Mg Tablet PO 08/23/24 17:22 Q6H PRN PAIN SCALE 1-3 (mild Hydrocodone Bitart/Acetaminophen 1 tab 07/30/24 18:38 07/31/24 07:32 Hydrocodone/Apap 5/325 Tablet PO 08/04/24 05:48 1 tab Q6HR PRN Administration PAIN SCALE 4-6 (Moderate Hydrocodone Bitart/Acetaminophen 1 tab 07/30/24 18:38 Hydrocodone/Apap 7.5/325 Tablet PO 08/04/24 18:37 Q8HR PRN PAIN SCALE 7-10 (Severe Aspirin 81 mg 07/24/24 18:15 07/31/24 09:52 Aspirin Ec 81 Mg Tabec PO 08/23/24 18:14 81 mg QDAY VERITO Administration Atorvastatin Calcium 40 mg 07/24/24 21:00 07/30/24 20:28 Atorvastatin Calcium 20 Mg Tablet PO 08/23/24 20:59 40 mg HS VERITO Administration Bumetanide 2 mg 07/29/24 14:00 07/31/24 05:19 Bumetanide Inj 0.25 Mg/Ml Vial 4 Ml IVP 08/28/24 13:59 2 mg TID VERITO Administration Docusate Sodium 100 mg 07/25/24 09:00 07/31/24 09:52 Docusate Sod 100 Mg Capsule PO 08/24/24 08:59 100 mg QDAY VERITO Administration Protocol Dorzolamide/Timolol 1 drop 07/30/24 10:00 07/31/24 09:51 Dorzolamide/Timolol Op Tammy 10 Ml Btl BOTH EYES 08/29/24 09:59 1 drop BID VERITO Administration Fluconazole 400 mg 07/30/24 09:00 07/31/24 09:52 Fluconazole 100 Mg Tablet PO 08/06/24 08:59 400 mg QDAY VERITO Administration Guaifenesin/Dextromethorphan 10 ml 07/29/24 21:00 07/31/24 10:01 Guaifenesin/Dm 10 Ml Udc PO 08/28/24 20:59 10 ml BID VERITO Administration Protocol Heparin Sodium (Porcine) 5,000 unit 07/24/24 22:00 07/31/24 05:18 Heparin Sod Inj 5000 Unit/Ml Vial SC 08/07/24 21:59 5,000 unit Q8HR VERITO Administration Ceftriaxone Sodium/Dextrose 50 mls @ 100 mls/hr 07/30/24 07:50 07/31/24 09:52 Rocephin/D5w 1gm Iv Premix IV 08/06/24 07:49 100 mls/hr QDAY VERITO Administration Latanoprost 0 drop 07/30/24 21:00 07/30/24 20:35 Latanoprost Op Tammy 0.005% 2.5 Ml Btl BOTH EYES 08/29/24 20:59 Not Given QPM VERITO Levofloxacin 750 mg 07/29/24 09:00 07/29/24 09:24 Levofloxacin 250 Mg Tablet PO 08/05/24 08:59 750 mg QDAY VERITO Administration Loratadine 10 mg 07/28/24 10:30 07/31/24 09:52 Loratadine 10 Mg Tablet PO 08/27/24 10:29 10 mg QDAY VERITO Administration Losartan Potassium 50 mg 07/24/24 18:45 07/31/24 09:08 Losartan Potassium 25 Mg Tablet PO 08/23/24 18:44 Not Given QDAY VERITO Melatonin 6 mg 07/30/24 21:00 07/30/24 20:28 Melatonin 3 Mg Tablet PO 08/29/24 20:59 6 mg HS VERITO Administration Ondansetron HCl 4 mg 07/24/24 17:23 Ondansetron Inj 2 Mg/Ml Inj 2 Ml IV 08/23/24 17:22 Q6H PRN NAUSEA OR VOMITING Protocol Tamsulosin HCl 0.4 mg 07/24/24 17:45 07/31/24 09:52 Tamsulosin Hcl 0.4 Mg Capsule PO 08/23/24 17:44 0.4 mg QDAY VERITO Administration Plan 89-year-old former smoker male with past medical history of hypertension, congestive heart failure, hyperlipidemia who presented to the ED from Dr. Noyola's office due to shortness of breath. Patient will be admitted due to acute hypoxic respiratory failure secondary to acute decompensated heart failure versus bilateral pneumonia. #Acute hypoxic respiratory failure #Left-sided pleural effusion # HFpEF 60-65% #Pulmonary embolism-ruled out Patient has been having progressive shortness of breath for the past few days, patient endorses orthopnea BNP within normal limits, troponins negative Patient has extensive cardiac history including coronary artery disease with stent placement, congestive heart failure, hypertension, pacemaker placement, valve replacement Chest x-ray was done showed left-sided pleural effusion D-dimer was found to be more than 3820, CTA was ordered however patient was unable to lay flat so study was unable to be done, will likely need some diuresis and later perform study Ultrasound left side of the chest was done, ultrasound of the lower extremities was done negative for DVT Echo showed Normal LV size and function. Mild LVH. Estimated EF 60-65%. Normal RV size and function. Aortic bioprothetic valve mean gradient 4mmHg, vmax 1.5m/s. Trace TR. Large pleural effusion present. Patient underwent left-sided thoracentesis approximately 2 L of fluid removed. Postprocedure chest x-ray does not show much improvement will place patient on BiPAP at this time. CTA chest negative for pulmonary emboli CXR shows left sided pleural effusion -Bumex 2 mg IV three times daily -Strict ins and outs -Fluid restriction 1200 mL -Daily weights -BiPAP ?Pleural fluid culture still pending, continue with antibiotic therapy -Keep potassium above 4, magnesium above 2 -Cardiology Dr. Noyola consulted and appreciate recommendations #Sepsis secondary to bilateral pneumonia #Community-acquired pneumonia #Cocci Pneumonia Admission patient had leukocytosis, tachycardia, tachypnea 3 out of 4 SIRS criteria with endorgan damage lung Patient had a cold a few weeks ago and then a few days ago started developing a cough with shortness of breath has been progressing till arrival here in the ED. Sepsis 30 cc/kg not given due to likely CHF exacerbation Lactic acid normal, Pro-Brandt 1.02 Blood cultures negative in 24 hours, urine culture is negative RSV negative, COVID-negative, flu negative Blood cultures negative in 24hours CXR showed bilateral pneumonia -Levofloxacin on hold -On ceftriaxone -Diflucan 400mg -Follow-up Legionella, Aspergillus -Follow-up urine cultures -Sputum cultures pending -ID, Dr. Davis consulted, appreciate recommendations #Hypertension #Hyperlipidemia #CAD status post stents #Status post pacemaker #History of valve replacement #QT prolongation Patient takes simvastatin 40 mg and baby aspirin EKG was done showed QTc 505 -Hold QT prolonging agents -Resumed aspirin 81 mg daily -On losartan 50 mg daily -Atorvastatin 40 mg daily #Benign prostatic hyperplasia #History of TURP procedure -Resume Flomax 0.4 mg daily #Sacral wound On physical exam noted to have sacral wound possibly grade 1 -Wound care ordered Case discussed with my senior Dr. Bocanegra PGY-[address] Blanco Graff MD PGY-1 Disposition: Telemetry Fluids: None Feeding: Cardiac diet Thrombo prophylaxis: Heparin Gastric Ulcer prophylaxis: Not indicated CODE STATUS: DNR Attending Provider Attestation/Addendum Karen, Mayra Simeon, DO, attest that I was physically present for the ca portions of the service and evaluated the patient with the resident and I reviewed and discussed the case with the resident and agree with the resident's findings and plans of care as documented above Patient seen and evaluated this AM. Patient states he is very tired, no acute events overnight. Currently on 2L/NC. WBCs uptrending, but patient has been afebrile. Leukocytosis may be reactive/inflammatory in response to malignancy versus infection. Will decrease diuretic interval to once a day as b/l LE edema appears improved. Will request records from [facility] as well. Repeat CXR shows improvement of b/l congestion. Will order CT chest/abdomen and pelvis to further evaluate any other possible sources of infection.
--- NOTE | 2024-07-31 14:46 | XR_ITS ---
Examination: CT chest with intravenous contrast CT abdomen with intravenous contrast CT pelvis with intravenous contrast 2-D coronal and sagittal reconstructions Time of exam: July 31, [address] chest July 26, 2024 Indications: Diagnosis bladder cancer, status post surgery, lower abdominal pain today, shortness of breath chest pain this week CTDI: vol (mGy) : 10.1 DLP: (mGycm): 827 Technique: Multiple axial images of the chest, abdomen and pelvis with intravenous contrast, 3.0 mm slice thickness. Images obtained post intravenous injection Isovue 370 60 cc. 2-D sagittal and coronal reconstructions. Low dose protocols were performed. One or more of the following dose reduction techniques were used; automated exposure control, adjustment of the mA and/or KV according to patient size, use of iterative reconstruction technique. Findings: Enlarged left thyroid lobe No thoracic aortic aneurysmal dilatation No pulmonary artery emboli Heavy calcification left anterior descending coronary artery Multiple high periaortic lymph nodes, the largest 19 mm Pretracheal lymph node 12 mm and 6 mm Mild bilateral hilar lymphadenopathy Extensive bilateral pneumonia with prominent vascular congestion Enlarged cardiac contour Prosthetic aortic valve Atelectasis left lower lobe Moderate left mild right pleural effusion Liver is irregular in contour Absent gallbladder Spleen is not enlarged No pancreatic or adrenal mass Perinephric stranding No hydronephrosis 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, infrarenal aorta, axial image 219, sagittal image 110, the dissection extends into the right common iliac artery axial image 232 No bowel obstruction No pericecal inflammatory change 3 cm umbilical hernia defect containing colon but no incarcerated bowel Colonic diverticulosis Large right pelvic cystic mass, 10.5 x 6.4 cm Contracted urinary bladder around a Mendez catheter Mass like area anterior margin of the urinary bladder, axial image 287 measuring up to 3.6 cm in thickness Abundant stool in the rectum Diffuse moderate to advanced thoracic and lumbar degenerative disc disease with grade 1 anterolisthesis L5 on S1 Impression: Mediastinal lymphadenopathy as above Extensive bilateral pneumonia Mild associated heart failure Moderate left pleural effusion Primary hepatocellular disease Limited likely chronic lower abdominal aortic dissection with localized aneurysmal dilatation of the abdominal aorta, transverse dimension 3.7 cm, the dissection extends into the right common iliac artery 3 cm umbilical hernia defect containing colon but no incarcerated bowel Large cystic mass right pelvis 10.5 x 6.4 cm, clinical correlation advised Markedly abnormal urinary bladder, masslike area at the anterior margin of the urinary bladder measuring up to 3.6 cm in thickness Recommend pelvic sonography urinary bladder sonography follow-up
--- NOTE | 2024-07-31 16:03 | EKG_ITS ---
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
[2024-07-31 16:28] LABS: Misc Send Out* See Sep Rpt
[2024-07-31 16:51] LABS: Sed Rate (ESR) 56 mm/hr (0-20)
[2024-07-31] MEDS: LORazepam 2 MG/ML VIAL 0.5 MG IVP (17:44)
[2024-07-31 17:53] LABS: C-Reactive Protein 27.2 mg/dL (0.0-0.9)
--- NOTE | 2024-07-31 18:52 | PC.RT ---
PT not in room at this time, PT in CT.
[2024-07-31] MEDS: ATORVASTATIN CALCIUM 20 MG TABLET 40 MG PO (20:08)
[2024-07-31] MEDS: MELATONIN 3 MG TABLET 6 MG PO (20:08)
[2024-07-31] MEDS: LATANOPROST OP SOL 0.005% 2.5 ML BTL BOTH EYES (20:09)
[2024-07-31] MEDS: ALBUTEROL/IPRATROPIUM (Duoneb) RT SOL 3 ML NEBU INH (22:33)
[2024-08-01] VITALS (13 sets, daily range): BP systolic 105–133; BP diastolic 48–65; PULSE 71–97; RESP 13–25; TEMP 36–36.4; O2SAT 90–100; BMI 29.7; BMI 14.0
[2024-08-01 02:23] LABS: Carcinoembryonic Antigen 2.1 ng/mL (0.0-5.0)
[2024-08-01] MEDS: ACETAMINOPHEN 325 MG TABLET 650 MG PO ×3 (03:54→21:41)
[2024-08-01 06:06] LABS: Basophils % (Auto) 0 % (0-2.5); Eosinophils # (Auto) 0.6 Thou/mm3 (0.0-0.5); Eosinophils % (Auto) 2 % (0-10); Hemoglobin 8.9 g/dL (13.5-16.0); Immature Granulocytes % (Auto) 4 % (0-0); Lymphocytes # (Auto) 1.5 Thou/mm3 (1.0-4.8); Lymphocytes % (Auto) 4 % (10-50); Mean Corpuscular HGB Conc 31.8 g/dl (31.0-37.0); Mean Corpuscular Hemoglobin 27.1 pg (25.0-35.0); Mean Corpuscular Volume 85 fL (80-100); Monocytes # (Auto) 2.4 Thou/mm3 (0.0-0.8); Monocytes % (Auto) 7 % (0-12); Neutrophils # (Auto) 31.6 Thou/mm3 (1.8-7.7); Neutrophils % (Auto) 84 % (37-80); Nucleated Red Blood Cell % 0 /100 WBC (0); Platelet Count 324 Thou/mm3 (140-440); RDW Standard Deviation 47.8 fL (35.1-43.9); Red Blood Count 3.29 Miln/mm3 (4.50-5.90)
[2024-08-01 06:07] LABS: White Blood Count 37.4 Thou/mm3 (3.8-10.6)
[2024-08-01 06:23] LABS: Alanine Aminotransferase 45 U/L (10-49); Albumin, Serum 3.3 gm/dL (3.4-4.8); Albumin/Globulin Ratio 1.2 (1.2-2.2); Alkaline Phosphatase 134 U/L (46-116); Anion Gap 5 (7-16); Aspartate Amino Transferase 32 U/L (0-34); BUN/Creatinine Ratio 31 Ratio (12-20); Bilirubin,Total 0.3 mg/dL (0.3-1.2); Blood Urea Nitrogen 28 mg/dL (9-23); Calcium 10.8 mg/dL (8.3-10.6); Calcium (Corrected) 11.4 mg/dL (8.5-10.1); Carbon Dioxide 37.8 mMol/L (20.0-31.0); Chloride 90 mMol/L (98-107); Creatinine (Component) 0.9 mg/dL (0.6-1.3); Estimated Creatinine Clearance 63.4 mL/min (>60); Globulin 2.8 gm/dL (2.3-3.5); Glucose 171 mg/dL (74-106); Magnesium 2.3 mg/dL (1.6-2.6); Osmolality,Calculated 275 (275-295); Potassium 3.6 mMol/L (3.4-5.1); Sodium 133 mMol/L (136-145); Total Protein 6.1 gm/dL (5.7-8.2); eGFR > 60 See Note
[2024-08-01] MEDS: ALBUTEROL/IPRATROPIUM (Duoneb) RT SOL 3 ML NEBU INH ×4 (06:40→20:54)
[2024-08-01 07:11] LABS: Legionella Ag, EIA, Urine* NOT DETECTED
[2024-08-01] MEDS: POTASSIUM CHLORIDE 10% 20 MEQ/15 ML UDC 40 MEQ PO (07:19)
--- NOTE | 2024-08-01 07:53 | ESPR_ITS ---
Subjective Subjective Interval history: wbc falling slightly. hx of ca, so that by itself often raises the procal. cx all neg. on rx for pneumonia. was on a quinolone for possible legionella, but that was changed by others to rocephin.flucon added for possible cocci in a man who does not get outside much. Exam Vital Signs Temp Pulse Resp BP Pulse Ox O2 Del Method O2 Flow Rate 97.3 F 80 22 H 105/48 L 97 Nasal Cannula 4 08/01/24 04:00 08/01/24 06:41 08/01/24 06:41 08/01/24 04:00 08/01/24 06:41 08/01/24 04:00 08/01/24 06:41 FiO2 96 07/30/24 16:00 Narrative Exam limited visit Objective - Internal Medicine Labs 08/01/24 05:24 08/01/24 05:24 Labs: Laboratory Results - last 24 hr 07/28/24 07/31/24 07/31/24 10:50 05:38 15:52 WBC RBC Hgb Hct MCV MCH MCHC RDW Std Deviation Plt Count Neut % (Auto) Lymph % (Auto) [place] % (Auto) Eos % (Auto) Baso % (Auto) Neut # (Auto) Lymph # (Auto) [place] # (Auto) Eos # (Auto) Baso # (Auto) Immature Gran # (Auto) Absolute Nucleated RBC Immature Gran % Nucleated RBC % Smear Path Review Cancelled Cancelled ESR Cancelled Sodium Potassium Chloride Carbon Dioxide Anion Gap BUN Creatinine Estim Creat Clear Calc eGFR BUN/Creatinine Ratio Glucose Calculated Osmolality Calcium Corrected Calcium Magnesium Total Bilirubin AST ALT Alkaline Phosphatase C-Reactive Prot, Quant Total Protein Albumin Globulin Albumin/Globulin Ratio Carcinoembryonic Ag CA 125 Antigen Urine Legionella Ag NOT DETECTED 07/31/24 08/01/24 15:52 05:24 WBC 37.4 H* RBC 3.29 L Hgb 8.9 L Hct 28.0 L MCV 85 MCH 27.1 MCHC 31.8 RDW Std Deviation 47.8 H Plt Count 324 Neut % (Auto) 84 H Lymph % (Auto) 4 L [place] % (Auto) 7 Eos % (Auto) 2 Baso % (Auto) 0 Neut # (Auto) 31.6 H Lymph # (Auto) 1.5 [place] # (Auto) 2.4 H Eos # (Auto) 0.6 H Baso # (Auto) 0.0 Immature Gran # (Auto) 1.30 H Absolute Nucleated RBC 0.00 Immature Gran % 4 H Nucleated RBC % 0 Smear Path Review Cancelled ESR 56 H Sodium 133 L Potassium 3.6 Chloride 90 L Carbon Dioxide 37.8 H Anion Gap 5 L BUN 28 H Creatinine 0.9 Estim Creat Clear Calc 63.4 eGFR > 60 BUN/Creatinine Ratio 31 H Glucose 171 H Calculated Osmolality 275 Calcium 10.8 H Corrected Calcium 11.4 H Magnesium 2.3 Total Bilirubin 0.3 AST 32 ALT 45 Alkaline Phosphatase 134 H C-Reactive Prot, Quant 27.2 H Total Protein 6.1 Albumin 3.3 L Globulin 2.8 Albumin/Globulin Ratio 1.2 Carcinoembryonic Ag 2.1 CA 125 Antigen 127.0 H Urine Legionella Ag ABG Interpretation ABG results: 07/24/24 21:16 ABG pH 7.44 ABG pCO2 55 H ABG pO2 82 L ABG HCO3 37 H ABG O2 Saturation 97 ABG Base Excess 11 H Assessment & Plan A&P Narrative pneumonia with normal bnp on arrival, pos cocci IgM locally from 07/28 noted. hld hx of skin CA and prostate ca on biopsy tissue per daughter in [place]. O2 added for sats in the mid 's pleural fluid analysis with mostly rbc's. relatively few wbc note that pt is dnr. so heed the guidance. will check in again on Sunday. note that this could also be CA related. cocci now in ddx too, but does not get out much, so may be false pos unlikely to have data from [facility] till next week. legionella ag neg but is limited to one serotype. ok to screen for other things. is going to live with daughter moving forward in [place]. 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 so chest issue may also be metastatic. sadly the only good pleural eval is a positive one. wbc elevation may be multifactorial. current rx empirical. and pt afebrile. imaging noted. will look in again sunday. wbc more impressive than vitals here so far Time Spent With Patient Time: Total time spent is greater than 50% in coordination of care (as documented) at patient's floor/unit and/or counseling patient:
[2024-08-01] MEDS: cefTRIAXone/D5w 1gm IV premix 50 ML IV (08:12)
[2024-08-01] MEDS: guaiFENesin/DM 10 ML UDC PO ×2 (08:12→20:22)
[2024-08-01] MEDS: ASPIRIN EC 81 MG TABEC PO (08:13)
[2024-08-01] MEDS: lorataDINE 10 MG TABLET PO (08:13)
[2024-08-01] MEDS: TAMSULOSIN HCL 0.4 MG CAPSULE PO (08:13)
[2024-08-01] MEDS: DORZOLAMIDE BOTH EYES ×2 (08:13→20:25)
[2024-08-01] MEDS: FLUCONAZOLE 100 MG TABLET 400 MG PO (08:13)
[2024-08-01] MEDS: [UNRECOGNIZED DRUG - OTHER] BOTH EYES ×2 (08:13→20:25)
[2024-08-01] MEDS: DOCUSATE SOD 100 MG CAPSULE PO (08:13)
[2024-08-01] MEDS: BENZONATATE 100 MG CAPSULE PO ×3 (10:04→21:40)
--- NOTE | 2024-08-01 11:20 | ESCONSULT_ITS ---
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 Patient was referred to medical oncologist Dr. Dewitt in [place] who was initiating a metastatic workup including PSMA PET scan not yet performed. Patient appeared to be improving clinically with supportive care and antibiotics but WBC stays quite elevated in the 30,000 + range. Being followed by Dr Davis of infectious disease. Chest abdomen pelvis 07/31/2024 reveals extensive bilateral pneumonia mediastinal lymphadenopathy mild associated heart failure moderate left pleural effusion primary hepatocellular disease likely chronic lower abdominal aortic dissection large cystic mass of right pelvis 10.5 x 6.4 cm and markedly abnormal urinary bladder masslike at the anterior margin urinary bladder measuring up to 3.6 cm in thickness. Patient now referred for oncological consultation. Tumor marker CA125 127 PSA 54 CEA 2.1 and CA 19?9 pending. cc:: cc: Mayra Simeon DO Past Medical History Family History OTHER FAMILY HX: Cardiac history of father passing away at age 55 of [place] Social History SOCIAL: Never smoker resident of [place] plans to move to be daughter in [place] soon. Past Medical History Comments PMH COMMENT: 1. History of cardiac disorders cardiac arrhythmia 2. Recent pelvic surgeries diagnosed in squamous CA the bladder and prostate cancer with lymph node mets. Meds Home Medications and Allergies Home Medications ?Medication ?Instructions ?Recorded ?Confirmed ?Type simvastatin 40 mg tablet (Zocor) 20 mg PO HS #0 tabs 07/22/15 07/25/24 History tamsulosin 0.4 mg capsule 0.4 mg PO QHS 05/02/24 07/25/24 History aspirin 81 mg tablet,delayed 81 mg PO QDAY 07/25/24 07/25/24 History release bumetanide 1 mg tablet 1 mg PO DAILY 07/25/24 07/25/24 History latanoprost 0.005 % eye drops 1 drp ophthalmic (eye) QPM 07/25/24 07/25/24 History losartan 50 mg tablet 50 mg PO DAILY 07/25/24 07/25/24 History potassium chloride 20 mEq 20 meq PO DAILY 07/25/24 07/25/24 History tablet,extended release(part/cryst) sitagliptin phosphate 50 mg tablet 50 mg PO QDAY 07/25/24 07/25/24 History (Januvia) spironolactone 25 mg tablet 25 mg PO QDAY 07/25/24 07/25/24 History (Aldactone) dorzolamide 22.3 mg-timolol 6.8 1 drp ophthalmic (eye) BID 07/30/24 07/30/24 History mg/mL eye drops (Cosopt) Allergies Allergy/AdvReac Type Severity Reaction Status Date / Time clopidogrel [From Plavix] Allergy Mild Rash Verified 07/24/24 14:09 Penicillins Allergy Verified 07/24/24 14:09 Exam Vital Signs Temp Pulse Resp BP Pulse Ox O2 Del Method O2 Flow Rate 96.8 F 77 21 H 111/51 L 99 Nasal Cannula 4 08/01/24 08:00 08/01/24 11:08 08/01/24 11:08 08/01/24 08:39 08/01/24 11:08 08/01/24 08:00 08/01/24 11:08 FiO2 96 07/30/24 16:00 Narrative Exam Appearing comfortable and communicative Results Labs 08/01/24 05:24 08/01/24 05:24 Labs: Short CBC 08/01/24 Range/Units 05:24 WBC 37.4 H* (3.8-10.6) Thou/mm3 Hgb 8.9 L (13.5-16.0) g/dL Hct 28.0 L (41.0-53.0) % Plt Count 324 (140-440) Thou/mm3 BMP 08/01/24 05:24 Sodium 133 L Potassium 3.6 Chloride 90 L Carbon Dioxide 37.8 H BUN 28 H Creatinine 0.9 Glucose 171 H Calcium 10.8 H Liver Function 08/01/24 Range/Units 05:24 Total Bilirubin 0.3 (0.3-1.2) mg/dL AST 32 (0-34) U/L ALT 45 (10-49) U/L Alkaline Phosphatase 134 H (46-116) U/L Albumin 3.3 L (3.4-4.8) gm/dL ABG Interpretation ABG results: 07/24/24 21:16 ABG pH 7.44 ABG pCO2 55 H ABG pO2 82 L ABG HCO3 37 H ABG O2 Saturation 97 ABG Base Excess 11 H Assessment and Plan Additional Assessment & Plan Additional Plan: 1. Admitted with respiratory failure pneumonia sepsis, followed by Dr. Davis of infectious disease improving with supportive care. 2. Complicated cancer with squamous SCCA of bladder and metastatic adenocarcinoma pelvic lymph nodes from prostate primary following 2 pelvic surgeries done at [facility] in April and May 2024. 3. Recently saw medical oncologist Dr. Dewitt in [place] who .has scheduled patient for PMSA PET which is more specific for prostate cancer mets. Reportedly is planning ADT with Lupron and antiandrogen soon. 4. Patient hopes to move to [place] once condition stabilized. I will follow him during his current admission.
--- NOTE | 2024-08-01 12:03 | PC.SS ---
DINING SERVICE WORKER informed bedside nurse of need to conduct room air evaluation on behalf of the patient to determine if patient meets need for home oxygen.
--- NOTE | 2024-08-01 13:25 | EVENTNT_ITS ---
Documentation for date of: 08/01/24 Event Note Event Note: Patient seen and evaluated this AM. Patient complains of feeling more fatigued and increased dry cough. WBCs downtrending. CT chest/abd/pelvis done last night revealed Mediastinal lymphadenopathy.Extensive bilateral pneumonia. Mild associated heart failure. Moderate left pleural effusion. Primary hepatocellular disease. 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 3 cm umbilical hernia defect containing colon but no incarcerated bowel. Large cystic mass right pelvis 10.5 x 6.4 cm, clinical correlation advised. Markedly abnormal urinary bladder, masslike area at the anterior margin of the urinary bladder measuring up to 3.6 cm in thickness. Results were reviewed with patient's daughter. He is currently on 4L/NC. Oncology consulted due to CT findings. Daughter states that cystic mass in right pelvis was not known. Records from [facility] were obtained from patient's daughter. 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 Bladder otherwise without tumors. Moderate- severe trabeculations. Small bladder stone [facility] hospitalization course: Patient had been admitted from May 16, 2024 to May 26, 2024 during which patient underwent a diverticulectomy/partial cystectomy and ventral hernia repair with mesh by urology. Patient required a repeat laparoscopic assisted repair of recurrent ventral hernia with mesh placement on 05/21/2024. Hospital stay was complicated by hyponatremia, postop ileus and spontaneous bacterial peritonitis due to Enterococcus faecium and UTI due to Staphylococcus lugdunensis. 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 Portion of vascular structure present Comment: Carcinoma in the bladder diverticulum is a keratinizing squamous cell carcinoma. The metastatic carcinoma is seen with the right pelvic lymph node has a histologic appearance of an adenocarcinoma staining of adequate no carcinoma is positive for pancytokeratin, PSA and NKX3.1 and negative for GA TA 3, CDX2, CK7, p63, TTF-1?1, CK20, chromogranin, synaptophysin and uroplakin 3. These findings support a prostatic origin of the adenocarcinoma and makes origin from bladder, colon or lung unlikely PET Scan 06/04/24: expected appearance after laparotomy and partial bladder resection with placement of b/l nephroureteral stents. Inflammatory changes noted in lower anterior abdominal wall laparotomy area with drain in place as expected postsurgically. Frothy material and increased FDG avidity below may indicate infection and or dehiscence/ Markedly FDG avid prostate lesion concerning for carcinoma. FDG avid right pelvic sidewall LN concerning for metastasis. Rest of records pending from [facility]. High suspicion that leukocytosis may be 2/2 malignancy. Continue with current management otherwise. WIll f/u with oncology recommendations
--- NOTE | 2024-08-01 13:25 | PC.NURSE ---
Patient was saturating at 93% oxygen while on 4 liters nasal cannula at rest. At rest while not on oxygen, patient desated and maintained at 87%. Once nasal cannula was reapplied with 4 liters, patient returned to 93%.
--- NOTE | 2024-08-01 13:42 | PD.RESPRO ---
Documentation for date of: 08/01/24 Senior resident attestation: The patient is a 89-year-old male admitted to the hospital for acute hypoxic respiratory failure, symptoms of orthopnea and PND, likely secondary to CHF exacerbation, as well as sepsis secondary to pneumonia. Patient has a history of bladder cancer recent surgery was done in June at a tertiary care center, patient tested positive for cocci, started on fluconazole. Started on IV diuresis with Bumex 2 mg twice daily, but diuresis below goal, will increase diuresis 2 mg 3 times daily. Appreciate cardio recommendations. 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 Also reported the patient had a PET scan following surgery which did not report metastasis in the lungs. Also noted patient's prior CT chest from April 08 which did not show infiltrates compared to the recent chest imaging. Went over patient's discharge summary from [facility] which showed patient had uncomplicated hospital course with VRE infection in the abdominal postop, as well as a recent PET scan in May which was negative for any evidence of metastasis to the lungs. Ordered CT chest abdomen pelvis to rule out any intra-abdominal abscesses #Coccidiomycosis #Severe bilateral pneumonia #History of bladder cancer s/p TURP #Pleural effusion Patient evaluated and examined at the bedside, plan of care discussed with rest of the team including my attending physician, except as noted. Quresh PGY2 Subjective Subjective Interval history: Patient seen today at the bedside fine awake, alert, oriented x 3. No overnight events reported. Vital signs stable at this time. Labs significant for downtrending WBCs 37.4 today, however there is still concern for malignancy consulted Dr. Stubbs oncology as patient has history of bladder cancer, skin cancer and metastasis to lymph nodes. Antibiotic therapy added doxycycline 100 mg twice daily. Patient continues to complain of shortness of breath incentive spirometry and DuoNebs every 4 hours scheduled ordered as well as BiPAP at night. Diuresis will be adjusted to Bumex 2 mg twice daily. Exam Vital Signs Temp Pulse Resp BP Pulse Ox O2 Del Method O2 Flow Rate 97.0 F 75 19 114/58 L 100 Nasal Cannula 3 08/01/24 12:00 08/01/24 12:00 08/01/24 12:00 08/01/24 12:00 08/01/24 12:00 08/01/24 12:00 08/01/24 12:00 FiO2 96 07/30/24 16:00 Narrative Exam Physical Exam GENERAL: NAD, AAOx3, hard of hearing HEENT: Moist mucosa. Eyes open, symmetrical, & clear CARDIO: Heart RRR, no obvious murmurs PULM: No noted coughing, +dyspnea, decreased BS on the left GI: Abdomen soft, nondistended, no pain on palpation. BSx4 SKIN/MSK/EXT: +2 pitting lower extremity edema, no pain on palpation. Sacral wound pedal pulses present B/L NEURO: AAOx3, no focal neuro deficits, able to move all 4 extremities Objective Labs 08/02/24 04:42 08/02/24 04:42 Labs: Laboratory Results - last 24 hr 07/28/24 07/31/24 07/31/24 10:50 15:52 15:52 WBC RBC Hgb Hct MCV MCH MCHC RDW Std Deviation Plt Count Neut % (Auto) Lymph % (Auto) [place] % (Auto) Eos % (Auto) Baso % (Auto) Neut # (Auto) Lymph # (Auto) [place] # (Auto) Eos # (Auto) Baso # (Auto) Immature Gran # (Auto) Absolute Nucleated RBC Immature Gran % Nucleated RBC % Smear Path Review Cancelled ESR Cancelled 56 H Sodium Potassium Chloride Carbon Dioxide Anion Gap BUN Creatinine Estim Creat Clear Calc eGFR BUN/Creatinine Ratio Glucose Calculated Osmolality Calcium Corrected Calcium Magnesium Total Bilirubin AST ALT Alkaline Phosphatase C-Reactive Prot, Quant 27.2 H Total Protein Albumin Globulin Albumin/Globulin Ratio Carcinoembryonic Ag 2.1 CA 125 Antigen 127.0 H Urine Legionella Ag NOT DETECTED 08/01/24 05:24 WBC 37.4 H* RBC 3.29 L Hgb 8.9 L Hct 28.0 L MCV 85 MCH 27.1 MCHC 31.8 RDW Std Deviation 47.8 H Plt Count 324 Neut % (Auto) 84 H Lymph % (Auto) 4 L [place] % (Auto) 7 Eos % (Auto) 2 Baso % (Auto) 0 Neut # (Auto) 31.6 H Lymph # (Auto) 1.5 [place] # (Auto) 2.4 H Eos # (Auto) 0.6 H Baso # (Auto) 0.0 Immature Gran # (Auto) 1.30 H Absolute Nucleated RBC 0.00 Immature Gran % 4 H Nucleated RBC % 0 Smear Path Review Cancelled ESR Sodium 133 L Potassium 3.6 Chloride 90 L Carbon Dioxide 37.8 H Anion Gap 5 L BUN 28 H Creatinine 0.9 Estim Creat Clear Calc 63.4 eGFR > 60 BUN/Creatinine Ratio 31 H Glucose 171 H Calculated Osmolality 275 Calcium 10.8 H Corrected Calcium 11.4 H Magnesium 2.3 Total Bilirubin 0.3 AST 32 ALT 45 Alkaline Phosphatase 134 H C-Reactive Prot, Quant Total Protein 6.1 Albumin 3.3 L Globulin 2.8 Albumin/Globulin Ratio 1.2 Carcinoembryonic Ag CA 125 Antigen Urine Legionella Ag ABG Interpretation ABG results: 07/24/24 21:16 ABG pH 7.44 ABG pCO2 55 H ABG pO2 82 L ABG HCO3 37 H ABG O2 Saturation 97 ABG Base Excess 11 H Quality Measures Quality Measures none Advance care planning discussed with:: patient and child Assessment & Plan Assessment Current Active Medications: Generic Name Dose Route Start Last Admin Trade Name Freq PRN Reason Stop Dose Admin Acetaminophen 650 mg 07/24/24 17:23 07/25/24 01:33 Acetaminophen 325 Mg Tablet PO 08/23/24 17:22 650 mg Q6H PRN Administration Fever >100.5 Acetaminophen 650 mg 07/24/24 17:23 08/01/24 03:54 Acetaminophen 325 Mg Tablet PO 08/23/24 17:22 650 mg Q6H PRN Administration PAIN SCALE 1-3 (mild Hydrocodone Bitart/Acetaminophen 1 tab 07/30/24 18:38 07/31/24 07:32 Hydrocodone/Apap 5/325 Tablet PO 08/04/24 05:48 1 tab Q6HR PRN Administration PAIN SCALE 4-6 (Moderate Hydrocodone Bitart/Acetaminophen 1 tab 07/30/24 18:38 Hydrocodone/Apap 7.5/325 Tablet PO 08/04/24 18:37 Q8HR PRN PAIN SCALE 7-10 (Severe Albuterol/Ipratropium 3 ml 07/31/24 19:00 08/01/24 11:06 Albuterol/Ipratropium (Duoneb) Rt Tammy 3 Ml Nebu INH 08/30/24 18:59 3 ml Q4HRRT VERITO Administration Aspirin 81 mg 07/24/24 18:15 08/01/24 08:13 Aspirin Ec 81 Mg Tabec PO 08/23/24 18:14 81 mg QDAY VERITO Administration Atorvastatin Calcium 40 mg 07/24/24 21:00 07/31/24 20:08 Atorvastatin Calcium 20 Mg Tablet PO 08/23/24 20:59 40 mg HS VERITO Administration Benzonatate 100 mg 08/01/24 10:00 08/01/24 10:04 Benzonatate 100 Mg Capsule PO 08/31/24 09:59 100 mg Q8HR VERITO Administration Protocol Bumetanide 2 mg 07/31/24 14:45 Bumetanide Inj 0.25 Mg/Ml Vial 4 Ml IVP 08/30/24 14:44 QDAY VERITO Docusate Sodium 100 mg 07/25/24 09:00 08/01/24 08:13 Docusate Sod 100 Mg Capsule PO 08/24/24 08:59 100 mg QDAY VERITO Administration Protocol Dorzolamide/Timolol 1 drop 07/30/24 10:00 08/01/24 08:13 Dorzolamide/Timolol Op Tammy 10 Ml Btl BOTH EYES 08/29/24 09:59 1 drop BID VERITO Administration Fluconazole 400 mg 07/30/24 09:00 08/01/24 08:13 Fluconazole 100 Mg Tablet PO 08/06/24 08:59 400 mg QDAY VERITO Administration Guaifenesin/Dextromethorphan 10 ml 07/29/24 21:00 08/01/24 08:12 Guaifenesin/Dm 10 Ml Udc PO 08/28/24 20:59 10 ml BID VERITO Administration Protocol Heparin Sodium (Porcine) 5,000 unit 07/24/24 22:00 08/01/24 05:27 Heparin Sod Inj 5000 Unit/Ml Vial SC 08/07/24 21:59 Not Given Q8HR VERITO Ceftriaxone Sodium/Dextrose 50 mls @ 100 mls/hr 07/30/24 07:50 08/01/24 08:12 Rocephin/D5w 1gm Iv Premix IV 08/06/24 07:49 100 mls/hr QDAY VERITO Administration Latanoprost 0 drop 07/30/24 21:00 07/31/24 20:09 Latanoprost Op Tammy 0.005% 2.5 Ml Btl BOTH EYES 08/29/24 20:59 1 drop QPM VERITO Administration Levofloxacin 750 mg 07/29/24 09:00 07/29/24 09:24 Levofloxacin 250 Mg Tablet PO 08/05/24 08:59 750 mg QDAY VERITO Administration Loratadine 10 mg 07/28/24 10:30 08/01/24 08:13 Loratadine 10 Mg Tablet PO 08/27/24 10:29 10 mg QDAY VERITO Administration Losartan Potassium 50 mg 07/24/24 18:45 08/01/24 08:39 Losartan Potassium 25 Mg Tablet PO 08/23/24 18:44 Not Given QDAY VERITO Melatonin 6 mg 07/30/24 21:00 07/31/24 20:08 Melatonin 3 Mg Tablet PO 08/29/24 20:59 6 mg HS VERITO Administration Ondansetron HCl 4 mg 07/24/24 17:23 Ondansetron Inj 2 Mg/Ml Inj 2 Ml IV 08/23/24 17:22 Q6H PRN NAUSEA OR VOMITING Protocol Tamsulosin HCl 0.4 mg 07/24/24 17:45 08/01/24 08:13 Tamsulosin Hcl 0.4 Mg Capsule PO 08/23/24 17:44 0.4 mg QDAY VERITO Administration Plan 89-year-old former smoker male with past medical history of hypertension, congestive heart failure, hyperlipidemia who presented to the ED from Dr. Noyola's office due to shortness of breath. Patient will be admitted due to acute hypoxic respiratory failure secondary to acute decompensated heart failure versus bilateral pneumonia. #Acute hypoxic respiratory failure #Left-sided pleural effusion # HFpEF 60-65% #Pulmonary embolism-ruled out Patient has been having progressive shortness of breath for the past few days, patient endorses orthopnea BNP within normal limits, troponins negative Patient has extensive cardiac history including coronary artery disease with stent placement, congestive heart failure, hypertension, pacemaker placement, valve replacement Chest x-ray was done showed left-sided pleural effusion D-dimer was found to be more than 3820, CTA was ordered however patient was unable to lay flat so study was unable to be done, will likely need some diuresis and later perform study Ultrasound left side of the chest was done, ultrasound of the lower extremities was done negative for DVT Echo showed Normal LV size and function. Mild LVH. Estimated EF 60-65%. Normal RV size and function. Aortic bioprothetic valve mean gradient 4mmHg, vmax 1.5m/s. Trace TR. Large pleural effusion present. Patient underwent left-sided thoracentesis approximately 2 L of fluid removed. Postprocedure chest x-ray does not show much improvement will place patient on BiPAP at this time. CTA chest negative for pulmonary emboli CXR shows left sided pleural effusion Pleural fluid culture showed no growth -Bumex 2 mg IV 2 times daily -Strict ins and outs -Fluid restriction 1200 mL -Daily weights -BiPAP at night -Incentive spirometry ordered -DuoNebs every 4 hours scheduled -Keep potassium above 4, magnesium above 2 -Cardiology Dr. Noyola consulted and appreciate recommendations #Sepsis secondary to bilateral pneumonia #Community-acquired pneumonia #Cocci Pneumonia Admission patient had leukocytosis, tachycardia, tachypnea 3 out of 4 SIRS criteria with endorgan damage lung Patient had a cold a few weeks ago and then a few days ago started developing a cough with shortness of breath has been progressing till arrival here in the ED. Sepsis 30 cc/kg not given due to likely CHF exacerbation Lactic acid normal, Pro-Brandt 1.02 Blood cultures negative in 24 hours, urine culture is negative RSV negative, COVID-negative, flu negative Blood cultures negative in 24hours CXR showed bilateral pneumonia Blood cultures negative in 48 hours -Levofloxacin on hold -On ceftriaxone -Diflucan 400mg -Follow-up Legionella, Aspergillus -Sputum cultures pending -ID, Dr. Davis consulted, appreciate recommendations #Leukocytosis #? 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 High suspicion of malignancy as patient has history of bladder cancer, skin cancer and then adenocarcinoma in the lymph nodes Patient she sees Dr. Dewitt and Mary Latest PET scan shows PET Scan 06/04/24: expected appearance after laparotomy and partial bladder resection with placement of b/l nephroureteral stents. Inflammatory changes noted in lower anterior abdominal wall laparotomy area with drain in place as expected postsurgically. Frothy material and increased FDG avidity below may indicate infection and or dehiscence/ Markedly FDG avid prostate lesion concerning for carcinoma. FDG avid right pelvic sidewall LN concerning for metastasis. Dr. Stubbs spoke to Dr. Dewitt in [place] stated that has scheduled patient for PMSA PET which is more specific for prostate cancer mets. Reportedly is planning ADT with Lupron and antiandrogen soon. -Oncology Dr. Stubbs consulted, appreciate recommendations #Hypertension #Hyperlipidemia #CAD status post stents #Status post pacemaker #History of valve replacement #QT prolongation Patient takes simvastatin 40 mg and baby aspirin EKG was done showed QTc 505 -Hold QT prolonging agents -Resumed aspirin 81 mg daily -On losartan 50 mg daily -Atorvastatin 40 mg daily #Benign prostatic hyperplasia #History of TURP procedure -Resume Flomax 0.4 mg daily #Sacral wound On physical exam noted to have sacral wound possibly grade 1 -Wound care ordered Case discussed with my senior Dr. Bocanegra PGY-[address] Blanco Graff MD PGY-1 Disposition: Telemetry Fluids: None Feeding: Cardiac diet Thrombo prophylaxis: Heparin Gastric Ulcer prophylaxis: Not indicated CODE STATUS: DNR Attending Provider Attestation/Addendum Mayra Jones DO, attest that I was physically present for the ca portions of the service and evaluated the patient with the resident and I reviewed and discussed the case with the resident and agree with the resident's findings and plans of care as documented above Patient seen and evaluated this AM. He has had an increased dry cough overnight causing bronchospasm per daughter. WBCs downtrended slightly. Patient remains afebrile. Discussed case with Oncology, recommends for patient to f/u with Dr. Dewitt for prostate specific PET scan. Feels that leukocytosis can be 2/2 malignancy, but more often associated with hematologic malignancies. Obtained records from daughter, results written in event note. F/u with cultures. Levofloxacin was held due to prolonged QT. Abx coverage has only included GNR and anaerobes. Will add doxycycline for atypical coverage
[2024-08-01] MEDS: HEPARIN SOD INJ 5000 UNIT/ML VIAL SC ×2 (13:48→21:41)
[2024-08-01] MEDS: DOXYCYCLINE 100 MG TABLET PO ×2 (15:10→20:22)
[2024-08-01] MEDS: ATORVASTATIN CALCIUM 20 MG TABLET 40 MG PO (20:22)
[2024-08-01] MEDS: IBUPROFEN TAB 200 MG TABLET PO (20:22)
[2024-08-01] MEDS: LATANOPROST OP SOL 0.005% 2.5 ML BTL BOTH EYES (20:25)
[2024-08-01] MEDS: MELATONIN 3 MG TABLET 6 MG PO (21:41)
[2024-08-02] VITALS (14 sets, daily range): BP systolic 110–148; BP diastolic 52–77; PULSE 66–106; RESP 12–28; TEMP 36.1–36.3; O2SAT 78–99
--- NOTE | 2024-08-02 02:12 | ESPR_ITS ---
RE: WALDEMAR CHOUDHARY : 1935 DATE OF SERVICE: 08/01/2024 SUBJECTIVE: Waldemar Choudhary is an 89-year-old male with a history of TAVR procedure, status post bypass surgery and stent placement, multiple cardiac issues, recently had extensive surgery at the [facility], complicated by many issues. 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 The patient also has had a pleural effusion that required drainage and there is extensive pneumonemia bilaterally, mediastinal lymph nodes_ possibly from [place] fever. The patient also has large cystic mass of the right pelvis and oncology also seen this patient. . The patient is also receiving antibiotics for HFpEF improving symptoms, shortness of breath improved significantly, but still having some weakness, back pain, which he has had chronically. He does not complain of any other symptoms. The patient did have a complex surgery, bladder diverticulum, removal of hernia mesh, robotic diverticulectomy and hernia repair, prolonged hospitalization, complicated course at [facility]. The patient's concern of metastatic carcinoma in the lung, which I doubt very much. OBJECTIVE: General: His symptoms much better than yesterday. Vital Signs: His vital signs are stable. blood pressure 110/70, pulse 93, respirations 20. Temperature is normal. HEENT: Head is atraumatic and normocephalic. Eyes normal. ENT normal. Neck: Supple. No JVD. Lungs: Decreased breath sounds at the basis. No rales or rhonchi. Heart: S1 and S2, regular. S4 gallop heard. Abdomen: Thin and soft. Extremities: Mild edema. Genitourinary: Not performed. Rectal: Not performed. IMPRESSION: 1. Hypoxic respiratory failure, improved. 2. Bilateral pneumonia secondary to coccidioidomycosis ([place] fever). 3. Carcinoma of the prostate with persistent PSA elevation, extensive surgery, followed by oncologist now. Questionable metastatic lesions in the lung, I doubt very much. 4. Status post TAVR (transcutaneous aortic valve replacement) procedure, stable with negative echocardiogram. 5. Status post bypass surgery, stent placement, clinically stable. RECOMMENDATIONS: We will continue with medical management and antifungal treatment of fluconazole as well, receiving antibiotics. White count is slowly improving, though persistent is still present. Continued on bumetanide. The bumetanide has been held as the patient appears to be much more stable, now not having any heart failure symptoms. Cardiac osman quite stable, though not have any arrhythmias. DT: 22:39:47 TT: 01:58:00 Ref: [id number] - TID: [id number] MTDD
[2024-08-02] MEDS: ACETAMINOPHEN 325 MG TABLET 650 MG PO (04:17)
[2024-08-02 05:38] LABS: Basophils # (Auto) 0.1 Thou/mm3 (0.0-0.2); Basophils % (Auto) 0 % (0-2.5); Eosinophils # (Auto) 0.8 Thou/mm3 (0.0-0.5); Eosinophils % (Auto) 2 % (0-10); Hematocrit 27.6 % (41.0-53.0); Hemoglobin 8.9 g/dL (13.5-16.0); Immature Granulocytes % (Auto) 4 % (0-0); Immature Granulocytes Auto 1.49 Thou/mm3 (0.00-0.00); Lymphocytes # (Auto) 2.2 Thou/mm3 (1.0-4.8); Lymphocytes % (Auto) 6 % (10-50); Mean Corpuscular HGB Conc 32.2 g/dl (31.0-37.0); Mean Corpuscular Hemoglobin 27.4 pg (25.0-35.0); Mean Corpuscular Volume 85 fL (80-100); Monocytes # (Auto) 2.6 Thou/mm3 (0.0-0.8); Monocytes % (Auto) 7 % (0-12); Neutrophils # (Auto) 33.3 Thou/mm3 (1.8-7.7); Neutrophils % (Auto) 82 % (37-80); Nucleated Red Blood Cell % 0 /100 WBC (0); Platelet Count 294 Thou/mm3 (140-440); RDW Standard Deviation 47.9 fL (35.1-43.9); Red Blood Count 3.25 Miln/mm3 (4.50-5.90)
[2024-08-02 05:46] LABS: White Blood Count 40.5 Thou/mm3 (3.8-10.6)
[2024-08-02] MEDS: HEPARIN SOD INJ 5000 UNIT/ML VIAL SC ×3 (05:58→21:26)
[2024-08-02] MEDS: BENZONATATE 100 MG CAPSULE PO ×3 (06:00→21:20)
[2024-08-02 06:19] LABS: Alanine Aminotransferase 47 U/L (10-49); Albumin, Serum 3.2 gm/dL (3.4-4.8); Albumin/Globulin Ratio 1.2 (1.2-2.2); Alkaline Phosphatase 156 U/L (46-116); Anion Gap 4 (7-16); Aspartate Amino Transferase 36 U/L (0-34); BUN/Creatinine Ratio 33 Ratio (12-20); Bilirubin,Total 0.3 mg/dL (0.3-1.2); Blood Urea Nitrogen 33 mg/dL (9-23); Calcium 10.8 mg/dL (8.3-10.6); Calcium (Corrected) 11.4 mg/dL (8.5-10.1); Carbon Dioxide 35.9 mMol/L (20.0-31.0); Chloride 92 mMol/L (98-107); Estimated Creatinine Clearance 57.5 mL/min (>60); Globulin 2.6 gm/dL (2.3-3.5); Glucose 139 mg/dL (74-106); Magnesium 2.2 mg/dL (1.6-2.6); Osmolality,Calculated 273 (275-295); Potassium 3.9 mMol/L (3.4-5.1); Sodium 132 mMol/L (136-145); Total Protein 5.8 gm/dL (5.7-8.2); eGFR > 60 See Note
[2024-08-02 06:35] LABS: Path Review Blood Smear Sent to Pathologist
[2024-08-02] MEDS: ALBUTEROL/IPRATROPIUM (Duoneb) RT SOL 3 ML NEBU INH ×5 (07:00→22:34)
[2024-08-02] MEDS: POTASSIUM CHLORIDE 20 mEq TABCR 40 MEQ PO (07:44)
[2024-08-02] MEDS: [UNRECOGNIZED DRUG - OTHER] BOTH EYES ×2 (09:33→21:24)
[2024-08-02] MEDS: cefTRIAXone/D5w 1gm IV premix 50 ML IV (09:33)
[2024-08-02] MEDS: DORZOLAMIDE BOTH EYES ×2 (09:33→21:24)
[2024-08-02] MEDS: guaiFENesin/DM 10 ML UDC PO ×2 (09:33→21:19)
--- NOTE | 2024-08-02 10:17 | XR_ITS ---
Examination: AP chest single view Technique one AP portable upright chest single view Exam date and time: August 02, 2024 1028 hrs. Comparison July 31, 2024 Indications: Shortness of breath today. Findings: Significant bilateral lung opacity Enlarged cardiac contour with prominent vascular congestion Cardiac leads stable position Impression: [id number] heart failure Bilateral pneumonia again noted
--- NOTE | 2024-08-02 10:21 | PC.NURSE ---
Notified Dr Dodson that patient had a coughing fit while taking liquid medications. His oxygen dropped to 69 and sustained. Oxymask applied at 11 liters, respiratory responded, and Dr will see patient at bedside.
[2024-08-02] MEDS: metroNIDAZOLE/NS 500 MG IVPB 500 MG/100 ML BAG 200 MG IV ×3 (11:03→21:20)
[2024-08-02] MEDS: CEFEPIME INJ 1 GM in SODIUM CHLORIDE 0.9% 50 ML IV ×2 (11:03→21:15)
[2024-08-02] MEDS: SODIUM CHLORIDE 0.9% 500 ML 500 ML 75 ML IV (11:03)
--- NOTE | 2024-08-02 13:33 | PD.RESPRO ---
Documentation for date of: 08/02/24 Subjective Subjective Interval history: Patient seen today at the bedside fine awake, alert, oriented x 3. No overnight events reported. This morning nurse reported patient possibly aspirated and oxygen requirements increase patient was placed on high flow nasal cannula chest x-ray was ordered which showed [id number] heart failure, Bilateral pneumonia again noted. Antibiotics were broadened to cefepime and Flagyl. Diuretics were held by cardiology patient looks clinically dry we will give 500ml NS at 75 cc/h. Exam Vital Signs Temp Pulse Resp BP Pulse Ox O2 Del Method O2 Flow Rate 96.9 F 106 H 25 H 114/57 L 98 High Flow Nasal Cannula 40 08/02/24 12:00 08/02/24 12:00 08/02/24 12:00 08/02/24 12:00 08/02/24 12:00 08/02/24 12:00 08/02/24 12:00 FiO2 100 08/02/24 12:00 Narrative Exam Physical Exam GENERAL: NAD, AAOx3, hard of hearing HEENT: Moist mucosa. Eyes open, symmetrical, & clear CARDIO: Heart RRR, no obvious murmurs PULM: No noted coughing, +dyspnea, decreased BS on the left GI: Abdomen soft, nondistended, no pain on palpation. BSx4 SKIN/MSK/EXT: +2 pitting lower extremity edema, no pain on palpation. Sacral wound pedal pulses present B/L NEURO: AAOx3, no focal neuro deficits, able to move all 4 extremities Objective Labs 08/03/24 05:00 08/03/24 05:00 Labs: Laboratory Results - last 24 hr 08/02/24 04:42 WBC 40.5 H* RBC 3.25 L Hgb 8.9 L Hct 27.6 L MCV 85 MCH 27.4 MCHC 32.2 RDW Std Deviation 47.9 H Plt Count 294 D Neut % (Auto) 82 H Lymph % (Auto) 6 L Laurel % (Auto) 7 Eos % (Auto) 2 Baso % (Auto) 0 Neut # (Auto) 33.3 H Lymph # (Auto) 2.2 Laurel # (Auto) 2.6 H Eos # (Auto) 0.8 H Baso # (Auto) 0.1 Immature Gran # (Auto) 1.49 H Absolute Nucleated RBC 0.00 Immature Gran % 4 H Nucleated RBC % 0 Smear Path Review Sent to Pathologist Sodium 132 L Potassium 3.9 Chloride 92 L Carbon Dioxide 35.9 H Anion Gap 4 L BUN 33 H Creatinine 1.0 Estim Creat Clear Calc 57.5 L eGFR > 60 BUN/Creatinine Ratio 33 H Glucose 139 H Calculated Osmolality 273 L Calcium 10.8 H Corrected Calcium 11.4 H Magnesium 2.2 Total Bilirubin 0.3 AST 36 H ALT 47 Alkaline Phosphatase 156 H D Total Protein 5.8 Albumin 3.2 L Globulin 2.6 Albumin/Globulin Ratio 1.2 ABG Interpretation ABG results: 07/24/24 21:16 ABG pH 7.44 ABG pCO2 55 H ABG pO2 82 L ABG HCO3 37 H ABG O2 Saturation 97 ABG Base Excess 11 H Quality Measures Quality Measures none Advance care planning discussed with:: patient and child Assessment & Plan Assessment Current Active Medications: Generic Name Dose Route Start Last Admin Trade Name Freq PRN Reason Stop Dose Admin Acetaminophen 650 mg 07/24/24 17:23 08/01/24 21:41 Acetaminophen 325 Mg Tablet PO 08/23/24 17:22 650 mg Q6H PRN Administration Fever >100.5 Acetaminophen 650 mg 07/24/24 17:23 08/02/24 04:17 Acetaminophen 325 Mg Tablet PO 08/23/24 17:22 650 mg Q6H PRN Administration PAIN SCALE 1-3 (mild Hydrocodone Bitart/Acetaminophen 1 tab 07/30/24 18:38 07/31/24 07:32 Hydrocodone/Apap 5/325 Tablet PO 08/04/24 05:48 1 tab Q6HR PRN Administration PAIN SCALE 4-6 (Moderate Hydrocodone Bitart/Acetaminophen 1 tab 07/30/24 18:38 Hydrocodone/Apap 7.5/325 Tablet PO 08/04/24 18:37 Q8HR PRN PAIN SCALE 7-10 (Severe Albuterol/Ipratropium 3 ml 07/31/24 19:00 08/02/24 10:06 Albuterol/Ipratropium (Duoneb) Rt Tammy 3 Ml Nebu INH 08/30/24 18:59 3 ml Q4HRRT VERITO Administration Aspirin 81 mg 07/24/24 18:15 08/02/24 10:45 Aspirin Ec 81 Mg Tabec PO 08/23/24 18:14 Not Given QDAY VERITO Atorvastatin Calcium 40 mg 07/24/24 21:00 08/01/24 20:22 Atorvastatin Calcium 20 Mg Tablet PO 08/23/24 20:59 40 mg HS VERITO Administration Benzonatate 100 mg 08/01/24 10:00 08/02/24 06:00 Benzonatate 100 Mg Capsule PO 08/31/24 09:59 100 mg Q8HR VERITO Administration Protocol Docusate Sodium 100 mg 07/25/24 09:00 08/02/24 09:30 Docusate Sod 100 Mg Capsule PO 08/24/24 08:59 Not Given QDAY VERITO Protocol Dorzolamide/Timolol 1 drop 07/30/24 10:00 08/02/24 09:33 Dorzolamide/Timolol Op Tammy 10 Ml Btl BOTH EYES 08/29/24 09:59 1 drop BID VERITO Administration Doxycycline Hyclate 100 mg 08/01/24 14:45 08/02/24 09:30 Doxycycline 100 Mg Tablet PO 08/08/24 14:44 Not Given BID VERITO Fluconazole 400 mg 07/30/24 09:00 08/02/24 09:30 Fluconazole 100 Mg Tablet PO 08/06/24 08:59 Not Given QDAY VERITO Guaifenesin/Dextromethorphan 10 ml 07/29/24 21:00 08/02/24 09:33 Guaifenesin/Dm 10 Ml Udc PO 08/28/24 20:59 10 ml BID VERITO Administration Protocol Heparin Sodium (Porcine) 5,000 unit 07/24/24 22:00 08/02/24 05:58 Heparin Sod Inj 5000 Unit/Ml Vial SC 08/07/24 21:59 5,000 unit Q8HR VERITO Administration Sodium Chloride 500 mls @ 75 mls/hr 08/02/24 10:22 08/02/24 11:03 Ns IV 08/02/24 17:01 75 mls/hr .Q6H40M ONE Administration Cefepime HCl 1 gm/ Sodium 50 mls @ 100 mls/hr 08/02/24 10:36 08/02/24 11:03 Chloride IV 08/09/24 10:35 100 mls/hr Q12HR VERITO Administration Metronidazole 500 mg in 100 mls @ 200 mls/hr 08/02/24 10:37 08/02/24 11:03 Flagyl 500 Mg Iv IV 08/09/24 10:36 200 mls/hr Q8HR VERITO Administration Latanoprost 0 drop 07/30/24 21:00 08/01/24 20:25 Latanoprost Op Tammy 0.005% 2.5 Ml Btl BOTH EYES 08/29/24 20:59 1 drop QPM VERITO Administration Loratadine 10 mg 07/28/24 10:30 08/02/24 09:30 Loratadine 10 Mg Tablet PO 08/27/24 10:29 Not Given QDAY VERITO Losartan Potassium 50 mg 07/24/24 18:45 08/02/24 09:45 Losartan Potassium 25 Mg Tablet PO 08/23/24 18:44 Not Given QDAY VERITO Melatonin 6 mg 07/30/24 21:00 08/01/24 21:41 Melatonin 3 Mg Tablet PO 08/29/24 20:59 6 mg HS VERITO Administration Ondansetron HCl 4 mg 07/24/24 17:23 Ondansetron Inj 2 Mg/Ml Inj 2 Ml IV 08/23/24 17:22 Q6H PRN NAUSEA OR VOMITING Protocol Tamsulosin HCl 0.4 mg 07/24/24 17:45 08/02/24 09:30 Tamsulosin Hcl 0.4 Mg Capsule PO 08/23/24 17:44 Not Given QDAY VERITO Plan 89-year-old former smoker male with past medical history of hypertension, congestive heart failure, hyperlipidemia who presented to the ED from Dr. Noyola's office due to shortness of breath. Patient will be admitted due to acute hypoxic respiratory failure secondary to acute decompensated heart failure versus bilateral pneumonia. #Acute hypoxic respiratory failure #Left-sided pleural effusion # HFpEF 60-65% #Pulmonary embolism-ruled out Patient has been having progressive shortness of breath for the past few days, patient endorses orthopnea BNP within normal limits, troponins negative Patient has extensive cardiac history including coronary artery disease with stent placement, congestive heart failure, hypertension, pacemaker placement, valve replacement Chest x-ray was done showed left-sided pleural effusion D-dimer was found to be more than 3820, CTA was ordered however patient was unable to lay flat so study was unable to be done, will likely need some diuresis and later perform study Ultrasound left side of the chest was done, ultrasound of the lower extremities was done negative for DVT Echo showed Normal LV size and function. Mild LVH. Estimated EF 60-65%. Normal RV size and function. Aortic bioprothetic valve mean gradient 4mmHg, vmax 1.5m/s. Trace TR. Large pleural effusion present. Patient underwent left-sided thoracentesis approximately 2 L of fluid removed. Postprocedure chest x-ray does not show much improvement will place patient on BiPAP at this time. CTA chest negative for pulmonary emboli CXR shows left sided pleural effusion Pleural fluid culture showed no growth Currently on high flow nasal cannula -Bumex 2 mg IV 2 times daily -Strict ins and outs -Fluid restriction 1200 mL -Daily weights -BiPAP at night -Incentive spirometry ordered -DuoNebs every 4 hours scheduled -Keep potassium above 4, magnesium above 2 -Cardiology Dr. Noyola consulted and appreciate recommendations #Sepsis secondary to bilateral pneumonia #Community-acquired pneumonia #Aspiration pneumonia #Cocci Pneumonia Admission patient had leukocytosis, tachycardia, tachypnea 3 out of 4 SIRS criteria with endorgan damage lung Patient had a cold a few weeks ago and then a few days ago started developing a cough with shortness of breath has been progressing till arrival here in the ED. Sepsis 30 cc/kg not given due to likely CHF exacerbation Lactic acid normal, Pro-Brandt 1.02 Blood cultures negative in 24 hours, urine culture is negative RSV negative, COVID-negative, flu negative Blood cultures negative in 24hours CXR showed bilateral pneumonia Blood cultures negative in 48 hours This a.m. patient noted to have aspirated per nursing staff Oxygen requirements have increased patient currently on high flow nasal cannula -Levofloxacin on hold -On cefepime, Flagyl -Diflucan 400mg -Follow-up Legionella, Aspergillus -Sputum cultures pending -ID, Dr. Davis consulted, appreciate recommendations #Persistent Leukocytosis #? 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 High suspicion of malignancy as patient has history of bladder cancer, skin cancer and then adenocarcinoma in the lymph nodes Patient she sees Dr. Dewitt and Mary Latest PET scan shows PET Scan 06/04/24: expected appearance after laparotomy and partial bladder resection with placement of b/l nephroureteral stents. Inflammatory changes noted in lower anterior abdominal wall laparotomy area with drain in place as expected postsurgically. Frothy material and increased FDG avidity below may indicate infection and or dehiscence/ Markedly FDG avid prostate lesion concerning for carcinoma. FDG avid right pelvic sidewall LN concerning for metastasis. Dr. Stubbs spoke to Dr. Dewitt in [place] stated that has scheduled patient for PMSA PET which is more specific for prostate cancer mets. Reportedly is planning ADT with Lupron and antiandrogen soon. -Oncology Dr. Stubsb consulted, appreciate recommendations #Hypertension #Hyperlipidemia #CAD status post stents #Status post pacemaker #History of valve replacement #QT prolongation Patient takes simvastatin 40 mg and baby aspirin EKG was done showed QTc 505 Last EKG showed QTc 495 -Hold QT prolonging agents -Resumed aspirin 81 mg daily -On losartan 50 mg daily -Atorvastatin 40 mg daily #Benign prostatic hyperplasia #History of TURP procedure -Resume Flomax 0.4 mg daily #Sacral wound On physical exam noted to have sacral wound possibly grade 1 -Wound care ordered Case discussed with my senior Dr. Bocanerga PGY-[address] Blanco Graff MD PGY-1 Disposition: Telemetry Fluids: None Feeding: Cardiac diet Thrombo prophylaxis: Heparin Gastric Ulcer prophylaxis: Not indicated CODE STATUS: DNR Attending Provider Attestation/Addendum Mayra Jones DO, attest that I was physically present for the ca portions of the service and evaluated the patient with the resident and I reviewed and discussed the case with the resident and agree with the resident's findings and plans of care as documented above Patient seen and evaluated this AM. Patient complains of dry cough and had an aspiration event this morning resulting in desaturation in the 70s. Patient was subsequently placed on HFNC with flow of 40L/min and FIO2 100%. Patient is agreeable to thoracoscentesis if necessary and states that he would be willing to undergo any procedure that would allow him to go home faster. Patient had done well overnight, per daughter, and had been sitting at the edge of the bed eating breakfast. CXR was done showing worsening left sided pleural effusion. Plan for possible thorascentesis in AM. Leukocytosis uptrending. Antibiotic coverage broadened to cefepime and flaygl due to concern for aspiration pneumonia.
[2024-08-02 17:49] LABS: Index Value <0.50
[2024-08-02] MEDS: ATORVASTATIN CALCIUM 20 MG TABLET 40 MG PO (21:18)
[2024-08-02] MEDS: MELATONIN 3 MG TABLET 6 MG PO (21:19)
[2024-08-02] MEDS: DOXYCYCLINE 100 MG TABLET PO (21:19)
[2024-08-02] MEDS: LATANOPROST OP SOL 0.005% 2.5 ML BTL BOTH EYES (21:25)
[2024-08-03] VITALS (12 sets, daily range): BP systolic 117–144; BP diastolic 61–78; PULSE 65–97; RESP 18–35; TEMP 35.9–36.3; O2SAT 91–97
[2024-08-03] MEDS: ACETAMINOPHEN 325 MG TABLET 650 MG PO (02:13)
[2024-08-03] MEDS: ALBUTEROL/IPRATROPIUM (Duoneb) RT SOL 3 ML NEBU INH ×3 (02:21→10:44)
[2024-08-03] MEDS: BENZONATATE 100 MG CAPSULE PO (05:51)
[2024-08-03] MEDS: HEPARIN SOD INJ 5000 UNIT/ML VIAL SC (05:51)
[2024-08-03] MEDS: metroNIDAZOLE/NS 500 MG IVPB 500 MG/100 ML BAG 200 MG IV (05:51)
[2024-08-03 06:29] LABS: Basophils # (Auto) 0.1 Thou/mm3 (0.0-0.2); Basophils % (Auto) 0 % (0-2.5); Eosinophils # (Auto) 0.3 Thou/mm3 (0.0-0.5); Eosinophils % (Auto) 1 % (0-10); Hematocrit 29.1 % (41.0-53.0); Hemoglobin 9.2 g/dL (13.5-16.0); Immature Granulocytes % (Auto) 3 % (0-0); Immature Granulocytes Auto 1.32 Thou/mm3 (0.00-0.00); Lymphocytes # (Auto) 1.8 Thou/mm3 (1.0-4.8); Lymphocytes % (Auto) 4 % (10-50); Mean Corpuscular HGB Conc 31.6 g/dl (31.0-37.0); Mean Corpuscular Hemoglobin 27.1 pg (25.0-35.0); Mean Corpuscular Volume 86 fL (80-100); Monocytes # (Auto) 2.3 Thou/mm3 (0.0-0.8); Monocytes % (Auto) 5 % (0-12); Neutrophils # (Auto) 36.6 Thou/mm3 (1.8-7.7); Neutrophils % (Auto) 86 % (37-80); Nucleated Red Blood Cell % 0 /100 WBC (0); Platelet Count 319 Thou/mm3 (140-440); RDW Standard Deviation 48.7 fL (35.1-43.9)
[2024-08-03 06:32] LABS: White Blood Count 42.4 Thou/mm3 (3.8-10.6)
[2024-08-03 06:50] LABS: Alanine Aminotransferase 41 U/L (10-49); Albumin, Serum 3.2 gm/dL (3.4-4.8); Albumin/Globulin Ratio 1.1 (1.2-2.2); Alkaline Phosphatase 145 U/L (46-116); Anion Gap 6 (7-16); Aspartate Amino Transferase 24 U/L (0-34); BUN/Creatinine Ratio 33 Ratio (12-20); Bilirubin,Total 0.3 mg/dL (0.3-1.2); Blood Urea Nitrogen 26 mg/dL (9-23); Calcium 11.4 mg/dL (8.3-10.6); Carbon Dioxide 36.7 mMol/L (20.0-31.0); Chloride 94 mMol/L (98-107); Creatinine (Component) 0.8 mg/dL (0.6-1.3); Estimated Creatinine Clearance 71.1 mL/min (>60); Globulin 2.9 gm/dL (2.3-3.5); Glucose 157 mg/dL (74-106); Osmolality,Calculated 281 (275-295); Sodium 137 mMol/L (136-145); Total Protein 6.1 gm/dL (5.7-8.2); eGFR > 60 See Note
[2024-08-03 08:17] LABS: Misc Send Out* See Sep Rpt
[2024-08-03] MEDS: RINGERS LACTATED 1000 ML 1,000 ML 75 ML IV (08:43)
[2024-08-03] MEDS: guaiFENesin/DM 10 ML UDC PO (08:43)
[2024-08-03] MEDS: CEFEPIME INJ 1 GM in SODIUM CHLORIDE 0.9% 50 ML IV (08:43)
[2024-08-03] MEDS: FLUCONAZOLE 100 MG TABLET 400 MG PO (08:44)
[2024-08-03] MEDS: lorataDINE 10 MG TABLET PO (08:44)
[2024-08-03] MEDS: TAMSULOSIN HCL 0.4 MG CAPSULE PO (08:44)
[2024-08-03] MEDS: DOXYCYCLINE 100 MG TABLET PO (08:44)
[2024-08-03] MEDS: ASPIRIN EC 81 MG TABEC PO (08:44)
[2024-08-03] MEDS: LOSARTAN POTASSIUM 25 MG TABLET 50 MG PO (08:45)
[2024-08-03 09:03] LABS: Misc Send Out* See Sep Rpt
[2024-08-03] MEDS: DORZOLAMIDE BOTH EYES (09:48)
[2024-08-03] MEDS: [UNRECOGNIZED DRUG - OTHER] BOTH EYES (09:48)
--- NOTE | 2024-08-03 12:21 | PC.SS ---
Addendum entered by Kait Ceja 08/03/24 13:57: LIONEL scheduled EMS transportation for 1730. SW notified Alba, RN-Hayde and Hospice Intake-Telma. Original Note: Ophthalmic Medical Technologist (LIONEL) Kait informed by Dr. Bradley that patient and her daughter had a goals of care discussion. At this time, her daughter requested for patient to be discharge with hospice services. SW met with patient who appeared to be intermittently confused. Patient's daughter introduced self as Alba Mckeon. SW introduced self, role and reason for visit. Alba reported that she was aware of hospice services and understood that she would be responsible for the care of the patient. Alba reported that patient would like to go home to with his doggie at bedside. Alba reported that she has a brother, Darius that is willing to help as well. LIONEL explained attempted to provide different agencies for hospice. Alba requested on-call hospice agency which would be [facility]. LIONEL provided pamphlet. Alba opted to enroll patient with [facility]. LIONEL completed POLST, and it includes patient to be a DNR/Comfort Measures/No Artificial Means of Nutrition. POLST signed by Alba and Dr. Simeon. LIONEL connected with [facility] and faxed referral through [employer]. At this time, Residence Hall Director, Telma Ortiz, will contact Alba to deliver DME and coordinate with nursing care. LIONEL is awaiting for [facility]'s RN to contact LIONEL to schedule a transportation time.
--- NOTE | 2024-08-03 12:52 | PD.RESDS ---
Planned Discharge Date 08/03/24 DS: Providers Provider Date of admission: 07/24/24 17:23 Primary care physician: Huy Matute NP Admitting Provider: Luis Flores MD Attending Provider on Admission: Mayra Simeon DO Consults: 07/24/24 16:37 Consult to Cardiology Stat Comment: Consulting Provider: Flower Noyola Instructions: CHF 07/28/24 10:20 Consult to Infectious Diseases Stat Comment: Consulting Provider: Ayden Davis 07/28/24 14:42 PT [Referral Physical Therapy] Stat Comment: Physician Instructions: 08/01/24 08:11 Consult to Oncology Routine Comment: Consulting Provider: Camilo Stubbs 08/03/24 11:26 Referral Hospice Stat Comment: Attending Provider on DC: Mickey Constantino MD Discharging Provider: Mickey Constantino MD DS: Diagnosis Problem List Completed Was Problem List Reviewed/Reconciled?: Yes Hospital Course Hospital Course Hospital course: Mr. 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 Patient had been experiencing dyspnea for the past 1 month along with a dry cough and came into the hospital after conferring with his family and upon the recommendation. On initial presentation in the ED patient was noted to have a chest x-ray done which revealed a left-sided pleural effusion and also had a CTA ordered but will he was unable to perform due to orthopnea. Ultrasound of the left chest was done and patient underwent a thoracentesis where significant amount of fluid was drained and patient was able to lie flat so CTA was ordered once again and was negative for a pulmonary emboli. Upon initial presentation patient was requiring 4 L of oxygen to saturate above 92% following thoracentesis patient had a short interval of improvement but his oxygen requirement continued to remain elevated. Also upon initial presentation patient had a WBC count above 30,000 and met sepsis criteria but did not receive IV fluid resuscitation at 30 cc/kg due to the fact that is our suspicion that the patient was likely having some degree of CHF exacerbation. Patient continued to have significant leukocytosis so further lab studies were ordered including IgM cocci which came back positive so patient was started on treatment with fluconazole for management of valley fever. Patient continued on IV antibiotics for community-acquired pneumonia along with treatment for valley fever and did not show significant improvement so infectious disease was consulted. Infectious disease changed patient's antibiotic regimen to include levofloxacin but due to QT prolongation with both levofloxacin and fluconazole patient's Levaquin was discontinued after 1 day and doxycycline was added to his regimen. Pleural fluid culture for the patient did not grow any bacteria was found to be significantly exudative. Patient continued management as well for CHF exacerbation with Bumex 2 mg initially as a 3 times daily dose but slowly decreased to twice daily once adequate diuresis had been obtained. Due to his persistent leukocytosis and history of bladder/prostate cancer we decided to consult oncology and Dr. Camilo Stubbs spoke to patient's personal oncologist Dr. Dewitt and gave recommendations of outpatient follow-up without significant suspicion that patient's pleural effusion is secondary to a malignant process due to the patient's malignancies not being significant risk factors for malignant pleural effusion. While patient continued on antibiotic and antifungal therapy his oxygen requirement continued to worsen and repeat chest CT abdomen pelvis was ordered which provided some evidence for mediastinal lymphadenopathy, cystic mass, and bladder CA. 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 Pulmonology was consulted who suggested that patient would require multiple chest tubes and may still require decortication with a VATS so recommendation was given to us to have a goals of care discussion with the patient in case he was not interested in pursuing surgical intervention. After speaking to the patient and his daughter at bedside and in accordance with his wishes he decided that he would not like to continue with decortication or chest tubes and would prefer to be placed upon hospice care with the focus of his management being comfort based. Due to patient's significant oxygen requirement POLST form was signed to document his agreement to DO NOT INTUBATE and DO NOT RESUSCITATE status and patient will schedule to leave the hospital to continue with hospice care at home and the presence of his family and dog. Discontinue all medications that are further management of chronic conditions or are for curative measures and only continue with medications based upon patient's preference for comfort. Plan for discharge discussed with supervising attending Dr. Blanco Constantino M.D. 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 #Hypertension #Hyperlipidemia #CAD status post stents #Status post pacemaker #History of valve replacement #QT prolongation #Benign prostatic hyperplasia #History of TURP procedure #Sacral wound Disposition: Telemetry Fluids: None Feeding: Cardiac diet Thrombo prophylaxis: Heparin Gastric Ulcer prophylaxis: Not indicated CODE STATUS: DNR Status at Discharge Functional status at discharge: bed bound Overall status at discharge: patient is not back to baseline Time Spent with Patient Time attestation: Total time spent providing and/or coordinating discharge services: Time spent: Greater than 30 minutes Exam Vital Signs Temp Pulse Resp BP Pulse Ox O2 Del Method O2 Flow Rate 96.6 F L 76 21 H 144/64 H 91 L High Flow Nasal Cannula 20 08/03/24 12:00 08/03/24 12:00 08/03/24 12:00 08/03/24 12:00 08/03/24 12:00 08/03/24 12:00 08/03/24 10:45 FiO2 60 08/03/24 10:45 Narrative Exam Physical Exam GENERAL: NAD, AAOx3, hard of hearing HEENT: Moist mucosa. Eyes open, symmetrical, & clear CARDIO: Heart RRR, no obvious murmurs PULM: No noted coughing, +dyspnea, decreased BS on the left continued GI: Abdomen soft, nondistended, no pain on palpation. BSx4 SKIN/MSK/EXT: +2 pitting lower extremity edema, no pain on palpation. Sacral wound pedal pulses present B/L NEURO: AAOx3, no focal neuro deficits, able to move all 4 extremities Discharge Plan Plan Patient Disposition: Home w/HOSPICE Care Plan Goals: Patient will be discharged home on hospice care Prescriptions/Referrals Prescriptions/Med Rec: New atorvastatin 40 mg tablet 40 mg PO HS 30 Days Qty: 30 0RF Mucinex DM 30-600 mg Tablet Extended Release 12 Hr 1 tab PO Q4HR PRN (Reason: Cough) Qty: 10 0RF Continued tamsulosin 0.4 mg capsule 0.4 mg PO QHS simvastatin [Zocor] 40 MG tablet 20 mg PO HS Qty: 0 potassium chloride 20 mEq tablet,ER particles/crystals 20 meq PO DAILY bumetanide 1 mg tablet 1 mg PO DAILY losartan 50 mg tablet 50 mg PO DAILY latanoprost 0.005 % Drops 1 drp OPHTHALMIC (EYE) QPM aspirin 81 mg Tablet,Delayed Release (Dr/Ec) 81 mg PO QDAY spironolactone [Aldactone] 25 mg Tablet 25 mg PO QDAY Januvia 50 mg Tablet 50 mg PO QDAY No Action dorzolamide-timolol [Cosopt] 22.3-6.8 mg/mL Drops 1 drp OPHTHALMIC (EYE) BID Referrals: Huy Matute, [employer] [Primary Care Provider] - Patient/Caregiver Discharge Instructions Education Materials: Pleural Effusion, Thoracentesis Dc, What Is Hospice?, Hospice: As Nears, Heart Failure Dc Print Language: Maltese Stand Alone Forms: Alicia Award Info., Patient Portal Info Letter Discharge Order Discharge Orders: Discharge (Routine); Ordered 08/03/24 Ordered By: Mickey Constantino Quality Discharge Quality Measures comfort care/end of life
[2024-08-03] MEDS: HYDROcodone/APAP 5/325 TABLET 1 TAB PO (15:37)
--- NOTE | 2024-08-04 02:00 | ESPR_ITS ---
RE: WALDEMAR CHOUDHARY : 1935 DATE OF SERVICE: 08/03/2024 SUBJECTIVE: Waldemar Choudhary appears to be doing a little better today; however, the patient does not want to have any thoracentesis or pleural effusion drainage and the patient decided to have hospice care, go home with oxygen and comfort measures only. He has a large pleural effusion that is recurrent possibly from Eliquis, unlikely to be malignancy, but the patient continues to feel about the same. Cardiac osman was stable, but multiple other issues. Hence, the patient wants to be in hospice care. I discussed with the family, agree with the treatment plan and recommendation. As per the patient's wishes, we luc discharge home with hospice care DT: 23:41:30 TT: 01:48:00 Ref: [id number] - TID: [id number] MTDD
[2024-08-04 04:08] LABS: Vitamin D 25 Hydroxy Total 15.3 ng/mL (7.3-40.2)
[2024-08-04 07:00] LABS: Aspergillus Ag, Ser* NOT DETECTED
== END 2024-08-03 17:38 | disposition hospice, home (50) | DRG 871 ==
LOC: SERX 17:30 → SERHOLD 17:57 → S2NX 07-25 14:31
PROVIDERS: Internal Medicine Infectious Disease; Student in an Organized Health Care Education/Training Program; Admitting Provider Student in an Organized Health Care Education/Training Program; Emergency Provider Emergency Medicine; PCP Registered Nurse General Practice; Visit Provider Internal Medicine
DX: A41.9 Sepsis, unspecified organism (principal); J18.9 Pneumonia, unspecified organism; J96.01 Acute respiratory failure with hypoxia; J69.0 Pneumonitis due to inhalation of food and vomit; I50.32 Chronic diastolic (congestive) heart failure; J90 Pleural effusion, not elsewhere classified; B38.0 Acute pulmonary coccidioidomycosis; I11.0 Hypertensive heart disease with heart failure; E78.5 Hyperlipidemia, unspecified; Z95.2 Presence of prosthetic heart valve; N40.0 Benign prostatic hyperplasia without lower urinary tract symptoms; I25.10 Atherosclerotic heart disease of native coronary artery without angina pectoris; Z95.5 Presence of coronary angioplasty implant and graft; Z66 Do not resuscitate; E11.9 Type 2 diabetes mellitus without complications; Z85.51 Personal history of malignant neoplasm of bladder; Z95.810 Presence of automatic (implantable) cardiac defibrillator; Z90.79 Acquired absence of other genital organ(s); Z87.891 Personal history of nicotine dependence; Z95.1 Presence of aortocoronary bypass graft; Z85.46 Personal history of malignant neoplasm of prostate
CPT/HCPCS: 36415; 36600; 71045; 71260; 71275; 74177; 76999; 80053; 80061; 80202; 81001; 82150; 82164; 82306; 82378; 82652; 82785; 82803; 82945; 83036; 83605; 83615; 83735; 83880; 83970; 84100; 84145; 84153; 84157; 84443; 84484; 85025; 85379; 85610; 85652; 86140; 86301; 86304; 86635; 86803; 87040; 87070; 87075; 87081; 87086; 87205; 87305; 87400; 87449; 87502; 87634; 87811; 89051; 89220; 93005; 93306; 93970; 94640; 94660; 96365; 96372; 96375; 97162; 99291; A4649; A9270; C1729; J0456; J0692; J0696; J1450; J1643; J1940; J1956; J2060; J2270; J3370; J3475; J3480; J3490; J7040; J7050; J7120; Q9967; J1836